=== PATIENT | female | born 1960 | race Caucasian/White ===

== ENCOUNTER 2018-08-27 12:38 | Inpatient (IN) ==
--- NOTE | 2018-08-27 13:32 | Emergency Department Note ---
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 Per the patient's caretakers the patient is cognitively delayed and lives in a residential. They state that at lunch today the patient was eating pureed hamburger helper when she began to choke. They state that they believe she tried to take a breath and accidentally aspirated the meal. They state that the patient did not cough anything up at the time, and was laughing and talking normally several minutes after the event. They state that the patient as a history of aspiration, and that it's in their protocol to bring the patient to the ED to be evaluated anytime she chokes. The patient denies any current difficulty breathing, chest pain, fevers, chills, cough, abdominal pain, nausea, or vomiting. The history, physical exam, and medical decision making was performed by the medical student either while I was physically present and actively involved or I personally re-performed the exam and medical decision making. I have verified the accuracy of the medical student's documentation with regards to the history, physical exam findings, and medical decision making. 57-year-old female with developmental delay presents emergency department with concern for aspiration on her pureed beef. Patient not reporting any symptoms after that time. She only had an episode of choking, but has been acting normally per her caregivers. 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) Pain Scale: 0 - Related Data Home Medications Medication Instructions Recorded Confirmed Aspirin Enteric Coated [Aspirin EC] 81 mg PO DAILY 06/11/16 08/27/18 Bismuth Subsalicylate 15 ml PO Q4H PRN 06/11/16 08/27/18 [PEPTO-BISMOL (262mg/15mL) Susp] Calcium Carbonate/Vitamin D3 1 tab PO DAILY 06/11/16 08/27/18 [Oyster Shell Calcium-Vit D Tab] Cholecalciferol (D-3) [Vitamin D] 1,000 unit PO DAILY 06/11/16 08/27/18 Furosemide [Lasix] 20 mg PO QPM 06/11/16 08/27/18 GuaiFENesin/Dextromethorphan 5 ml PO Q4H PRN 06/11/16 08/27/18 [Tussin Dm Syrup] Ibuprofen [Motrin] 600 mg PO BID PRN 06/11/16 08/27/18 Latanoprost [Xalatan] 1 drop RIGHT EYE HS 06/11/16 08/27/18 Loperamide HCl [Imodium A-D] 2 mg PO AD PRN 06/11/16 08/27/18 Loratadine [Claritin] 10 mg PO DAILY 06/11/16 08/27/18 Reagan/Poly/Geovany OINT [Triple 1 appl TP TID PRN 06/11/16 08/27/18 Antibiotic Ointment] Divalproex Sodium [Depakote] 500 mg PO BID 09/03/16 08/27/18 Acetaminophen [Tylenol] 500 mg PO Q6HR PRN 08/27/18 08/27/18 Atorvastatin [Lipitor] 40 mg PO QPM 08/27/18 08/27/18 Benztropine [Cogentin] 1 mg PO BID 08/27/18 08/27/18 Doxycycline Hyclate [Vibramycin] 100 mg PO BID 08/27/18 08/27/18 Fluvoxamine Maleate 50 mg PO QPM 08/27/18 08/27/18 Furosemide [Lasix] 40 mg PO QAM 08/27/18 08/27/18 Icosapent Ethyl [Vascepa] 1 cap PO TID 08/27/18 08/27/18 Levothyroxine Sodium 112 mcg PO QAM 08/27/18 08/27/18 Meloxicam 7.5 mg PO QAM 08/27/18 08/27/18 MetroNIDAZOLE [Metrocream] 1 applic TP BID 08/27/18 08/27/18 Multivitamin [One Daily Essential] 1 each PO DAILY 08/27/18 08/27/18 Mupirocin [Bactroban Oint] 1 applic TP TID 08/27/18 08/27/18 Propranolol [Inderal] 20 mg PO BID 08/27/18 08/27/18 Selenium Sulfide/Aloe Vera [Selsun 1 appl TP AD 08/27/18 08/27/18 Blue Moist 1% Shampoo] cloZAPine [Clozaril] 12.5 mg PO BID 08/27/18 08/27/18 clonazePAM [Clonazepam] 0.25 mg PO QAM 08/27/18 08/27/18 clonazePAM [Clonazepam] 0.5 mg PO QPM 08/27/18 08/27/18 Allergies Allergy/AdvReac Type Severity Reaction Status Date / Time betamethasone Allergy Hives Verified 04/20/17 20:35 [From Lotrisone] carbamazepine [From Tegretol] Allergy Hives Verified 04/20/17 20:35 chlorpromazine Allergy Hives Verified 04/20/17 20:35 [From Thorazine] clotrimazole [From Lotrisone] Allergy Hives Verified 04/20/17 20:35 Mesoridazine [From Serentil] Allergy Hives Verified 04/20/17 20:35 All systems ED: reviewed and negative except as stated. Review of Systems: As Per HPI Limitations: ROS unobtainable due to patients medical condition (Development delay) Constitutional: Denies: fever, chills, weakness, weight change Eyes: Denies: eye pain, eye discharge, vision change ENT ED: Denies: ear pain, throat pain, dental pain, hearing loss, epistaxis, congestion, dysphagia Cardiovascular: Denies: chest pain, palpitations, dyspnea on exertion, edema, syncope Respiratory: Reports: dyspnea (Had initially, none currently). Denies: cough, wheezes, hemoptysis, stridor Gastrointestinal: Denies: abdominal pain, nausea, vomiting, diarrhea, constipation, hematemesis, melena, hematochezia Genitourinary: Denies: dysuria, frequency, hematuria, discharge Musculoskeletal: Denies: back pain, neck pain, arthralgia, myalgia Integumentary: Reports: as per HPI. Denies: rash, abrasion, lesions Neurological: Reports: as per HPI. Denies: headache, weakness, numbness, paresthesias, confusion, abnormal gait, vertigo Psychiatric: Reports: as per HPI, other (Cognitively delayed). 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 LEADER history: Reports: no THERAPEUTIC RECREATION LEADER history - Social History Smoking Status: Never smoker Smokeless Tobacco Status: No Alcohol use: Reports: none Drug use: Reports: none Physical Exam - General Limitations: no limitations General appearance: alert - Head Head exam: atraumatic, normocephalic, normal inspection - Eye Eye exam: Present: normal appearance, PERRL, EOMI - ENT ENT exam: normal exam, normal oropharynx, mucous membranes moist - Neck Neck exam: Present: normal inspection, full ROM, trachea midline - Chest Chest inspection: Present: normal inspection, symmetric chest wall rise - Respiratory Respiratory exam: Present: normal lung sounds bilaterally. Absent: respiratory distress, wheezes, stridor - Cardiovascular Cardiovascular exam: Present: regular rate, normal rhythm, normal heart sounds - Abdominal Exam Abdominal exam: Present: soft, Non-Tender. Absent: tenderness, distention, guarding, rebound, rigidity - Extremities Exam Extremities exam: Present: normal inspection, full ROM. Absent: tenderness, pedal edema - Back Exam Back exam: Present: normal inspection, full ROM. Absent: tenderness - Neurological Exam Neurological exam: Present: alert, oriented X3 - Psychiatric Psychiatric exam: Present: normal affect, normal mood - Skin Skin exam: Present: warm, dry, intact, normal color Course Vital Signs Temperature 97.9 F 08/27/18 12:44 Pulse Rate 82 08/27/18 12:44 Respiratory Rate 20 08/27/18 12:44 Blood Pressure 129/70 08/27/18 12:44 O2 Sat by Pulse Oximetry 96 08/27/18 12:44 Temperature 97.9 F 08/27/18 12:44 Pulse Rate 85 08/27/18 16:37 Respiratory Rate 19 08/27/18 16:37 Blood Pressure 100/84 08/27/18 16:37 O2 Sat by Pulse Oximetry 93 08/27/18 16:37 Oxygen Delivery Oxygen Delivery Nasal Cannula Medical Decision Making - [facility] Narrative Medical decision making narrative: 57-year-old female presents emergency Department concern for aspiration. Patient hemodynamically stable not in any acute distress at initial presentation. We will obtain chest x-ray did not reveal any acute on amount. Patient was able tolerate oral intake. However, at time of disposition, patient became hypoxic 104 L of oxygen via nasal cannula. She was tachycardic as well. We obtained CT angiogram of the chest. Not reveal any evidence of pneumonia or pneumonitis. However, at this time, patient will require admission as she does not have oxygen at the residential. Also, she needed observation for further observation. I spoke with Dr. Croft, the teacher of gifted students, who stated that she did not require any bronchoscopy at this time. Patient stable on 4 L of oxygen via nasal cannula at time of admission. Chest X-Ray 08/27/18 13:59 IMPRESSION: Unremarkable appearing lateral view of the chest D/ / Jez Chand MD / Jez Chand MD Interpreting Provider: Jez Chand MD Chest CTA 08/27/18 17:00 IMPRESSION: 1. No acute pulmonary emboli. 2. Mild hypoaeration and atelectasis with no evidence of aspiration pneumonitis. No effusion or pneumothorax. 3. Mild cardiomegaly with no acute mediastinal abnormality. 4. Severe hepatic steatosis. D/ : / 08/27/2018 20:03:53 Earle Garcia MD / eli Interpreting Provider: Earle Garcia MD Vital Signs Temperature 97.9 F 08/27/18 12:44 Pulse Rate 82 08/27/18 12:44 Respiratory Rate 20 08/27/18 12:44 Blood Pressure 129/70 08/27/18 12:44 O2 Sat by Pulse Oximetry 96 08/27/18 12:44 Temperature 97.9 F 08/27/18 12:44 Pulse Rate 85 08/27/18 16:37 Respiratory Rate 19 08/27/18 16:37 Blood Pressure 100/84 08/27/18 16:37 O2 Sat by Pulse Oximetry 93 08/27/18 16:37 Oxygen Delivery Oxygen Delivery Nasal Cannula - Lab Data Result diagrams: 08/27/18 15:50 08/27/18 15:22 Lab Results 08/27/18 08/27/18 08/27/18 Range/Units 15:22 15:42 15:50 WBC 6.8 (4.3-11.1) K/mcL RBC 5.01 H (3.82-4.97) M/mcL Hgb 14.7 (11.5-15.4) g/dL Hct 46.0 H (35.3-44.9) % MCV 91.8 (83.0-100.0) fL MCH 29.3 (28.0-33.3) pg MCHC 32.0 (31.6-35.5) g/dL RDW 12.4 (11.5-14.5) % Plt Count 134 L (140-400) K/mcL MPV 9.7 (9.4-12.4) fL Immature Gran % 0.4 (0-4) % Seg Neutrophils % 39.0 % Lymphocytes % 42.8 % Monocytes % 14.5 % Eosinophils % 2.7 % Basophils % 0.6 % Neutrophils # 2.6 (1.6-8.9) K/mcL Lymphocytes # 2.9 (0.6-4.6) K/mcL Monocytes # 1.0 (0.0-1.3) K/mcL Eosinophils # 0.2 (0.0-0.6) K/mcL Basophils # 0.0 (0.0-0.2) K/mcL D-Dimer 561 H (0-500) ng/mLFEU Sodium 142 (136-145) mEq/L Potassium 4.4 (3.5-5.1) mEq/L Chloride 101 (98-107) mEq/L Carbon Dioxide 31 H (23-29) mEq/L BUN 16 (6-20) mg/dL Creatinine 0.72 (0.60-1.20) mg/dL Est GFR ( Amer) > 60 (> 60) Est GFR (Non-Af Amer) > 60 (> 60) BUN/Creatinine Ratio 22 (6-26) Glucose 130 H (70-105) mg/dL Calculated Osmolality 297 (280-300) Calcium 8.9 (8.6-10.3) mg/dL Troponin I < 0.03 (< 0.04) ng/mL B-Natriuretic Peptide (Less than 100) pg/mL 08/27/18 Range/Units 15:50 WBC (4.3-11.1) K/mcL RBC (3.82-4.97) M/mcL Hgb (11.5-15.4) g/dL Hct (35.3-44.9) % MCV (83.0-100.0) fL MCH (28.0-33.3) pg MCHC (31.6-35.5) g/dL RDW (11.5-14.5) % Plt Count (140-400) K/mcL MPV (9.4-12.4) fL Immature Gran % (0-4) % Seg Neutrophils % % Lymphocytes % % Monocytes % % Eosinophils % % Basophils % % Neutrophils # (1.6-8.9) K/mcL Lymphocytes # (0.6-4.6) K/mcL Monocytes # (0.0-1.3) K/mcL Eosinophils # (0.0-0.6) K/mcL Basophils # (0.0-0.2) K/mcL D-Dimer (0-500) ng/mLFEU Sodium (136-145) mEq/L Potassium (3.5-5.1) mEq/L Chloride (98-107) mEq/L Carbon Dioxide (23-29) mEq/L BUN (6-20) mg/dL Creatinine (0.60-1.20) mg/dL Est GFR ( Amer) (> 60) Est GFR (Non-Af Amer) (> 60) BUN/Creatinine Ratio (6-26) Glucose (70-105) mg/dL Calculated Osmolality (280-300) Calcium (8.6-10.3) mg/dL Troponin I (< 0.04) ng/mL B-Natriuretic Peptide 36 (Less than 100) pg/mL
--- NOTE | 2018-08-27 15:07 | Emergency Department Note ---
Disposition Clinical Impression: Cough, At risk for aspiration, Hypoxia Disposition: Admitted As Inpatient Condition: Good Referrals: Timothy Jenkins MD [Primary Care Provider] - 08/30/18 (cough ) Forms: ED Satisfaction Letter Time of Disposition: 15:07 General Adult HPI - General Chief complaint: ED Shortness of Breath/Dyspnea Stated complaint: LINDSEY Time Seen by Provider: 08/27/18 12:43 Source: patient, EMS Limitations: no limitations - History of Present Illness Pain Scale: 0 - Related Data Home Medications Medication Instructions Recorded Confirmed Aspirin 650 mg PO Q6H PRN 06/11/16 09/03/16 Aspirin Enteric Coated [Aspirin EC] 81 mg PO DAILY 06/11/16 09/03/16 Bismuth Subsalicylate 15 ml PO Q4H PRN 06/11/16 09/03/16 [PEPTO-BISMOL (262mg/15mL) Susp] Calcium Carbonate/Vitamin D3 2 each PO DAILY 06/11/16 09/03/16 [Oyster Shell Calcium-Vit D Tab] Chloraseptic Shell [Chloraseptic] 2 spray MM Q2H PRN 06/11/16 09/03/16 Cholecalciferol (D-3) [Vitamin D] 1,000 unit PO DAILY 06/11/16 09/03/16 Furosemide [Lasix] 20 mg PO QAM 06/11/16 09/03/16 GuaiFENesin/Dextromethorphan 5 ml PO Q4H PRN 06/11/16 09/03/16 [Tussin Dm Syrup] Ibuprofen [Motrin] 600 mg PO BID PRN 06/11/16 09/03/16 Ketotifen Fumarate [Zaditor] 1 drop BOTH EYES BID PRN 06/11/16 09/03/16 Latanoprost [Xalatan] 1 drop RIGHT EYE HS 06/11/16 09/03/16 Levothyroxine [Synthroid] 50 mcg PO QAM 06/11/16 09/03/16 Loperamide HCl [Imodium A-D] 2 mg PO AD PRN 06/11/16 09/03/16 Loratadine [Claritin] 10 mg PO DAILY 06/11/16 09/03/16 Multivitamin [Multi-Day Vitamins] 1 each PO DAILY 06/11/16 09/03/16 Reagan/Poly/Geovany OINT [Triple 1 appl TP TID PRN 06/11/16 09/03/16 Antibiotic Ointment] Hope-3/Dha/Epa/Fish Oil [Fish Oil 1 each PO TID 06/11/16 09/03/16 1,000 mg Softgel] Selenium Sulfide/Menthol [Selsun 1 appl TP DAILY 06/11/16 09/03/16 Blue 1% Shampoo] Simvastatin [Zocor] 20 mg PO DAILY 06/11/16 09/03/16 Triamcinolone Acetonide 1 appl TP BID PRN 06/11/16 09/03/16 Aripiprazole [Abilify] 20 mg PO DAILY 09/03/16 09/03/16 Divalproex Sodium [Depakote] 500 mg PO BID 09/03/16 09/03/16 Escitalopram [Lexapro] 10 mg PO DAILY 09/03/16 09/03/16 Magnesium Hydroxide [Milk of 30 ml PO DAILY PRN 09/03/16 09/03/16 Magnesia] Allergies Allergy/AdvReac Type Severity Reaction Status Date / Time betamethasone Allergy Hives Verified 04/20/17 20:35 [From Lotrisone] carbamazepine [From Tegretol] Allergy Hives Verified 04/20/17 20:35 chlorpromazine Allergy Hives Verified 04/20/17 20:35 [From Thorazine] clotrimazole [From Lotrisone] Allergy Hives Verified 04/20/17 20:35 Mesoridazine [From Serentil] Allergy Hives Verified 04/20/17 20:35 Constitutional: Denies: fever, chills, weakness, weight change Eyes: Denies: eye pain, eye discharge, vision change ENT ED: Denies: ear pain, throat pain, dental pain, hearing loss, epistaxis, congestion, dysphagia Cardiovascular: Denies: chest pain, palpitations, dyspnea on exertion, edema, syncope Respiratory: Reports: dyspnea (Had initially, none currently). Denies: cough, wheezes, hemoptysis, stridor Gastrointestinal: Denies: abdominal pain, nausea, vomiting, diarrhea, constipation, hematemesis, melena, hematochezia Genitourinary: Denies: dysuria, frequency, hematuria, discharge Musculoskeletal: Denies: back pain, neck pain, arthralgia, myalgia Integumentary: Reports: as per HPI. Denies: rash, abrasion, lesions Neurological: Reports: as per HPI. Denies: headache, weakness, numbness, paresthesias, confusion, abnormal gait, vertigo Psychiatric: Reports: as per HPI, other (Cognitively delayed). Denies: anxiety, depression, suicidal thoughts, homicidal thoughts, auditory hallucinations, visual hallucinations Endocrine: Denies: fatigue Hematological/Lymphatic: Denies: easy bleeding, easy bruising Allergic/Immunologic: Denies: facial swelling, urticaria Past Medical History - Past Medical History Medical history: Reports: hyperlipidemia, other, thyroid disease, CHF Surgical history: Reports: no surgical history Psychiatric history: Reports: previous psychiatric hospitalization, other, bipolar TILE HELPER history: Reports: no TILE HELPER history - Social History Smoking Status: Never smoker Smokeless Tobacco Status: No Alcohol use: Reports: none Drug use: Reports: none Physical Exam - General Limitations: no limitations General appearance: alert Course Course Narrative: upon re-evaluation of patient it appears that she is becoming hypoxic to 87% on RA and typically does not need supplemental oxygen therapy and tachycardiac to 120. We will continue to cardooupulmoary wokrup and then admit to medicine [facility] pulmonolofy consutl for possibl fore[place] body apsiration . place on 3LNC and now at 94% Vital Signs Temperature 97.9 F 08/27/18 12:44 Pulse Rate 82 08/27/18 12:44 Respiratory Rate 20 08/27/18 12:44 Blood Pressure 129/70 08/27/18 12:44 O2 Sat by Pulse Oximetry 96 08/27/18 12:44 Temperature 97.9 F 08/27/18 12:44 Pulse Rate 82 08/27/18 12:44 Respiratory Rate 20 08/27/18 12:44 Blood Pressure 129/70 08/27/18 12:44 O2 Sat by Pulse Oximetry 96 08/27/18 12:50 Oxygen Delivery Oxygen Delivery Nasal Cannula Attestation Statement - Attestation Attestation: I examined this patient and my medical decision-making was reviewed with the Resident Physician. I agree with the documented findings, disposition and treatment plan as described except to the extent set forth below. 57 year old female presents to the ED with complaits of possible aspiration while she was eating her food today, CXR is negative. she is tolerating PO and her secretions and denies chest pain or dificulty breathing or swallowing. She is not hypoxic. We will dischargeh home
[2018-08-27] MEDS ORDERED: Ipratropium/Albuterol Neb 3 ML IH ONE (15:23)
[2018-08-27 16:10] LABS: Basophils % 0.6 %; Eosinophils # 0.2 K/mcL (0.0-0.6); Eosinophils % 2.7 %; Hemoglobin 14.7 g/dL (11.5-15.4); Immature Granulocytes % 0.4 % (0-4); Lymphocytes # 2.9 K/mcL (0.6-4.6); Lymphocytes % 42.8 %; Mean Corpuscular Hemoglobin 29.3 pg (28.0-33.3); Mean Corpuscular Volume 91.8 fL (83.0-100.0); Mean Platelet Volume 9.7 fL (9.4-12.4); Monocytes % 14.5 %; Neutrophils # 2.6 K/mcL (1.6-8.9); Platelet Count 134 K/mcL (140-400); Red Blood Count 5.01 M/mcL (3.82-4.97); Red Cell Distribution Width 12.4 % (11.5-14.5)
[2018-08-27 16:25] LABS: Troponin I < 0.03 ng/mL (< 0.04)
[2018-08-27 16:47] LABS: BUN/Creatinine Ratio 22 (6-26); Blood Urea Nitrogen 16 mg/dL (6-20); Calcium 8.9 mg/dL (8.6-10.3); Carbon Dioxide 31 mEq/L (23-29); Chloride 101 mEq/L (98-107); Glucose 130 mg/dL (70-105); Osmolality,Calculated 297 (280-300); Potassium 4.4 mEq/L (3.5-5.1); Sodium 142 mEq/L (136-145); eGFR For Non-African Americans > 60 (> 60)
[2018-08-27] MEDS ORDERED: Isovue-370 500 ML INFUS..BTL IV ONE (17:00)
--- NOTE | 2018-08-27 19:09 | Electrocardiograph Report ---
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
[2018-08-27] MEDS ORDERED: Bismuth Subsalicylate 120 ML ORAL SUSPENSION PO PRN (20:56)
[2018-08-27] MEDS ORDERED: Ibuprofen 600 MG TABLET PO PRN (20:56)
--- NOTE | 2018-08-27 21:15 | Internal Med History&Physical ---
Date of Encounter: 08/27/18 Time of Encounter: 21:13 Internal Medicine - H&P: HPI Chief complaint: hypoxia Admitted From: Home Plans for Post Hospital Care: Home History of present illness: Katya Guzman is a 55 year old woman with intellectual disability and psychiatric disorders who is brought into the emergency room by her caretakers after aspirating pureed food. It is reported that due to her cognitive disability she lives in a [facility] and that frequently undergoes aspiration episodes in which she is brought in for medical assessment. It is stated that as she tried to take a breath she accidentally aspirated her meal. She did not cough up anything and was well-appearing for review minutes afterwards however as per their protocol she is to be brought into the ED any time she reportedly chokes. In the ER she was rather well-appearing and in no acute distress. X- ray did not reveal any abnormalities and she was to be discharged home however on subsequent reassessment she was noted hypoxic to 87% on room air and tachycardic at 120 even though usually she never required supplemental oxygen. She was placed on 3L nasal cannula with improvement to 94% and a CTA was done to rule out foreign body and pulmonary embolism and these findings were negative however due to her ongoing hypoxia with no apparent reason she is admitted for observation. There were no signs of pneumonitis on CT imaging but some mild atelectasis and areas of hypoaeration. On my assessment she reports feeling well. She does admit to having choked on and had some difficulty breathing but feels better with the breathing treatment. She denies chest pain, fever, chills. Past Med Surg Social Fam HX - Past Medical History Medical history: hyperlipidemia, other, thyroid disease, CHF Additional medical history: Psychiatric history: previous psychiatric hospitalization, other, bipolar - Past Surgical History Surgical History: no surgical history Additional surgical history: uk - Social History Smoking Status: Never smoker Smokeless Tobacco Status: No Alcohol use: none Drug use: none Internal Medicine - H&P: Meds Aspirin Enteric Coated [Aspirin EC] 81 mg PO DAILY 06/11/16 [History] Bismuth Subsalicylate [PEPTO-BISMOL (262mg/15mL) Susp] 15 ml PO Q4H PRN 06/11/16 [History] Calcium Carbonate/Vitamin D3 [Oyster Shell Calcium-Vit D Tab] 1 tab PO DAILY 06/11/16 [History] Cholecalciferol (D-3) [Vitamin D] 1,000 unit PO DAILY 06/11/16 [History] Furosemide [Lasix] 20 mg PO QPM 06/11/16 [History] GuaiFENesin/Dextromethorphan [Tussin Dm Syrup] 5 ml PO Q4H PRN 06/11/16 [History] Ibuprofen [Motrin] 600 mg PO BID PRN 06/11/16 [History] Latanoprost [Xalatan] 1 drop RIGHT EYE HS 06/11/16 [History] Loperamide HCl [Imodium A-D] 2 mg PO AD PRN 06/11/16 [History] Loratadine [Claritin] 10 mg PO DAILY 06/11/16 [History] Reagan/Poly/Geovany OINT [Triple Antibiotic Ointment] 1 appl TP TID PRN 06/11/16 [History] Divalproex Sodium [Depakote] 500 mg PO BID 09/03/16 [History] Acetaminophen [Tylenol] 500 mg PO Q6HR PRN 08/27/18 [History] Atorvastatin [Lipitor] 40 mg PO QPM 08/27/18 [History] Benztropine [Cogentin] 1 mg PO BID 08/27/18 [History] Doxycycline Hyclate [Vibramycin] 100 mg PO BID 08/27/18 [History] Fluvoxamine Maleate 50 mg PO QPM 08/27/18 [History] Furosemide [Lasix] 40 mg PO QAM 08/27/18 [History] Icosapent Ethyl [Vascepa] 1 cap PO TID 08/27/18 [History] Levothyroxine Sodium 112 mcg PO QAM 08/27/18 [History] Meloxicam 7.5 mg PO QAM 08/27/18 [History] MetroNIDAZOLE [Metrocream] 1 applic TP BID 08/27/18 [History] Multivitamin [One Daily Essential] 1 each PO DAILY 08/27/18 [History] Mupirocin [Bactroban Oint] 1 applic TP TID 08/27/18 [History] Propranolol [Inderal] 20 mg PO BID 08/27/18 [History] Selenium Sulfide/Aloe Vera [Selsun Blue Moist 1% Shampoo] 1 appl TP AD 08/27/18 [History] cloZAPine [Clozaril] 12.5 mg PO BID 08/27/18 [History] clonazePAM [Clonazepam] 0.25 mg PO QAM 08/27/18 [History] clonazePAM [Clonazepam] 0.5 mg PO QPM 08/27/18 [History] Allergy/AdvReac Type Severity Reaction Status Date / Time betamethasone Allergy Hives Verified 04/20/17 20:35 [From Lotrisone] carbamazepine [From Tegretol] Allergy Hives Verified 04/20/17 20:35 chlorpromazine Allergy Hives Verified 04/20/17 20:35 [From Thorazine] clotrimazole [From Lotrisone] Allergy Hives Verified 04/20/17 20:35 Mesoridazine [From Serentil] Allergy Hives Verified 04/20/17 20:35 All Systems PM: A 10-system review of systems was performed and is negative for pertinent findings except as documented above in the HPI. Family history obtained and found noncontributory. - Constitutional Vitals: Temp Pulse Resp BP Pulse Ox 97.9 F 85 19 100/84 93 08/27/18 12:44 08/27/18 16:37 08/27/18 16:37 08/27/18 16:37 08/27/18 16:37 Exam: Vitals: Reviewed General: Well-developed white woman, lying comfortably in bed in NAD. Skin: Warm and supple. HEENT: Moist mucous membranes. No conjunctivae pallor. Neck: No lymphadenopathy. No JVD. No carotid bruits. No palpable thyroid. Chest: Normal thoracic expansion. Normal breath sounds. Clear to auscultation. Heart: Normal S1 & S2; rhythmic. No rubs or murmurs. Abdomen: Non-distended, soft and non-tender to palpation. No peritoneal reaction. Extremities: No clubbing, cyanosis or edema. No calf tenderness. Normal distal pulses. Neurological: Awake, alert and oriented to person, place and time. No focal deficits. Psych: Affect appropriate. Internal Med - H&P Results - Labs CBC & Chem 7: 08/27/18 15:50 08/27/18 15:22 Labs: Short CBC 08/27/18 Range/Units 15:50 WBC 6.8 (4.3-11.1) K/mcL Hgb 14.7 (11.5-15.4) g/dL Hct 46.0 H (35.3-44.9) % Plt Count 134 L (140-400) K/mcL Neutrophils # 2.6 (1.6-8.9) K/mcL BMP 08/27/18 15:22 Sodium 142 Potassium 4.4 Chloride 101 Carbon Dioxide 31 H BUN 16 Creatinine 0.72 Glucose 130 H Calcium 8.9 Cardiac Enzymes 08/27/18 Range/Units 15:22 Troponin I < 0.03 (< 0.04) ng/mL - Impressions ITS Impressions Chest X-Ray 08/27/18 13:17 IMPRESSION: No acute cardiopulmonary disease. D/ / 08/27/2018 14:19:29 [facility] Shah MD / [facility] Interpreting Provider: Ten Shah MD Chest X-Ray 08/27/18 13:59 IMPRESSION: Unremarkable appearing lateral view of the chest D/ / Jez Chand MD / Jez Chand MD Interpreting Provider: Jez Chand MD Chest CTA 08/27/18 17:00 IMPRESSION: 1. No acute pulmonary emboli. 2. Mild hypoaeration and atelectasis with no evidence of aspiration pneumonitis. No effusion or pneumothorax. 3. Mild cardiomegaly with no acute mediastinal abnormality. 4. Severe hepatic steatosis. D/ : / 08/27/2018 20:03:53 Earle Garcia MD / [facility] Interpreting Provider: Earle Garcia MD - Assessment and plan (1) Hypoxia Current Visit: Yes Status: Acute Assessment and plan: Unclear reason; possibly transient due to aspiration episode. Seems to be i mproving. No signs of pneumonitis; possible atelectasis component. No indication for steroids or antimicrobials. Will monitor overnight and continue supplemental oxygen as needed with nebulizer therapy. Incentive spirometry trial. (2) Mental retardation Current Visit: Yes Status: Chronic Assessment and plan: Resume all home meds. - Time Spent With Patient Total time spent is greater than 50% in coordination of care (as documented) at patient's floor/unit and/or counseling patient: Greater than 35 minutes
[2018-08-27] MEDS: clonazePAM 0.5 MG TABLET PO SCH (23:35)
[2018-08-27] MEDS: Latanoprost 2.5 ML BOTTLE RIGHT EYE SCH (23:35)
[2018-08-27] MEDS: Divalproex (12 HR) 250 MG TABLET PO SCH (23:35)
[2018-08-27] MEDS: cloZAPine 25 MG TABLET PO SCH (23:36)
[2018-08-27] MEDS: ICOSAPENT ETHYL PO SCH (23:38)
[2018-08-27] MEDS: Ipratropium/Albuterol Neb 3 ML IH SCH (23:39)
[2018-08-28] MEDS: Ipratropium/Albuterol Neb 3 ML IH SCH ×2 (03:48→10:50)
[2018-08-28] MEDS: *HR* Heparin 5,000 UNIT/ML VIAL SQ SCH ×2 (05:49→17:43)
[2018-08-28] MEDS: Loratadine 10 MG TABLET PO SCH (09:23)
[2018-08-28] MEDS: Furosemide 40 MG TABLET PO SCH (09:23)
[2018-08-28] MEDS: clonazePAM 0.5 MG TABLET PO SCH ×2 (09:23→17:43)
[2018-08-28] MEDS: Divalproex (12 HR) 250 MG TABLET PO SCH ×2 (09:24→20:30)
[2018-08-28] MEDS: cloZAPine 25 MG TABLET PO SCH ×2 (09:24→20:30)
[2018-08-28] MEDS: Cholecalciferol (D-3) 1,000 UNIT TABLET PO SCH (09:24)
[2018-08-28] MEDS: Multivit/Ca/Min/Fe/FA 1 TAB TABLET PO SCH (09:24)
[2018-08-28] MEDS: Aspirin Enteric Coated 81 MG Tablet PO SCH (09:24)
[2018-08-28] MEDS: ICOSAPENT ETHYL PO SCH ×3 (09:25→20:40)
[2018-08-28] MEDS ORDERED: Perflutren Lipid Microsphere 1.3 ML in 0.9 % Sodium Chloride 8.7 ML IVP ONE (11:32)
[2018-08-28] MEDS: FLUVOXAMINE MALEATE 50 MG PO SCH (17:43)
[2018-08-28] MEDS: Furosemide 20 MG TABLET PO SCH (17:43)
[2018-08-28] MEDS: Latanoprost 2.5 ML BOTTLE RIGHT EYE SCH (20:31)
--- NOTE | 2018-08-28 21:21 | Internal Med Progress Note ---
Hospitalist Progress Note - Encounter Date of Encounter: 08/28/18 Time of Encounter: 19:00 - Subjective Interval History: SUBJECTIVE: The patient feels good. She is not voicing any particular problems. She tells me, that she is not using oxygen at her home. She was brought here for hypoxia. She has underlying mental retardation. I found her on 5 L/min nasal cannula oxygen. I decreased it to 2 L/min; got a pulse ox of 92%. She is not showing any respiratory distress. I could not hear her coughing or wheezing. OBJECTIVE: Skin: Free of rash and discoloration. ENMT: Oral/pharyngeal mucosa is normal in appearance. Eyes: Sclera is white. There is no discharge from eyes. Respiratory: Normal breath sounds; no crackles or wheezes. CV: Heart is regular; no gallop or murmur. GI: Abdomen is soft and not tender. There is no palpable mass or visceromegaly. Neuro: There is no focal deficits. ADDITIONAL DATA: Her CBC and BMP from yesterday were normal. BNP was 36. CT angio of the chest was done at admission. It showed severe hepatic steatosi s. Otherwise, it showed normal findings. ASSESSMENT AND PLAN: Hypoxia. I will keep her on 2 L/min nasal cannula oxygen. I will repeat her chest x-ray tomorrow. She will have ABG on room air soon. She could have had aspiration. It is not reflected on her chest x-ray from admission. We will get her speech therapy to evaluate. Mental retardation. She has multiple psychiatric medications to keep her under control. DISPOSITION: - Exam Vitals: Temp Pulse Resp BP Pulse Ox 99.4 F 91 16 117/77 91 08/28/18 19:58 08/28/18 19:58 08/28/18 19:58 08/28/18 19:58 08/28/18 19:58 Exam: xx - Assessment and Plan (1) Hypoxia Current Visit: Yes Status: Acute (2) Mental retardation Current Visit: Yes Status: Chronic - Time Spent with Patient Total time spent is greater than 50% in coordination of care (as documented) at patient's floor/unit and/or counseling patient: 25 - 35 minutes Plan of Care Discussed with: patient Internal Medicine: Result - Labs CBC & Chem 7: 08/27/18 15:50 08/27/18 15:22 - ABG Interpretation ABG results: PT/INR, D-dimer D-Dimer 561 ng/mLFEU (0-500) H 08/27/18 15:42 Consult Discharge Plan - Plan Referrals: Timothy Jenkins MD [Primary Care Provider] -
[2018-08-29] MEDS: *HR* Heparin 5,000 UNIT/ML VIAL SQ SCH ×2 (06:09→17:23)
[2018-08-29] MEDS: Multivit/Ca/Min/Fe/FA 1 TAB TABLET PO SCH (09:35)
[2018-08-29] MEDS: clonazePAM 0.5 MG TABLET PO SCH ×2 (09:35→17:23)
[2018-08-29] MEDS: Aspirin Enteric Coated 81 MG Tablet PO SCH (09:35)
[2018-08-29] MEDS: cloZAPine 25 MG TABLET PO SCH ×2 (09:35→20:36)
[2018-08-29] MEDS: Divalproex (12 HR) 250 MG TABLET PO SCH ×2 (09:36→20:36)
[2018-08-29] MEDS: Loratadine 10 MG TABLET PO SCH (09:36)
[2018-08-29] MEDS: ICOSAPENT ETHYL PO SCH ×3 (09:36→20:37)
[2018-08-29] MEDS: Furosemide 40 MG TABLET PO SCH (09:36)
[2018-08-29] MEDS: Cholecalciferol (D-3) 1,000 UNIT TABLET PO SCH (09:36)
[2018-08-29] MEDS ORDERED: Furosemide 40 MG/4 ML VIAL IVP ONE (09:52)
--- NOTE | 2018-08-29 15:06 | Internal Med Progress Note ---
Hospitalist Progress Note - Encounter Date of Encounter: 08/29/18 Time of Encounter: 15:04 - Subjective Interval History: SUBJECTIVE: The patient he is using supplemental oxygen at 2 L/min nasal cannula. It gives her oxygen saturation of 90%. I gave her 40 mg of IV Lasix; he did not get her pulse ox better. She is not voicing any particular problems. We have not seen her having any symptoms/signs of aspiration with food/fluids. She does not have any coughing or wheezing. OBJECTIVE: She is afebrile. Skin: Free of rash and discoloration. ENMT: Oral/pharyngeal mucosa is normal in appearance. Eyes: Sclera is white. There is no discharge from eyes. Respiratory: Normal breath sounds; no crackles or wheezes. CV: Heart is regular; no gallop or murmur. GI: Abdomen is soft and not tender. There is no palpable mass or visceromegaly. Neuro: There is no focal deficits. ADDITIONAL DATA: Chest x-ray from today (before giving her IV Lasix) showed patchy right lower lung opacity; may represent atelectasis versus pneumonia. CT angio of the chest was done at admission. It showed severe hepatic steatosis. Otherwise, it showed normal findings. ASSESSMENT AND PLAN: Hypoxia. I will keep her on 2 L/min nasal cannula oxygen. She is on oral Lasix . I will check her CBC and BMP, as well as chest x-ray tomorrow. I am asking respiratory therapy to do ABG on 2 L/min nasal cannula oxygen. Mental retardation. She has multiple psychiatric medications to keep her under control. DISPOSITION: We will discharge her to her home tomorrow, if she remains stable. - Exam Vitals: Temp Pulse Resp BP Pulse Ox 98.1 F 92 18 124/70 98 08/29/18 12:12 08/29/18 12:12 08/29/18 12:12 08/29/18 12:12 08/29/18 12:12 Exam: xx - Assessment and Plan (1) Hypoxia Current Visit: Yes Status: Acute (2) Mental retardation Current Visit: Yes Status: Chronic - Time Spent with Patient Total time spent is greater than 50% in coordination of care (as documented) at patient's floor/unit and/or counseling patient: 25 - 35 minutes Plan of Care Discussed with: patient Internal Medicine: Result - Labs CBC & Chem 7: 08/27/18 15:50 08/27/18 15:22 - ABG Interpretation ABG results: PT/INR, D-dimer D-Dimer 561 ng/mLFEU (0-500) H 08/27/18 15:42 - Impressions Impressions Chest X-Ray 08/29/18 00:00 IMPRESSION: Patchy right lower lung opacity may represent atelectasis versus pneumonia. Mild pulmonary edema. D/ / Jason Edouard MD / Jason Edouard MD Interpreting Provider: Jason Edouard MD Consult Discharge Plan - Plan Referrals: Timothy Jenkins MD [Primary Care Provider] -
[2018-08-29 15:51] LABS: ABG Base Excess 13 mEq/L (-2 to 3); ABG HCO3 43 mEq/L (21-27); ABG Oxygen Saturation 87 % (95-98); ABG PCO2 81 mmHg (35-45); ABG PH 7.34 pH Units (7.32-7.45); ABG PO2 61 mmHg (85-104); ABG TCO2 46 mEq/L (20-26)
[2018-08-29] MEDS: FLUVOXAMINE MALEATE 50 MG PO SCH (17:23)
[2018-08-29] MEDS: Furosemide 20 MG TABLET PO SCH (17:23)
[2018-08-29] MEDS: Latanoprost 2.5 ML BOTTLE RIGHT EYE SCH (20:37)
[2018-08-30 04:39] LABS: Basophils % 0.4 %; Eosinophils # 0.2 K/mcL (0.0-0.6); Eosinophils % 2.2 %; Hemoglobin 15.1 g/dL (11.5-15.4); Immature Granulocytes % 0.3 % (0-4); Lymphocytes # 3.9 K/mcL (0.6-4.6); Lymphocytes % 42.6 %; Mean Corpuscular HGB Conc 32.8 g/dL (31.6-35.5); Mean Corpuscular Hemoglobin 29.6 pg (28.0-33.3); Mean Corpuscular Volume 90.2 fL (83.0-100.0); Mean Platelet Volume 9.8 fL (9.4-12.4); Monocytes # 1.2 K/mcL (0.0-1.3); Neutrophils # 3.8 K/mcL (1.6-8.9); Platelet Count 116 K/mcL (140-400); Red Cell Distribution Width 12.3 % (11.5-14.5); Segmented Neutrophils % 41.5 %
[2018-08-30 04:56] LABS: BUN/Creatinine Ratio 28 (6-26); Blood Urea Nitrogen 19 mg/dL (6-20); Calcium 8.3 mg/dL (8.6-10.3); Carbon Dioxide 34 mEq/L (23-29); Chloride 101 mEq/L (98-107); Glucose 96 mg/dL (70-105); Magnesium 2.2 mg/dL (1.6-2.6); Osmolality,Calculated 298 (280-300); Potassium 5.4 mEq/L (3.5-5.1); Sodium 143 mEq/L (136-145); eGFR For Non-African Americans > 60 (> 60)
[2018-08-30] MEDS: *HR* Heparin 5,000 UNIT/ML VIAL SQ SCH ×2 (06:38→17:09)
[2018-08-30] MEDS: clonazePAM 0.5 MG TABLET PO SCH ×2 (08:30→17:09)
[2018-08-30] MEDS: Multivit/Ca/Min/Fe/FA 1 TAB TABLET PO SCH (08:30)
[2018-08-30] MEDS: Aspirin Enteric Coated 81 MG Tablet PO SCH (08:30)
[2018-08-30] MEDS: cloZAPine 25 MG TABLET PO SCH ×2 (08:31→20:16)
[2018-08-30] MEDS: Cholecalciferol (D-3) 1,000 UNIT TABLET PO SCH (08:31)
[2018-08-30] MEDS: Divalproex (12 HR) 250 MG TABLET PO SCH ×2 (08:31→20:16)
[2018-08-30] MEDS: Loratadine 10 MG TABLET PO SCH (08:31)
[2018-08-30] MEDS: Furosemide 40 MG TABLET PO SCH (08:31)
[2018-08-30] MEDS: Furosemide 20 MG TABLET PO SCH (17:10)
[2018-08-30] MEDS: Latanoprost 2.5 ML BOTTLE RIGHT EYE SCH (20:19)
--- NOTE | 2018-08-30 22:12 | Internal Med Progress Note ---
Hospitalist Progress Note - Encounter Date of Encounter: 08/30/18 Time of Encounter: 19:00 - Subjective Interval History: SUBJECTIVE: The patient feels better today. I had to put her on BiPAP yesterday as she became lethargic; ABG showed PCO2 of 81 with PO2 of 61. Bicarb was 43. Today's bicarb by BMPs is 34. She talked to me. She knows that she is in the hospital. Feels good. Denies any chest pain. Denies difficulty breathing; on BiPAP. She has no coughing or wheezing. Denies abdominal pain, nausea and vomiting. She has normal urination. OBJECTIVE: She is afebrile. Skin: Free of rash and discoloration. ENMT: Oral/pharyngeal mucosa is normal in appearance. Eyes: Sclera is white. There is no discharge from eyes. Respiratory: Normal breath sounds; no crackles or wheezes. CV: Heart is regular; no gallop or murmur. GI: Abdomen is soft and not tender. There is no palpable mass or visceromegaly. Neuro: There is no focal deficits. ADDITIONAL DATA: Chest x-ray from yesterday (before giving her IV Lasix) showed patchy right lower lung opacity; may represent atelectasis versus pneumonia. Chest x-ray from today shows resolution of the right lower lobe opacity; it was likely atelectasis. CT angio of the chest was done at admission. It showed severe hepatic steatosis. Otherwise, it showed normal findings. CBC is normal with WBC of 9.2 thousand. BMP is normal, except of [id number]. ASSESSMENT AND PLAN: Hypoxia. Acute respiratory failure with hypoxia and hypercapnia. It looks like hypercapnia subsided. We will try to discontinue BiPAP. We will continue nebulizer treatments with DuoNeb. We may need to discontinue clonazepam, if she develops hypercapnia again. Dysphagia. The patient had swallowing evaluation today morning. They recommend pured diet/puddings. She may have regular liquids. Mental retardation. She has multiple psychiatric medications to keep her under control. DISPOSITION: We will [facility] to her [facility], when medically stable for minimum 24 hours. - Exam Vitals: Temp Pulse Resp BP Pulse Ox 98.4 F 87 18 155/86 90 08/30/18 19:25 08/30/18 19:25 08/30/18 19:25 08/30/18 19:25 08/30/18 19:25 Exam: xx - Assessment and Plan (1) Hypoxia Current Visit: Yes Status: Acute (2) Dysphagia Current Visit: Yes Status: Acute (3) Mental retardation Current Visit: Yes Status: Chronic - Time Spent with Patient Total time spent is greater than 50% in coordination of care (as documented) at patient's floor/unit and/or counseling patient: 25 - 35 minutes Plan of Care Discussed with: patient Internal Medicine: Result - Labs CBC & Chem 7: 08/30/18 04:20 08/30/18 04:20 Labs: Short CBC 08/30/18 Range/Units 04:20 WBC 9.2 (4.3-11.1) K/mcL Hgb 15.1 (11.5-15.4) g/dL Hct 46.0 H (35.3-44.9) % Plt Count 116 L (140-400) K/mcL Neutrophils # 3.8 (1.6-8.9) K/mcL BMP 08/30/18 04:20 Sodium 143 Potassium 5.4 H Chloride 101 Carbon Dioxide 34 H BUN 19 Creatinine 0.68 Glucose 96 Calcium 8.3 L - ABG Interpretation ABG results: ABG ABG pH 7.34 pH Units (7.32-7.45) 08/29/18 15:48 ABG pCO2 81 mmHg (35-45) H* 08/29/18 15:48 ABG pO2 61 mmHg (85-104) L 08/29/18 15:48 ABG O2 Saturation 87 % (95-98) L 08/29/18 15:48 PT/INR, D-dimer D-Dimer 561 ng/mLFEU (0-500) H 08/27/18 15:42 - Impressions Impressions Chest X-Ray 08/30/18 08:36 IMPRESSION: Resolved previously present right lower lobe opacity, favored to be due to atelectasis, less likely pneumonia. No acute cardiopulmonary disease. D/ / Ten Muhammad MD / Ten Muhammad MD Interpreting Provider: Ten Muhammad MD Consult Discharge Plan - Plan Referrals: Timothy Jenkins MD [Primary Care Provider] - 09/14/18 2:00 pm (Please follow up as schedule...) (2) Dysphagia Qualifiers: Dysphagia type: unspecified Qualified Code(s): R13.10 - Dysphagia, unspecified
[2018-08-31] MEDS ORDERED: Haloperidol Lactate 5 MG/ML VIAL IVP ONE (01:37)
[2018-08-31] MEDS: *HR* Heparin 5,000 UNIT/ML VIAL SQ SCH ×2 (05:23→18:35)
[2018-08-31] MEDS: clonazePAM 0.5 MG TABLET PO SCH ×2 (08:18→18:36)
[2018-08-31] MEDS: Divalproex (12 HR) 250 MG TABLET PO SCH ×2 (08:18→21:24)
[2018-08-31] MEDS: cloZAPine 25 MG TABLET PO SCH ×2 (08:19→21:24)
[2018-08-31] MEDS: Multivit/Ca/Min/Fe/FA 1 TAB TABLET PO SCH (08:19)
[2018-08-31] MEDS: Aspirin Enteric Coated 81 MG Tablet PO SCH (08:19)
[2018-08-31] MEDS: Cholecalciferol (D-3) 1,000 UNIT TABLET PO SCH (08:20)
[2018-08-31] MEDS: Furosemide 40 MG TABLET PO SCH (08:20)
[2018-08-31] MEDS: Loratadine 10 MG TABLET PO SCH (08:20)
[2018-08-31 08:51] LABS: Hematocrit 40.9 % (35.3-44.9); Mean Corpuscular HGB Conc 32.8 g/dL (31.6-35.5); Mean Corpuscular Hemoglobin 29.6 pg (28.0-33.3); Mean Corpuscular Volume 90.3 fL (83.0-100.0); Platelet Count 113 K/mcL (140-400); Red Blood Count 4.53 M/mcL (3.82-4.97)
[2018-08-31 08:56] LABS: Hemoglobin 13.4 g/dL (11.5-15.4)
[2018-08-31 09:20] LABS: Alanine Aminotransferase 41 Units/L (7-52); Albumin 3.1 g/dL (3.5-5.7); Albumin/Globulin Ratio 1.4 (1.1-2.2); Alkaline Phosphatase 84 Units/L (34-104); Aspartate Amino Transferase 41 Units/L (13-39); BUN/Creatinine Ratio 30 (6-26); Bilirubin,Total 0.4 mg/dL (0.3-1.0); Blood Urea Nitrogen 20 mg/dL (6-20); Calcium 8.4 mg/dL (8.6-10.3); Carbon Dioxide 40 mEq/L (23-29); Chloride 100 mEq/L (98-107); Globulin 2.2 g/dL (2.4-3.5); Glucose 96 mg/dL (70-105); Osmolality,Calculated 306 (280-300); Sodium 147 mEq/L (136-145); Total Protein 5.3 g/dL (6.4-8.9); eGFR For Non-African Americans > 60 (> 60)
[2018-08-31 11:14] LABS: ABG Base Excess 15 mEq/L (-2 to 3); ABG HCO3 46 mEq/L (21-27); ABG Oxygen Saturation 88 % (95-98); ABG PCO2 91 mmHg (35-45); ABG PH 7.32 pH Units (7.32-7.45); ABG PO2 63 mmHg (85-104); ABG TCO2 49 mEq/L (20-26)
--- NOTE | 2018-08-31 13:02 | Internal Med Progress Note ---
Hospitalist Progress Note - Encounter Date of Encounter: 08/31/18 Time of Encounter: 08:00 - Subjective Interval History: patient was seen and examined at bedside. today is my first encounter with patient. cannot provide much history Axox 1 ( to place not time or person) answers i dont know to all questions - Exam Vitals: Temp Pulse Resp BP Pulse Ox 97.8 F 73 15 114/72 93 08/31/18 11:26 08/31/18 11:26 08/31/18 11:08/31/18 11:08/31/18 12:36 Exam: General: Patient is alert, oriented, no acute distress, morbidly obese, poor hygeine Head: atraumatic, normocephalic, Eye: anicterus, EOMI ENT: mucous membranes moist, normal external ear exam Neck: normal inspection, trachea midline, full ROM, no carotid bruits Chest: normal inspection, symmetric chest rise Respiratory: Good respiratory effort. Bilateral breath sounds are clear without wheezing, crackles, or rhonchi. Cardiovascular: Regular rate and rhythm. s1 and s2 No clicks, rubs, gallops, or murmors. Abdomen: Bowel sounds present normoactive x-4 quadrants. Abdomen is soft, nondistended. no Epigastric tenderness. No guarding or rebound. No organomegaly noted, obese musculoskeletal: Spontaneously moving all extremities. no edema, no calf tenderness Skin: warm, dry, intact. 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) - Assessment and Plan (1) Acute respiratory failure with hypoxia and hypercapnia Current Visit: Yes Status: Acute Assessment and Plan: ABG on 08/31/18- 7.32/91/63/ on NC 32 most likely have underlying REJI was on lasix 60 mg daily- no history of heart disease ( echo reviewed) - stopped lasix as her bicarb on bmp is continuing to rise most likely secondary to lasix and hypercapnia will place patient on bipap repeat ABG in 2 hrs will consider pulmonology consultation based on repeat ABG overnight pulse ox for bipap on home oxygen will need OP PFTs and Sleep study CXR: 08/30/18 IMPRESSION: Resolved previously present right lower lobe opacity, favored to be due to atelectasis, less likely pneumonia. No acute cardiopulmonary disease. CTA: 08/27/18 IMPRESSION: 1. No acute pulmonary emboli. 2. Mild hypoaeration and atelectasis with no evidence of aspiration pneumonitis. No effusion or pneumothorax. 3. Mild cardiomegaly with no acute mediastinal abnormality. 4. Severe hepatic steatosis. PFTs in 2017- Spirometry shows moderate airway restrictive disease. Lung Volumes are moderately reduced. Flow Volume Loop: Restrictive. (2) Restrictive airway disease Current Visit: Yes Status: Acute Assessment and Plan: diagnosed on PFT in 2017 Duoneb, bipap and oxygen PFT 2017- Spirometry shows moderate airway restrictive disease. Lung Volumes are moderately reduced. Flow Volume Loop: Restrictive. (3) Developmental delay, severe Current Visit: Yes Status: Acute Assessment and Plan: associated with behavioral disturbancce requires assistance with ADLs . continue home medications PT/ rehab (4) Dysphagia Current Visit: Yes Status: Acute Assessment and Plan: pureed textures and pudding thick liquids strict aspiration precautions keep HOB Elevated (5) Hyperlipidemia Current Visit: Yes Status: Acute Assessment and Plan: continue statins (6) Morbidly obese Current Visit: Yes Status: Acute Assessment and Plan: nutrition consult BMI 43.9 (7) Hypothyroidism Current Visit: Yes Status: Acute Assessment and Plan: continue home dose synthroid (8) DVT prophylaxis Current Visit: Yes Status: Acute Assessment and Plan: heparin sc - Time Spent with Patient Total time spent is greater than 50% in coordination of care (as documented) at patient's floor/unit and/or counseling patient: Internal Medicine: Result - Labs CBC & Chem 7: 08/31/18 08:06 08/31/18 08:06 Labs: Short CBC 08/31/18 Range/Units 08:06 WBC 5.7 (4.3-11.1) K/mcL Hgb 13.4 D (11.5-15.4) g/dL Hct 40.9 (35.3-44.9) % Plt Count 113 L (140-400) K/mcL BMP 08/31/18 08:06 Sodium 147 H Potassium 4.0 Chloride 100 Carbon Dioxide 40 H* BUN 20 Creatinine 0.66 Glucose 96 Calcium 8.4 L Liver Function 08/31/18 Range/Units 08:06 Total Bilirubin 0.4 (0.3-1.0) mg/dL AST 41 H (13-39) Units/L ALT 41 (7-52) Units/L Alkaline Phosphatase 84 (34-104) Units/L Albumin 3.1 L (3.5-5.7) g/dL - ABG Interpretation ABG results: ABG ABG pH 7.32 pH Units (7.32-7.45) 08/31/18 10:57 ABG pCO2 91 mmHg (35-45) H* 08/31/18 10:57 ABG pO2 63 mmHg (85-104) L 08/31/18 10:57 ABG O2 Saturation 88 % (95-98) L 08/31/18 10:57 PT/INR, D-dimer D-Dimer 561 ng/mLFEU (0-500) H 08/27/18 15:42 Consult Discharge Plan - Plan Referrals: Timothy Jenkins MD [Primary Care Provider] - 09/14/18 2:00 pm (Please follow up as schedule...) (4) Dysphagia Qualifiers: Dysphagia type: oropharyngeal phase Qualified Code(s): R13.12 - Dysphagia, oropharyngeal phase (5) Hyperlipidemia Qualifiers: Hyperlipidemia type: unspecified Qualified Code(s): E78.5 - Hyperlipidemia, unspecified (7) Hypothyroidism Qualifiers: Hypothyroidism type: acquired Qualified Code(s): E03.9 - Hypothyroidism, unspecified
[2018-08-31] MEDS: Ipratropium/Albuterol Neb 3 ML IH SCH ×3 (15:52→23:26)
[2018-08-31 16:40] LABS: ABG Base Excess 14 mEq/L (-2 to 3); ABG HCO3 42 mEq/L (21-27); ABG Oxygen Saturation 95 % (95-98); ABG PCO2 71 mmHg (35-45); ABG PH 7.38 pH Units (7.32-7.45); ABG PO2 79 mmHg (85-104); ABG TCO2 45 mEq/L (20-26)
[2018-08-31] MEDS: Latanoprost 2.5 ML BOTTLE RIGHT EYE SCH (21:28)
--- NOTE | 2018-08-31 21:58 | Electrocardiograph Report ---
[address] [address] Test Date: 2018-08-27 Pat Name: Katya Guzman Department: EXAM9 Room: 2A24 Gender: F [employer]: : 1960 Requested By: Wali Francois Order Number: [id number] Reading MD: Donita Kong Measurements Intervals [place] Rate: 86 P: 48 DC: 161 QRS: -1 QRSD: 92 T: 40 QT: 362 QTc: 433 Interpretive Statements Sinus rhythm Low voltage, precordial leads Nonspecific T wave abnormality Electronically Signed On 08-31-2018 21:56:34 EST by Donita Kong
[2018-09-01] MEDS: Ipratropium/Albuterol Neb 3 ML IH SCH ×6 (03:39→23:24)
[2018-09-01] MEDS: *HR* Heparin 5,000 UNIT/ML VIAL SQ SCH (05:56)
[2018-09-01 06:12] LABS: Hematocrit 41.8 % (35.3-44.9); Hemoglobin 13.4 g/dL (11.5-15.4); Mean Corpuscular HGB Conc 32.1 g/dL (31.6-35.5); Mean Corpuscular Hemoglobin 29.5 pg (28.0-33.3); Mean Corpuscular Volume 91.9 fL (83.0-100.0); Platelet Count 114 K/mcL (140-400); Red Blood Count 4.55 M/mcL (3.82-4.97); Red Cell Distribution Width 12.3 % (11.5-14.5)
[2018-09-01 08:06] LABS: BUN/Creatinine Ratio 26 (6-26); Blood Urea Nitrogen 19 mg/dL (6-20); Calcium 8.5 mg/dL (8.6-10.3); Carbon Dioxide 40 mEq/L (23-29); Chloride 100 mEq/L (98-107); Glucose 124 mg/dL (70-105); Osmolality,Calculated 304 (280-300); Potassium 3.7 mEq/L (3.5-5.1); Sodium 145 mEq/L (136-145); eGFR For Non-African Americans > 60 (> 60)
[2018-09-01 08:18] LABS: ABG Base Excess 14 mEq/L (-2 to 3); ABG HCO3 44 mEq/L (21-27); ABG Oxygen Saturation 93 % (95-98); ABG PCO2 87 mmHg (35-45); ABG PH 7.32 pH Units (7.32-7.45); ABG PO2 78 mmHg (85-104); ABG TCO2 47 mEq/L (20-26); Blood Gas Modality ASSIST CONTROL; Blood Gas PEEP 14 cm H2O; Blood Gas Pressure Support 6 cm H2O
[2018-09-01] MEDS: cloZAPine 25 MG TABLET PO SCH ×2 (09:00→20:15)
[2018-09-01] MEDS: Cholecalciferol (D-3) 1,000 UNIT TABLET PO SCH (09:00)
[2018-09-01] MEDS: Loratadine 10 MG TABLET PO SCH (09:01)
[2018-09-01] MEDS: clonazePAM 0.5 MG TABLET PO SCH (09:01)
[2018-09-01] MEDS: Aspirin Enteric Coated 81 MG Tablet PO SCH (09:01)
[2018-09-01] MEDS: Multivit/Ca/Min/Fe/FA 1 TAB TABLET PO SCH (09:02)
[2018-09-01] MEDS: Divalproex (12 HR) 250 MG TABLET PO SCH (09:02)
[2018-09-01 10:26] LABS: ABG Base Excess 15 mEq/L (-2 to 3); ABG HCO3 46 mEq/L (21-27); ABG Oxygen Saturation 95 % (95-98); ABG PCO2 85 mmHg (35-45); ABG PH 7.34 pH Units (7.32-7.45); ABG PO2 84 mmHg (85-104); ABG TCO2 48 mEq/L (20-26); Blood Gas Modality AVAPS; Blood Gas PEEP 16 cm H2O; Blood Gas Pressure Support 6 cm H2O; Blood Gas VT 550 cc
--- NOTE | 2018-09-01 11:15 | Pulmonology Consult Note ---
<Abbe Del Rio W - Last Filed: 09/01/18 17:17> Date of Encounter: 09/01/18 Medications and Allergies Aspirin Enteric Coated [Aspirin EC] 81 mg PO DAILY 06/11/16 [History] Bismuth Subsalicylate [PEPTO-BISMOL (262mg/15mL) Susp] 15 ml PO Q4H PRN 06/11/16 [History] Calcium Carbonate/Vitamin D3 [Oyster Shell Calcium-Vit D Tab] 1 tab PO DAILY 06/11/16 [History] Cholecalciferol (D-3) [Vitamin D] 1,000 unit PO DAILY 06/11/16 [History] Furosemide [Lasix] 20 mg PO QPM 06/11/16 [History] GuaiFENesin/Dextromethorphan [Tussin Dm Syrup] 5 ml PO Q4H PRN 06/11/16 [History] Ibuprofen [Motrin] 600 mg PO BID PRN 06/11/16 [History] Latanoprost [Xalatan] 1 drop RIGHT EYE HS 06/11/16 [History] Loperamide HCl [Imodium A-D] 2 mg PO AD PRN 06/11/16 [History] Loratadine [Claritin] 10 mg PO DAILY 06/11/16 [History] Reagan/Poly/Geovany OINT [Triple Antibiotic Ointment] 1 appl TP TID PRN 06/11/16 [History] Divalproex Sodium [Depakote] 500 mg PO BID 09/03/16 [History] Acetaminophen [Tylenol] 500 mg PO Q6HR PRN 08/27/18 [History] Atorvastatin [Lipitor] 40 mg PO QPM 08/27/18 [History] Benztropine [Cogentin] 1 mg PO BID 08/27/18 [History] Doxycycline Hyclate [Vibramycin] 100 mg PO BID 08/27/18 [History] Fluvoxamine Maleate 50 mg PO QPM 08/27/18 [History] Furosemide [Lasix] 40 mg PO QAM 08/27/18 [History] Icosapent Ethyl [Vascepa] 1 cap PO TID 08/27/18 [History] Levothyroxine Sodium 112 mcg PO QAM 08/27/18 [History] Meloxicam 7.5 mg PO QAM 08/27/18 [History] MetroNIDAZOLE [Metrocream] 1 applic TP BID 08/27/18 [History] Multivitamin [One Daily Essential] 1 each PO DAILY 08/27/18 [History] Mupirocin [Bactroban Oint] 1 applic TP TID 08/27/18 [History] Propranolol [Inderal] 20 mg PO BID 08/27/18 [History] Selenium Sulfide/Aloe Vera [Selsun Blue Moist 1% Shampoo] 1 appl TP AD 08/27/18 [History] cloZAPine [Clozaril] 12.5 mg PO BID 08/27/18 [History] clonazePAM [Clonazepam] 0.25 mg PO QAM 08/27/18 [History] clonazePAM [Clonazepam] 0.5 mg PO QPM 08/27/18 [History] Allergy/AdvReac Type Severity Reaction Status Date / Time betamethasone Allergy Hives Verified 04/20/17 20:35 [From Lotrisone] carbamazepine [From Tegretol] Allergy Hives Verified 04/20/17 20:35 chlorpromazine Allergy Hives Verified 04/20/17 20:35 [From Thorazine] clotrimazole [From Lotrisone] Allergy Hives Verified 04/20/17 20:35 Mesoridazine [From Serentil] Allergy Hives Verified 04/20/17 20:35 All Systems: The remainder of the systems were reviewed and are negative Physical Examination Vital Signs: Vital Signs, Last 4 Hours Resp Pulse Ox 09/01/18 15:30 12 99 Ventilator Settings Ventilator Settings: Ventilator Settings, Last 8 Hours Ventilator Tidal Volume 550 Setting Ventilator Tidal Volume 550 Setting Ventilator Respiratory Rate 10 Setting Positive End Expiratory 6 Pressure Results - Laboratory Findings CBC and BMP: 09/01/18 04:55 09/01/18 04:55 ABG ABG pH 7.29 pH Units (7.32-7.45) L 09/01/18 15:32 ABG pCO2 94 mmHg (35-45) H* 09/01/18 15:32 ABG pO2 104 mmHg (85-104) 09/01/18 15:32 ABG O2 Saturation 97 % (95-98) 09/01/18 15:32 PT/INR, D-dimer D-Dimer 561 ng/mLFEU (0-500) H 08/27/18 15:42 Abnormal lab findings: Abnormal lab results Plt Count 114 K/mcL (140-400) L 09/01/18 04:55 D-Dimer 561 ng/mLFEU (0-500) H 08/27/18 15:42 ABG pH 7.29 pH Units (7.32-7.45) L 09/01/18 15:32 ABG pCO2 94 mmHg (35-45) H* 09/01/18 15:32 ABG HCO3 46 mEq/L (21-27) H 09/01/18 15:32 ABG Total CO2 48 mEq/L (20-26) H 09/01/18 15:32 ABG Base Excess 14 mEq/L (-2 to 3) H 09/01/18 15:32 Carbon Dioxide 40 mEq/L (23-29) H* 09/01/18 04:55 Glucose 124 mg/dL (70-105) H 09/01/18 04:55 POC Glucose 101 mg/dL (70-99) H 08/30/18 12:18 Calculated Osmolality 304 (280-300) H 09/01/18 04:55 Calcium 8.5 mg/dL (8.6-10.3) L 09/01/18 04:55 AST 41 Units/L (13-39) H 08/31/18 08:06 Serum Total Protein 5.3 g/dL (6.4-8.9) L 08/31/18 08:06 Albumin 3.1 g/dL (3.5-5.7) L 08/31/18 08:06 Globulin 2.2 g/dL (2.4-3.5) L 08/31/18 08:06 Consult Discharge Plan - Plan Referrals: Timothy Jenkins MD [Primary Care Provider] - 09/14/18 2:00 pm (Please follow up as schedule...) - Attending Attestation I examined this patient and my medical decision-making was reviewed with the Resident Physician. I agree with the documented findings, disposition and treatment plan as described except to the extent set forth below. We independently had [id number] contact with the patient Patient seen and examined at bedside Labs, radiology, chart personally reviewed. Impression: Acute on chronic hypoxic hypercapnic respiratory failure Metabolic encephalopathy Acute on chronic metabolic alkalosis Developmental delay Recs: -Overall picture here is suspected alveolar hypoventilation secondary to encephalopathy. I suspect that overdiuresis is complicated her electrolyte derangements by worsening metabolic alkalosis and this is lead to worsening encephalopathy. -When I evaluated the patient she was very lethargic but easily rousable able to follow some commands he had worsening evidence of hypercapnia and recommended that the patient be transferred on an urgent basis to the ICU for further management as she had a high risk of further decline decompensation respiratory failure if on the general medical floor. -Patient was moved to the ICU where she was sat upright and to improve mechanical advantage for work of breathing. She was much more arousable and tidal volume was improved markedly on AVAPS mode of NIV she was currently breathing 16-20 times a minute and taking 700-900 mL tidal volume -I instructed the ICU nursing staff to give the patient's a 500 mL challenge of IV crystalloid to help mitigate the effects of contraction -Follow up metabolic panel and aggressive replacement of potassium and Cl- -Hold IRON CARRIER depressing medications overnight would keep nothing by mouth until respiratory status is less tenuous -Recommend repeat ABG in 1 hour to ensure that she has improvement in ventilation -Although she has high risk for further decline I do not see any indication for emergent intubation she will need to be monitored closely in the ICU -There is no clear evidence to me that the patient has congestive heart failure and I would caution against continued loop diuretic on a chronic basis -No clear evidence of infection continue to monitor if spikes fever would not recommend culturing patient -Patient should be qualified for noninvasive ventilation on this hospitalization which she can wear at night she will need outpatient formal polysomnogram as I have high suspicion for sleep-disordered breathing which is being complicated by obesity hypoventilation syndrome ICU team will see the patient in the morning <Leigha Hunt - Last Filed: 09/01/18 18:55> Date of Encounter: 09/01/18 Time of Encounter: 11:04 Assessment and Plan (1) Acute on chronic respiratory failure with hypoxia and hypercapnia Current Visit: Yes Status: Acute Acute on chronic respiratory failure with hypoxia and hypercarbia Etiology likely d/t alveolar hypoventilation in setting of worsened encephalopathy likely d/t acute on chronic metabolic alkalosis Initial SPO2 in ED 96% 2 L nasal cannula, became hypoxic (SPO2 87% on room air) and tachycardic (HR 120)--SPO2 improved to 94% on 3 L nasal cannula Less likely etiologies: infection/pneumonia or CHF exacerbation No leukocytosis (WBC today 6.2) and afebrile throughout admission 08/27 CXR: no airspace consolidation or pleural effusion 08/27 CTA chest: no acute PE; mild hypoaeration and atelectasis; no evidence for aspiration; mild cardiomegaly 08/29 ABG: pH 7.34/ pCO2 81 / pO2 61 / HCO3 43 (2L NC)--pCO2 did not correct with non-invasive PPV 09/01 ABG: pH 7.34 / PCO2 85 / PO2 84 / HCO3 46 (NiPPV) Overdiuresis (60mg furosemide daily) was contributing to metabolic alkalosis, diuresis on hold Plan: Close monitoring--at risk for worsening respiratory failure Avoid IRON CARRIER depressants overnight NPO for now Continue NiPPV at night while sleeping and when napping No clear indication for antibiotics Overnight sleep study to assess for evaluation of sleep disordered breathing (2) Metabolic alkalosis Current Visit: Yes Status: Acute Acute on chronic metabolic alkalosis--suspect due to over-diuresis with furosemide Plan: Continue holding furosemide/diuretics Recheck electrolytes in morning, replace as needed As above (3) Acute metabolic encephalopathy Current Visit: Yes Status: Acute Consider pharmacologic etiology--overdiuresis contributing to electrolyte imbalances, metabolic alkalosis At time of my exam, patient somnolent and minimally responsive to command, will open eyes BREASTFEEDING PROGRAM COORDINATOR in room reports when she saw patient earlier this morning, patient was alert and interactive Suspect acute metabolic encephalopathy contributing to her hypoventilation Plan: As above (4) Sleep-disordered breathing Current Visit: Yes Status: Suspected Suspected sleep-disordered breathing, further complicated by obesity hypoventilation syndrome Plan: Continue noninvasive positive pressure ventilation--at night while sleeping and during napping Recommend outpatient sleep study (5) Obesity hypoventilation syndrome Current Visit: Yes Status: Acute Contributing to sleep disordered breathing Plan: As above (6) Morbidly obese Current Visit: Yes Status: Acute (7) Restrictive airway disease Current Visit: Yes Status: Acute 2016 PFT: Spirometry shows moderate airway restrictive disease; lung volumes moderately reduced, restrictive flow volume loop Patient unable to complete all components ordered for PFT due patient's inability to comprehend instructions--tried multiple times Plan: Repeat PFTs once clinically improved, can be done outpatient with pulmonology follow-up History of Present Illness Consult date: 09/01/18 Reason for consult: dyspnea, other (hypoxemic and hypercarbic respiratory failure) Chief complaint: dyspnea History of present illness: Ms. Guzman is a 57-year-old female with past medical history of cognitive and developmental delays, bipolar, ? CHF, hypothyroidism, and hyperlipidemia who was brought to the ED, accompanied by caregivers, after the patient aspirated on pureed hamburger 90 minutes prior to arrival. Patient unable to provide any history at the time of my exam and the patient's caregivers were not present in the room, therefore much of her history was gathered from documentation this admission. Patient was very somnolent, not answering my questions, but opening eyes to command. Patient lives in a longterm. It was reported that patient tried to take breath while eating and accidentally aspirated--she did not cough anything up and appeared well afterwards. Caretakers reported the patient has history of frequent aspiration and it is the longterm's policy to have her examined anytime she has an aspiration event. On arrival, she was afebrile, vital signs were stable, and oxygenating 96% on 2 L nasal cannula--she did become hypoxic with reported SPO2 87% on room air and heart rate 120. She was given supplemental oxygen 2-5 L by nasal cannula until she was given non-invasive PPV, improving her SpO2 into 90s. CTA chest done to rule out possible foreign body and pulmonary embolism; no evidence was found for PE or foreign body. She does not use oxygen at home. She was admitted for further evaluation and management of her hypoxia and pulmonology was consulted because her hypoxia and hypercapnia not improved with NIPPV. Past Med Surg Social Fam HX - Past Medical History Medical history: hyperlipidemia, other, thyroid disease, CHF Additional medical history: Psychiatric history: previous psychiatric hospitalization, other, bipolar - Past Surgical History Surgical History: no surgical history Additional surgical history: - Social History Smoking Status: Never smoker Smokeless Tobacco Status: No Alcohol use: none Drug use: none ROS unobtainable: due to mental status All Systems: The remainder of the systems were reviewed and are negative Physical Examination General appearance: asleep (Opens eyes to command, quickly falls asleep again), other (Somnolent) Eyes: nonicteric ENT: oropharynx dry Neck: supple Effort: mildly labored Auscultation: bilateral: wheezes (Anterior), other (Difficult to auscultate--pa tient unable to cooperate) Cardiovascular: regular rate and rhythm Gastrointestinal: normoactive bowel sounds, soft, non-tender Integumentary: normal Extremities: no cyanosis, pink and warm, pulses normal, edema (Bilateral, trace 1+ pitting edema) unable to assess due to mental status Ventilator Settings Ventilator Settings: Ventilator Settings, Last 8 Hours Ventilator Tidal Volume 550 Setting Results - Laboratory Findings CBC and BMP: 09/01/18 04:55 09/01/18 04:55 ABG ABG pH 7.34 pH Units (7.32-7.45) 09/01/18 10:19 ABG pCO2 85 mmHg (35-45) H* 09/01/18 10:19 ABG pO2 84 mmHg (85-104) L 09/01/18 10:19 ABG O2 Saturation 95 % (95-98) 09/01/18 10:19 PT/INR, D-dimer D-Dimer 561 ng/mLFEU (0-500) H 08/27/18 15:42 Abnormal lab findings: Abnormal lab results Plt Count 114 K/mcL (140-400) L 09/01/18 04:55 D-Dimer 561 ng/mLFEU (0-500) H 08/27/18 15:42 ABG pCO2 85 mmHg (35-45) H* 09/01/18 10:19 ABG pO2 84 mmHg (85-104) L 09/01/18 10:19 ABG HCO3 46 mEq/L (21-27) H 09/01/18 10:19 ABG Total CO2 48 mEq/L (20-26) H 09/01/18 10:19 ABG Base Excess 15 mEq/L (-2 to 3) H 09/01/18 10:19 Carbon Dioxide 40 mEq/L (23-29) H* 09/01/18 04:55 Glucose 124 mg/dL (70-105) H 09/01/18 04:55 POC Glucose 101 mg/dL (70-99) H 08/30/18 12:18 Calculated Osmolality 304 (280-300) H 09/01/18 04:55 Calcium 8.5 mg/dL (8.6-10.3) L 09/01/18 04:55 AST 41 Units/L (13-39) H 08/31/18 08:06 Serum Total Protein 5.3 g/dL (6.4-8.9) L 08/31/18 08:06 Albumin 3.1 g/dL (3.5-5.7) L 08/31/18 08:06 Globulin 2.2 g/dL (2.4-3.5) L 08/31/18 08:06 - Clinical Findings Intake & Output: Intake & Output 08/31/18 09/01/18 09/01/18 23:59 07:59 15:59 Weight 125 kg
--- NOTE | 2018-09-01 12:01 | Internal Med Progress Note ---
Hospitalist Progress Note - Encounter Date of Encounter: 09/01/18 Time of Encounter: 11:59 - Subjective Interval History: patient was seen and examined at bedside. drowsy , less verbal than yesterday. drowsy, cannot provide much history - Exam Vitals: Temp Pulse Resp BP Pulse Ox 98.0 F 73 18 108/68 98 09/01/18 11:55 09/01/18 11:55 09/01/18 11:55 09/01/18 11:55 09/01/18 11:55 Exam: General: Patient is drowsy, laying supine morbidly obese, poor hygeine Head: atraumatic, normocephalic, on bipap Eye: anicterus, ENT: mucous membranes moist, normal external ear exam Neck: normal inspection, trachea midline, full ROM, no carotid bruits Chest: normal inspection, symmetric chest rise Respiratory: Good respiratory effort. decreased breath sounds secondary to body habitus did not appreciate wheezing or crackles Cardiovascular: distant heart souds secondary to body habitus, Regular rate and rhythm. s1 and s2 No clicks, rubs, gallops, or murmors. Abdomen: Bowel sounds present normoactive x-4 quadrants. Abdomen is soft, nondistended. no Epigastric tenderness. No guarding or rebound. No organomegaly noted, obese musculoskeletal: Spontaneously moving all extremities. no edema, no calf tenderness Skin: warm, dry, intact. Neuro: Alert and oriented x1 , more drowsy today, responds to maximal pain ( ABG needle), however less verbal - Assessment and Plan (1) Acute respiratory failure with hypoxia and hypercapnia Current Visit: Yes Status: Acute Assessment and Plan: ABG on 09/01- 7.34 on biap changed settings to 16/6 most likely have underlying REJI was on lasix 60 mg daily- no history of heart disease ( echo reviewed) - stopped lasix as her bicarb on bmp is continuing to rise most likely secondary to lasix and hypercapnia continue bipap ABG in 2 hrs at 2pm pulmonology consulted as hypercapnia is persistent overnight pulse ox for bipap on home oxygen will need OP PFTs and Sleep study EHOB, aspiration precautions will keep NPO low threshold for intubation CXR: 08/30/18 IMPRESSION: Resolved previously present right lower lobe opacity, favored to be due to atelectasis, less likely pneumonia. No acute cardiopulmonary disease. CTA: 08/27/18 IMPRESSION: 1. No acute pulmonary emboli. 2. Mild hypoaeration and atelectasis with no evidence of aspiration pneumonitis. No effusion or pneumothorax. 3. Mild cardiomegaly with no acute mediastinal abnormality. 4. Severe hepatic steatosis. PFTs in 2017- Spirometry shows moderate airway restrictive disease. Lung Volumes are moderately reduced. Flow Volume Loop: Restrictive. (2) Acute metabolic encephalopathy Current Visit: Yes Status: Acute Assessment and Plan: most likely secondary to hypercapnia nursing staff instructed to hold benzodiazepines for now continue Bipap repeat ABg At 2 Pm pulmonology consulted NPO for now strict Aspiration precautions elevate head of bed CT head STAT to rule out acute intracranial pathology (3) Restrictive airway disease Current Visit: Yes Status: Acute Assessment and Plan: diagnosed on PFT in 2017 Duoneb, bipap and oxygen PFT 2017- Spirometry shows moderate airway restrictive disease. Lung Volumes are moderately reduced. Flow Volume Loop: Restrictive. (4) Developmental delay, severe Current Visit: Yes Status: Acute Assessment and Plan: associated with behavioral disturbancce requires assistance with ADLs . continue home medications PT/ rehab (5) Dysphagia Current Visit: Yes Status: Acute Assessment and Plan: pureed textures and pudding thick liquids strict aspiration precautions keep HOB Elevated (6) Hyperlipidemia Current Visit: Yes Status: Acute Assessment and Plan: continue statins (7) Morbidly obese Current Visit: Yes Status: Acute Assessment and Plan: nutrition consult BMI 43.9 (8) Hypothyroidism Current Visit: Yes Status: Acute Assessment and Plan: continue home dose synthroid TSH in AM (9) DVT prophylaxis Current Visit: Yes Status: Acute Assessment and Plan: heparin sc - Time Spent with Patient Total time spent is greater than 50% in coordination of care (as documented) at patient's floor/unit and/or counseling patient: Internal Medicine: Result - Labs CBC & Chem 7: 09/01/18 04:55 09/01/18 04:55 Labs: Short CBC 09/01/18 Range/Units 04:55 WBC 6.2 (4.3-11.1) K/mcL Hgb 13.4 (11.5-15.4) g/dL Hct 41.8 (35.3-44.9) % Plt Count 114 L (140-400) K/mcL BMP 09/01/18 04:55 Sodium 145 Potassium 3.7 Chloride 100 Carbon Dioxide 40 H* BUN 19 Creatinine 0.72 Glucose 124 H Calcium 8.5 L - ABG Interpretation ABG results: ABG ABG pH 7.34 pH Units (7.32-7.45) 09/01/18 10:19 ABG pCO2 85 mmHg (35-45) H* 09/01/18 10:19 ABG pO2 84 mmHg (85-104) L 09/01/18 10:19 ABG O2 Saturation 95 % (95-98) 09/01/18 10:19 PT/INR, D-dimer D-Dimer 561 ng/mLFEU (0-500) H 08/27/18 15:42 Consult Discharge Plan - Plan Referrals: Timothy Jenkins MD [Primary Care Provider] - 09/14/18 2:00 pm (Please follow up as schedule...) (5) Dysphagia Qualifiers: Dysphagia type: oropharyngeal phase Qualified Code(s): R13.12 - Dysphagia, oropharyngeal phase (6) Hyperlipidemia Qualifiers: Hyperlipidemia type: unspecified Qualified Code(s): E78.5 - Hyperlipidemia, unspecified (8) Hypothyroidism Qualifiers: Hypothyroidism type: acquired Qualified Code(s): E03.9 - Hypothyroidism, unspecified
[2018-09-01 15:49] LABS: ABG Base Excess 14 mEq/L (-2 to 3); ABG HCO3 46 mEq/L (21-27); ABG Oxygen Saturation 97 % (95-98); ABG PCO2 94 mmHg (35-45); ABG PH 7.29 pH Units (7.32-7.45); ABG PO2 104 mmHg (85-104); ABG TCO2 48 mEq/L (20-26); Blood Gas PEEP 6 cm H2O; Blood Gas Respiration Rate 10; Blood Gas VT 550 cc
[2018-09-01] MEDS ORDERED: Ringers Solution, Lactated 500 ML IVC ONE (16:18)
[2018-09-01] MEDS ORDERED: Ringers Solution, Lactated 500 ML ONE (16:19)
[2018-09-01] MEDS ORDERED: Bismuth Subsalicylate 120 ML ORAL SUSPENSION PO PRN (19:27)
[2018-09-01] MEDS ORDERED: Ipratropium/Albuterol Neb 3 ML ONE (19:41)
[2018-09-01] MEDS: Divalproex (24 HR) 500 MG TABLET PO SCH (20:16)
[2018-09-02] MEDS: Ipratropium/Albuterol Neb 3 ML IH SCH ×6 (04:05→23:14)
[2018-09-02] MEDS ORDERED: *HR* Heparin 5,000 UNIT/ML VIAL SQ SCH (06:00)
--- NOTE | 2018-09-02 07:04 | Pulmonology Progress Note ---
<Gray Wright - Last Filed: 09/02/18 16:13> Date of Encounter: 09/02/18 Time of Encounter: 09:30 Assessment and Plan (1) Acute respiratory failure with hypoxia and hypercapnia Current Visit: Yes Status: Acute originally admitted after choking on pureed hamburger Went into acute respiratory failure on 09/01 requiring BiPAP Was on Lasix prior to admission without hx of heart disease Improved clinically this morning Repeat ABG on 2 lpm O2 via nasal cannula: pH 7.38, pCO2 69, and HCO3 41 Likely chronic CO2 retainer Possibly has underlying REJI - review of records reveals has required o2 at night in the past Does have hx of choking/aspiration based on chart review Speech therapy consulted - recommended thick liquids Stable for transfer to telemetry bed. Spoke with Dr. French who accepted pt. O2 overnight qualification UOP adequate at 650mL yesterday Diet per speech therapy recommendations Continue PT/OT Continue to hold Lasix (2) At risk for aspiration Current Visit: Yes Status: Acute plan as above (3) Sleep-disordered breathing Current Visit: Yes Status: Suspected plan as above (4) Morbidly obese Current Visit: Yes Status: Acute chronic issue (5) DVT prophylaxis Current Visit: Yes Status: Acute SQ Heparin Subjective Principal diagnosis: Acute on chronic hypoxic and hypercapnic respiratory fa ilure Interval history: Pt seen and examined at bedside. Pt currently on BiPAP resting comfortably. Responds to voice and follows commands, but not speaking at this time. Objective PUL Vital signs: Last Vital Signs Temp 98.5 F 09/02/18 00:00 Pulse 77 09/02/18 06:04 Resp 18 09/02/18 06:04 BP 101/61 09/02/18 06:04 Pulse Ox 98 09/02/18 06:04 General appearance: asleep, appears uncomfortable Eyes: nonicteric ENT: oropharynx dry Neck: supple Effort: mildly labored Auscultation: bilateral: diminished breath sounds Percussion: bilateral: not dull Cardiovascular: regular rate and rhythm Gastrointestinal: soft, non-tender Integumentary: normal Extremities: no cyanosis, no clubbing, pink and warm, pulses normal Musculoskeletal: no deformities normal mental status, non-focal exam, pupils equal and round affect normal Results - Laboratory Findings CBC and BMP: 09/02/18 06:46 09/02/18 06:46 ABG ABG pH 7.29 pH Units (7.32-7.45) L 09/01/18 15:32 ABG pCO2 94 mmHg (35-45) H* 09/01/18 15:32 ABG pO2 104 mmHg (85-104) 09/01/18 15:32 ABG O2 Saturation 97 % (95-98) 09/01/18 15:32 PT/INR, D-dimer D-Dimer 561 ng/mLFEU (0-500) H 08/27/18 15:42 Abnormal lab findings: Abnormal lab results Plt Count 114 K/mcL (140-400) L 09/01/18 04:55 D-Dimer 561 ng/mLFEU (0-500) H 08/27/18 15:42 ABG pH 7.29 pH Units (7.32-7.45) L 09/01/18 15:32 ABG pCO2 94 mmHg (35-45) H* 09/01/18 15:32 ABG HCO3 46 mEq/L (21-27) H 09/01/18 15:32 ABG Total CO2 48 mEq/L (20-26) H 09/01/18 15:32 ABG Base Excess 14 mEq/L (-2 to 3) H 09/01/18 15:32 Carbon Dioxide 40 mEq/L (23-29) H* 09/01/18 04:55 Glucose 124 mg/dL (70-105) H 09/01/18 04:55 POC Glucose 101 mg/dL (70-99) H 08/30/18 12:18 Calculated Osmolality 304 (280-300) H 09/01/18 04:55 Calcium 8.5 mg/dL (8.6-10.3) L 09/01/18 04:55 AST 41 Units/L (13-39) H 08/31/18 08:06 Serum Total Protein 5.3 g/dL (6.4-8.9) L 08/31/18 08:06 Albumin 3.1 g/dL (3.5-5.7) L 08/31/18 08:06 Globulin 2.2 g/dL (2.4-3.5) L 08/31/18 08:06 - Clinical Findings Intake & Output: Intake & Output 09/01/18 09/01/18 09/02/18 15:59 23:59 07:59 Output Total 650 / 650 100 / 100 Balance -650 / -650 -100 / -100 Weight 127.1 kg Consult Discharge Plan - Plan Referrals: Timothy Jenkins MD [Primary Care Provider] - 09/14/18 2:00 pm (Please follow up as schedule...) <Justus Martin - Last Filed: 09/02/18 16:40> Date of Encounter: 09/02/18 Objective PUL Vital signs: Last Vital Signs Temp 98.0 F 09/02/18 16:00 Pulse 77 09/02/18 16:00 Resp 16 09/02/18 16:05 BP 105/68 09/02/18 16:00 Pulse Ox 95 09/02/18 16:05 Results - Laboratory Findings CBC and BMP: 09/02/18 06:46 09/02/18 06:46 ABG ABG pH 7.38 pH Units (7.32-7.45) 09/02/18 08:25 ABG pCO2 69 mmHg (35-45) H 09/02/18 08:25 ABG pO2 60 mmHg (85-104) L 09/02/18 08:25 ABG O2 Saturation 88 % (95-98) L 09/02/18 08:25 PT/INR, D-dimer D-Dimer 561 ng/mLFEU (0-500) H 08/27/18 15:42 Abnormal lab findings: Abnormal lab results Plt Count 118 K/mcL (140-400) L 09/02/18 06:46 D-Dimer 561 ng/mLFEU (0-500) H 08/27/18 15:42 ABG pCO2 69 mmHg (35-45) H 09/02/18 08:25 ABG pO2 60 mmHg (85-104) L 09/02/18 08:25 ABG HCO3 41 mEq/L (21-27) H 09/02/18 08:25 ABG Total CO2 43 mEq/L (20-26) H 09/02/18 08:25 ABG O2 Saturation 88 % (95-98) L 09/02/18 08:25 ABG Base Excess 12 mEq/L (-2 to 3) H 09/02/18 08:25 Carbon Dioxide 38 mEq/L (23-29) H 09/02/18 06:46 BUN/Creatinine Ratio 32 (6-26) H 09/02/18 06:46 POC Glucose 101 mg/dL (70-99) H 08/30/18 12:18 Venous Ioniz Calcium 1.10 mmol/L (1.15-1.35) L 09/02/18 06:57 AST 49 Units/L (13-39) H 09/02/18 06:46 Serum Total Protein 5.3 g/dL (6.4-8.9) L 09/02/18 06:46 Albumin 3.1 g/dL (3.5-5.7) L 09/02/18 06:46 Globulin 2.2 g/dL (2.4-3.5) L 09/02/18 06:46 - Clinical Findings Intake & Output: Intake & Output 09/02/18 09/02/18 09/02/18 07:59 15:59 23:59 Intake Total 400 / 400 500 / 500 Output Total 100 / 100 250 / 250 200 / 200 Balance -100 / -100 150 / 150 300 / 300 Weight 127.1 kg - Attending Attestation I examined this patient and my medical decision-making was reviewed with the Resident Physician. I agree with the documented findings, disposition and treatment plan as described except to the extent set forth below. Patient seen and examined. Labs, radiology, chart personally reviewed. Agree with resident's history and physical, assessment, plan with following com ments: RO[employer]: Patient follows commands, Pulmonary: Acceptable oxygenation and ventilation and patient ABG is most suggestive of chronic respiratory failure might be an element of acute failure with hypercapnia which is compensated and I believe this is multifactorial from diuresis as well as using noninvasive ventilation. As long as pH is compensated and patient is awake enough and responsive then can be monitored regarding his of level of PCO2 and it can be treated only in clinical context. Treatment for aspiration is reasonable. Patient remain stable enough to be transferred back to the floor. Incentive spirometry as well as and immobilization is on was recommended to induce patients. Noninvasive ventilation will be helpful for this patient and to check on the qualification. Cardiovascular: stable GI: Nutrition per dietary and GI prophylaxis per routine Heme: DVT prophylaxis per routine ID: Continue antibiotics and plan to de-escalation Renal; urine out put and renal funtion reviewed Endorcine: blood glucose is monitored Lines: all lines checked and no evidence of infections Skin: skin care to prevent pressure ulcers per nursing routine care Pulmonary will follow-up when patient is transferred to the floor.
[2018-09-02 07:18] LABS: Alanine Aminotransferase 44 Units/L (7-52); Albumin 3.1 g/dL (3.5-5.7); Albumin/Globulin Ratio 1.4 (1.1-2.2); Alkaline Phosphatase 87 Units/L (34-104); Aspartate Amino Transferase 49 Units/L (13-39); BUN/Creatinine Ratio 32 (6-26); Bilirubin,Total 0.4 mg/dL (0.3-1.0); Blood Urea Nitrogen 20 mg/dL (6-20); Calcium 8.6 mg/dL (8.6-10.3); Carbon Dioxide 38 mEq/L (23-29); Chloride 101 mEq/L (98-107); Globulin 2.2 g/dL (2.4-3.5); Glucose 97 mg/dL (70-105); Osmolality,Calculated 297 (280-300); Phosphorous 3.2 mg/dL (2.7-4.5); Potassium 3.9 mEq/L (3.5-5.1); Sodium 142 mEq/L (136-145); Total Protein 5.3 g/dL (6.4-8.9); eGFR For Non-African Americans > 60 (> 60)
[2018-09-02 08:28] LABS: Basophils % 0.4 %; Eosinophils # 0.2 K/mcL (0.0-0.6); Eosinophils % 3.5 %; Hematocrit 41.7 % (35.3-44.9); Hemoglobin 13.5 g/dL (11.5-15.4); Immature Granulocytes % 0.4 % (0-4); Lymphocytes # 2.4 K/mcL (0.6-4.6); Lymphocytes % 42.7 %; Mean Corpuscular HGB Conc 32.4 g/dL (31.6-35.5); Mean Corpuscular Hemoglobin 29.6 pg (28.0-33.3); Mean Corpuscular Volume 91.4 fL (83.0-100.0); Mean Platelet Volume 10.4 fL (9.4-12.4); Monocytes # 0.8 K/mcL (0.0-1.3); Monocytes % 13.3 %; Neutrophils # 2.3 K/mcL (1.6-8.9); Platelet Count 118 K/mcL (140-400); Red Blood Count 4.56 M/mcL (3.82-4.97); Segmented Neutrophils % 39.7 %
[2018-09-02 08:29] LABS: ABG Base Excess 12 mEq/L (-2 to 3); ABG HCO3 41 mEq/L (21-27); ABG Oxygen Saturation 88 % (95-98); ABG PCO2 69 mmHg (35-45); ABG PH 7.38 pH Units (7.32-7.45); ABG PO2 60 mmHg (85-104); ABG TCO2 43 mEq/L (20-26)
[2018-09-02] MEDS ORDERED: Aspirin 81 MG TAB.CHEW PO SCH (09:00)
[2018-09-02] MEDS ORDERED: clonazePAM 0.5 MG TABLET PO SCH ×2 (09:00→18:00)
[2018-09-02] MEDS ORDERED: Loratadine 10 MG TABLET PO SCH (09:00)
[2018-09-02] MEDS: Divalproex (24 HR) 500 MG TABLET PO SCH ×2 (09:44→20:47)
[2018-09-02] MEDS: cloZAPine 25 MG TABLET PO SCH ×2 (09:46→20:47)
[2018-09-02] MEDS ORDERED: METRONIDAZOLE TP SCH ×2 (13:30→21:00)
[2018-09-02] MEDS ORDERED: Bismuth Subsalicylate 120 ML ORAL SUSPENSION PO PRN (17:49)
[2018-09-02] MEDS: *HR* Heparin 5,000 UNIT/ML VIAL SQ SCH (20:57)
[2018-09-03] MEDS: Ipratropium/Albuterol Neb 3 ML IH SCH ×4 (04:04→16:06)
[2018-09-03] MEDS: *HR* Heparin 5,000 UNIT/ML VIAL SQ SCH ×2 (05:52→17:17)
[2018-09-03 06:11] LABS: Basophils % 0.4 %; Eosinophils # 0.2 K/mcL (0.0-0.6); Hematocrit 40.6 % (35.3-44.9); Hemoglobin 13.5 g/dL (11.5-15.4); Immature Granulocytes % 0.3 % (0-4); Lymphocytes # 3.4 K/mcL (0.6-4.6); Lymphocytes % 49.3 %; Mean Corpuscular HGB Conc 33.3 g/dL (31.6-35.5); Mean Corpuscular Hemoglobin 29.7 pg (28.0-33.3); Mean Corpuscular Volume 89.4 fL (83.0-100.0); Mean Platelet Volume 9.8 fL (9.4-12.4); Monocytes # 1.1 K/mcL (0.0-1.3); Monocytes % 16.3 %; Neutrophils # 2.1 K/mcL (1.6-8.9); Platelet Count 131 K/mcL (140-400); Red Blood Count 4.54 M/mcL (3.82-4.97); Red Cell Distribution Width 12.2 % (11.5-14.5); Segmented Neutrophils % 30.7 %
[2018-09-03 08:26] LABS: Alanine Aminotransferase 43 Units/L (7-52); Albumin 3.3 g/dL (3.5-5.7); Albumin/Globulin Ratio 1.4 (1.1-2.2); Alkaline Phosphatase 93 Units/L (34-104); Aspartate Amino Transferase 43 Units/L (13-39); BUN/Creatinine Ratio 26 (6-26); Bilirubin,Total 0.4 mg/dL (0.3-1.0); Blood Urea Nitrogen 19 mg/dL (6-20); Calcium 8.7 mg/dL (8.6-10.3); Carbon Dioxide 33 mEq/L (23-29); Chloride 102 mEq/L (98-107); Globulin 2.3 g/dL (2.4-3.5); Glucose 109 mg/dL (70-105); Osmolality,Calculated 295 (280-300); Phosphorous 3.9 mg/dL (2.7-4.5); Potassium 4.1 mEq/L (3.5-5.1); Sodium 141 mEq/L (136-145); Total Protein 5.6 g/dL (6.4-8.9); eGFR For Non-African Americans > 60 (> 60)
--- NOTE | 2018-09-03 08:31 | Pulmonology Progress Note ---
<Leigha Hunt - Last Filed: 09/03/18 10:08> Date of Encounter: 09/03/18 Time of Encounter: 08:31 Assessment and Plan (1) Acute on chronic respiratory failure with hypoxia and hypercapnia Current Visit: Yes Status: Acute Acute respiratory failure and hypercapnia are improving Etiology likely d/t alveolar hypoventilation in setting of worsened encephalopathy likely d/t acute on chronic metabolic alkalosis Overdiuresis (60mg furosemide daily) was contributing to metabolic alkalosis--diuretics held Infection/pneumonia, CHF exacerbation, PE unlikely No leukocytosis and afebrile throughout admission 08/27 CXR: no airspace consolidation or pleural effusion 08/27 CTA chest: no acute PE; mild hypoaeration and atelectasis; no evidence for aspiration Speech therapy swallow eval--no overt signs/symptoms of aspiration, rec pudding thickened liquids and pureed textures Overnight oxygen study performed-- Plan: Diet per speech therapy recommendations Outpatient sleep study to assess for evaluation of sleep disordered breathing (2) Metabolic alkalosis Current Visit: Yes Status: Acute Acute worsening of chronic metabolic alkalosis likely d/t over-diuresis with la six Lasix has been discontinued (3) Acute metabolic encephalopathy Current Visit: Yes Status: Acute Improved (4) Sleep-disordered breathing Current Visit: Yes Status: Suspected Suspected sleep-disordered breathing, further complicated by obesity hypoventilation syndrome Plan: Continue noninvasive positive pressure ventilation--at night while sleeping and during napping Recommend outpatient sleep study (5) Obesity hypoventilation syndrome Current Visit: Yes Status: Acute Contributing to sleep disordered breathing Plan: As above (6) Morbidly obese Current Visit: Yes Status: Acute (7) Restrictive airway disease Current Visit: Yes Status: Acute 2017 PFT: Spirometry shows moderate airway restrictive disease; lung volumes moderately reduced, restrictive flow volume loop Patient unable to complete all components ordered for PFT due patient's inability to comprehend instructions--tried multiple times Plan: Consider repeating PFTs once clinically improved Subjective Principal diagnosis: Acute on chronic hypoxic and hypercapnic respiratory failure Interval history: Seen and examined this morning at bedside. She is alert and responds to questions. She appears to be breathing comfortably on 3 liters nasal cannula. She denies any pain, wheezing, coughing, sputum production, shortness of breath, difficult breathing, or fevers/chills. She has no complaints at this time. Objective PUL Vital signs: Last Vital Signs Temp 98.2 F 09/03/18 06:39 Pulse 80 09/03/18 06:39 Resp 16 09/03/18 07:26 BP 107/68 09/03/18 06:39 Pulse Ox 92 09/03/18 07:26 General appearance: no acute distress, alert Eyes: nonicteric ENT: oropharynx moist Neck: supple Effort: normal Auscultation: bilateral: diminished breath sounds, wheezes (scattered) Cardiovascular: regular rate and rhythm Gastrointestinal: normoactive bowel sounds, soft, non-tender, non-distended Integumentary: normal Extremities: no cyanosis, no edema, no clubbing, pink and warm, pulses normal non-focal exam, pupils equal and round, CN II-XII normal, other (mental status improved) Results - Laboratory Findings CBC and BMP: 09/03/18 05:51 09/03/18 07:36 ABG ABG pH 7.38 pH Units (7.32-7.45) 09/02/18 08:25 ABG pCO2 69 mmHg (35-45) H 09/02/18 08:25 ABG pO2 60 mmHg (85-104) L 09/02/18 08:25 ABG O2 Saturation 88 % (95-98) L 09/02/18 08:25 PT/INR, D-dimer D-Dimer 561 ng/mLFEU (0-500) H 08/27/18 15:42 Abnormal lab findings: Abnormal lab results Plt Count 131 K/mcL (140-400) L 09/03/18 05:51 D-Dimer 561 ng/mLFEU (0-500) H 08/27/18 15:42 ABG pCO2 69 mmHg (35-45) H 09/02/18 08:25 ABG pO2 60 mmHg (85-104) L 09/02/18 08:25 ABG HCO3 41 mEq/L (21-27) H 09/02/18 08:25 ABG Total CO2 43 mEq/L (20-26) H 09/02/18 08:25 ABG O2 Saturation 88 % (95-98) L 09/02/18 08:25 ABG Base Excess 12 mEq/L (-2 to 3) H 09/02/18 08:25 Carbon Dioxide 33 mEq/L (23-29) H 09/03/18 07:36 Glucose 109 mg/dL (70-105) H 09/03/18 07:36 POC Glucose 101 mg/dL (70-99) H 08/30/18 12:18 Venous Ioniz Calcium 1.10 mmol/L (1.15-1.35) L 09/02/18 06:57 AST 43 Units/L (13-39) H 09/03/18 07:36 Serum Total Protein 5.6 g/dL (6.4-8.9) L 09/03/18 07:36 Albumin 3.3 g/dL (3.5-5.7) L 09/03/18 07:36 Globulin 2.3 g/dL (2.4-3.5) L 09/03/18 07:36 - Clinical Findings Intake & Output: Intake & Output 09/02/18 09/03/18 09/03/18 23:59 07:59 15:59 Intake Total 500 / 500 Output Total 200 / 200 Balance 300 / 300 Weight 129.3 kg Consult Discharge Plan - Plan Referrals: Timothy Jenkins MD [Primary Care Provider] - 09/14/18 2:00 pm (Please follow up as schedule...) <Abbe Del Rio W - Last Filed: 09/03/18 14:00> Date of Encounter: 09/03/18 Objective PUL Vital signs: Last Vital Signs Temp 98.6 F 09/03/18 11:18 Pulse 86 09/03/18 11:18 Resp 16 09/03/18 11:18 BP 100/65 09/03/18 11:18 Pulse Ox 90 09/03/18 11:18 Results - Laboratory Findings CBC and BMP: 09/03/18 05:51 09/03/18 07:36 ABG ABG pH 7.38 pH Units (7.32-7.45) 09/02/18 08:25 ABG pCO2 69 mmHg (35-45) H 09/02/18 08:25 ABG pO2 60 mmHg (85-104) L 09/02/18 08:25 ABG O2 Saturation 88 % (95-98) L 09/02/18 08:25 PT/INR, D-dimer D-Dimer 561 ng/mLFEU (0-500) H 11/09/18 15:42 Abnormal lab findings: Abnormal lab results Plt Count 131 K/mcL (140-400) L 09/03/18 05:51 D-Dimer 561 ng/mLFEU (0-500) H 08/27/18 15:42 ABG pCO2 69 mmHg (35-45) H 09/02/18 08:25 ABG pO2 60 mmHg (85-104) L 09/02/18 08:25 ABG HCO3 41 mEq/L (21-27) H 09/02/18 08:25 ABG Total CO2 43 mEq/L (20-26) H 09/02/18 08:25 ABG O2 Saturation 88 % (95-98) L 09/02/18 08:25 ABG Base Excess 12 mEq/L (-2 to 3) H 09/02/18 08:25 Carbon Dioxide 33 mEq/L (23-29) H 09/03/18 07:36 Glucose 109 mg/dL (70-105) H 09/03/18 07:36 POC Glucose 101 mg/dL (70-99) H 08/30/18 12:18 Venous Ioniz Calcium 1.10 mmol/L (1.15-1.35) L 09/02/18 06:57 AST 43 Units/L (13-39) H 09/03/18 07:36 Serum Total Protein 5.6 g/dL (6.4-8.9) L 09/03/18 07:36 Albumin 3.3 g/dL (3.5-5.7) L 09/03/18 07:36 Globulin 2.3 g/dL (2.4-3.5) L 09/03/18 07:36 - Clinical Findings Intake & Output: Intake & Output 09/02/18 09/03/18 09/03/18 23:59 07:59 15:59 Intake Total 500 / 500 140 / 140 Output Total 200 / 200 650 / 650 Balance 300 / 300 -510 / -510 Weight 129.3 kg - Attending Attestation I examined this patient and my medical decision-making was reviewed with the Resident Physician. I agree with the documented findings, disposition and treatment plan as described except to the extent set forth below. We independently had [id number] contact with the patient Patient seen and examined at bedside Labs, radiology, chart personally reviewed. Impression: Acute on chronic hypoxic hypercapnic respiratory failure Sleep disorder breathing Recs: Continue supplemental oxygen to keep saturation greater than 88% Cont NIV at night (01/04) Patient has qualified. [employer] depressant medications as able Caution against aggressive diuresis in this patient with dubious diagnosis of CHF Qualification for noninvasive ventilation while in the hospital Outpatient pulmonary follow-up Continue aspiration diet Pulmonary will sign off please call with questions
[2018-09-03] MEDS: Divalproex (24 HR) 500 MG TABLET PO SCH (08:47)
[2018-09-03] MEDS: cloZAPine 25 MG TABLET PO SCH (08:48)
[2018-09-03] MEDS ORDERED: Loratadine 10 MG TABLET PO SCH (09:00)
[2018-09-03] MEDS ORDERED: Aspirin 81 MG TAB.CHEW PO SCH (09:00)
--- NOTE | 2018-09-03 14:11 | Discharge Summary ---
<Jolly Armijo - Last Filed: 09/03/18 15:54> Date of Encounter: 09/03/18 Time of Encounter: 15:42 - Discharge Diagnosis (1) Dysphagia Status: Acute Qualifiers: Dysphagia type: oropharyngeal phase Qualified Code(s): R13.12 - Dysphagia, oropharyngeal phase (2) Acute respiratory failure with hypoxia and hypercapnia Status: Acute (3) DVT prophylaxis Status: Acute (4) Hyperlipidemia Status: Acute Qualifiers: Hyperlipidemia type: unspecified Qualified Code(s): E78.5 - Hyperlipidemia, unspecified (5) Morbidly obese Status: Acute (6) Hypothyroidism Status: Acute Qualifiers: Hypothyroidism type: acquired Qualified Code(s): E03.9 - Hypothyroidism, unspecified (7) Developmental delay, severe Status: Acute (8) Restrictive airway disease Status: Acute (9) Acute metabolic encephalopathy Status: Acute Hospital course: Ms. Guzman is a 57 year old female - Time Spent with Patient Total time spent providing and/or coordinating discharge services: Less than 30 minutes (10 min) - Discharge Medications Home Medications: Aspirin Enteric Coated [Aspirin EC] 81 mg PO DAILY 06/11/16 [History] Bismuth Subsalicylate [PEPTO-BISMOL (262mg/15mL) Susp] 15 ml PO Q4H PRN 06/11/16 [History] Calcium Carbonate/Vitamin D3 [Oyster Shell Calcium-Vit D Tab] 1 tab PO DAILY 06/11/16 [History] Cholecalciferol (D-3) [Vitamin D] 1,000 unit PO DAILY 06/11/16 [History] Furosemide [Lasix] 20 mg PO QPM 06/11/16 [History] GuaiFENesin/Dextromethorphan [Tussin Dm Syrup] 5 ml PO Q4H PRN 06/11/16 [History] Ibuprofen [Motrin] 600 mg PO BID PRN 06/11/16 [History] Latanoprost [Xalatan] 1 drop RIGHT EYE HS 06/11/16 [History] Loperamide HCl [Imodium A-D] 2 mg PO AD PRN 06/11/16 [History] Loratadine [Claritin] 10 mg PO DAILY 06/11/16 [History] Reagan/Poly/Geovany OINT [Triple Antibiotic Ointment] 1 appl TP TID PRN 06/11/16 [History] Divalproex Sodium [Depakote] 500 mg PO BID 09/03/16 [History] Acetaminophen [Tylenol] 500 mg PO Q6HR PRN 08/27/18 [History] Atorvastatin [Lipitor] 40 mg PO QPM 08/27/18 [History] Benztropine [Cogentin] 1 mg PO BID 08/27/18 [History] Fluvoxamine Maleate 50 mg PO QPM 08/27/18 [History] Furosemide [Lasix] 40 mg PO QAM 08/27/18 [History] Icosapent Ethyl [Vascepa] 1 cap PO TID 08/27/18 [History] Levothyroxine Sodium 112 mcg PO QAM 08/27/18 [History] Meloxicam 7.5 mg PO QAM 08/27/18 [History] Multivitamin [One Daily Essential] 1 each PO DAILY 08/27/18 [History] Mupirocin [Bactroban Oint] 1 applic TP TID 08/27/18 [History] Propranolol [Inderal] 20 mg PO BID 08/27/18 [History] Selenium Sulfide/Aloe Vera [Selsun Blue Moist 1% Shampoo] 1 appl TP AD 08/27/18 [History] cloZAPine [Clozaril] 12.5 mg PO BID 08/27/18 [History] clonazePAM [Clonazepam] 0.25 mg PO QAM 08/27/18 [History] clonazePAM [Clonazepam] 0.5 mg PO QPM 08/27/18 [History] Ipratropium/Albuterol Neb [Duoneb] 3 ml IH [id number] inhsol 09/03/18 [Rx] Allergies/Adverse Reactions: Allergy/AdvReac Type Severity Reaction Status Date / Time betamethasone Allergy Hives Verified 04/20/17 20:35 [From Lotrisone] carbamazepine [From Tegretol] Allergy Hives Verified 04/20/17 20:35 chlorpromazine Allergy Hives Verified 04/20/17 20:35 [From Thorazine] clotrimazole [From Lotrisone] Allergy Hives Verified 04/20/17 20:35 Mesoridazine [From Serentil] Allergy Hives Verified 04/20/17 20:35 Date of admission: 08/29/18 16:19 Primary care physician: Timothy Jenkins MD Consults: 09/02/18 07:07 Consult to Occupational Therapy [CONS] Routine Comment: Evaluate, develop and implement POC Reason for Consult: deconditioning Does patient have active BEDREST order?: No Is patient medically & hemodynamically stable?: Yes Consult to Physical Therapy [CONS] Routine Comment: Evaluate, develop and implement POC Reason for Consult: deconditioning Does patient have active BEDREST order?: No Is patient medically & hemodynamically stable?: Yes Consult to Speech Therapy [CONS] Routine Comment: Evaluate, develop and implement POC Reason for Consult: swallow eval Call Completed: No - Constitutional Vitals: Temp Pulse Resp BP Pulse Ox 98.6 F 86 16 100/65 90 09/03/18 11:18 09/03/18 11:18 09/03/18 11:18 09/03/18 11:18 09/03/18 11:18 - Patient Status Disposition: Transfer SNF Condition: Good - Discharge Instructions Follow Up With: Timothy Jenkins MD [Primary Care Provider] - 09/14/18 2:00 pm (Please follow up as schedule...) Additional Instructions: Please take medications as prescribed. To complete sleep study as outpatient and may need BiPAP in the mean time. Return or seek medical care if patient has new or worsening symptoms such as respiratory distress or confusion. - Attending Attestation I saw evaluated and examined this patient and my medical decision-making was reviewed with the Resident Physician, Bebeto Gómez. I agree with the documented findings, disposition and treatment plan as described except to any changes set forth below. We independently had [id number] contact with the patient. Patient with a history of intellectual disability, hypothyroidism was hospitalized here after presenting to the ER with concerns that she aspirated pureed food. She was noted to be hypoxic at 87% on room air and was also ta chycardic. She was diagnosed with acute hypoxic respiratory failure and treated with O2 supplementation. She had previously been diagnosed with restrictive airway disease and was also hypercarbic and required BiPAP. Patient also had been moved to ICU on 09/01 due to concerns for worsening hypercarbia and increased drowsiness. She improved while in the ICU with BiPAP and has not been moved out to the floor and is now doing well. She is on nasal cannula currently. She is clinically stable to be discharged to skilled rehabilitation when she is accepted there. She will continue to use BiPAP at the rehabilitation. She will follow up with pulmonology after discharge. On exam, patient was somnolent when I evaluated her earlier today. Decreased breath sounds at both bases. Abdomen is soft, nontender. No pedal edema noted. <Bebeto Gómez - Last Filed: 09/03/18 17:19> - NOTES TO OUTPATIENT PROVIDER Notes to Outpatient Provider: Patient will need bipap at night and outpatient sleep study. Date of Encounter: 09/03/18 Time of Encounter: 13:30 - Discharge Diagnosis (1) Acute on chronic respiratory failure with hypoxia and hypercapnia Priority: Primary Status: Acute (2) Morbidly obese Priority: Secondary Status: Acute (3) Restrictive airway disease Priority: Secondary Status: Acute (4) Acute metabolic encephalopathy Priority: Secondary Status: Acute (5) Metabolic alkalosis Priority: Secondary Status: Acute (6) Obesity hypoventilation syndrome Priority: Secondary Status: Acute (7) Sleep-disordered breathing Priority: Secondary Status: Suspected Hospital course: Katya Guzman is a 55 year old woman with intellectual disability and psychiatric disorders who is brought into the emergency room by her caretakers after aspirating pureed food. It is reported that due to her cognitive disability she lives in a intermediate and that she frequently undergoes aspiration episodes in which she is brought in for medical assessment. It was stated that as she tried to take a breath and she accidentally aspirated her meal. She did not cough up anything and was well-appearing however per their protocol she is to be brought into the ED any time she reportedly chokes. In the ER she was rather well-appearing and in no acute distress. X-ray did not reveal any abnormalities and she was to be discharged home however on subsequent reassessment she was noted hypoxic to 87% on room air and tachycardic at 120 even though usually she never requires supplemental oxygen. She was placed on 3L nasal cannula with improvement to 94% and a CTA was done to rule out foreign body and pulmonary embolism and these findings were negative however due to her ongoing hypoxia with no apparent reason she is admitted for observation. There were no signs of pneumonitis on CT imaging but some mild atelectasis and areas of hypoaeration. She initially did well inpatient on just supplemental oxygen, however on 08/31/18 she had acute hypoxic respiratory failure and later hypercapneia. Patient believed to have underlying REJI, she was started on BiPAP during hospitalization and will need outpatient sleep study. Some of patient's c onfusion seemed to improved, it was thought to be acute encephalopathy secondary to hypercapnia. Speech therapy evaluated patient, recommending pureed foods continued but with thickened liquids. Pt/Ot recommending ECF, patient agreeable. Plan to discharge today and patient is doing well on supplemental O2 via NC, will need BiPAP at night. Discharge discussed with: patient - Time Spent with Patient Total time spent providing and/or coordinating discharge services: Less than 30 minutes Date of admission: 08/29/18 16:19 Primary care physician: Timothy Jenkins MD Consults: 09/02/18 07:07 Consult to Occupational Therapy [CONS] Routine Comment: Evaluate, develop and implement POC Reason for Consult: deconditioning Does patient have active BEDREST order?: No Is patient medically & hemodynamically stable?: Yes Consult to Physical Therapy [CONS] Routine Comment: Evaluate, develop and implement POC Reason for Consult: deconditioning Does patient have active BEDREST order?: No Is patient medically & hemodynamically stable?: Yes Consult to Speech Therapy [CONS] Routine Comment: Evaluate, develop and implement POC Reason for Consult: swallow eval Call Completed: No Discharging clinician: Jolly Armijo Anticipated date of discharge: 09/03/18 - Constitutional Vitals: Temp Pulse Resp BP Pulse Ox 98.6 F 86 16 100/65 90 09/03/18 11:18 09/03/18 11:18 09/03/18 11:18 09/03/18 11:18 09/03/18 11:18 Exam: General appearance: no acute distress, alert Eyes: conjunctivae clear without mattening, sclera nonicteric ENT: oropharynx moist Neck: supple Auscultation: bilateral: diminished breath sounds, wheezes (scattered) Cardiovascular: regular rate and rhythm, no murmurs Gastrointestinal: normoactive bowel sounds, soft, non-tender, non-distended Integumentary: normal, no erythema, nontender Extremities: no cyanosis, no edema, no clubbing, pink and warm, pulses normal Neuro: no-focal deficits, speech clear - Patient Status Functional capacity at discharge: wheelchair bound Overall status at discharge: patient is progressing back to baseline - Diet and Activity Activity: as per physical therapy Diet: other (pureed diet with thickened liquids)
--- NOTE | 2018-09-03 14:45 | Physician Discharge Referral ---
<Bebeto Gómez - Last Filed: 09/03/18 14:47> [facility] Referral Info Provider in Charge after Transfer: PCP Institutional Level of Care: Skilled - Diagnosis (1) Acute on chronic respiratory failure with hypoxia and hypercapnia Priority: Primary Status: Acute (2) Morbidly obese Priority: Secondary Status: Acute (3) Restrictive airway disease Priority: Secondary Status: Acute (4) Acute metabolic encephalopathy Priority: Secondary Status: Acute (5) Metabolic alkalosis Priority: Secondary Status: Acute (6) Obesity hypoventilation syndrome Priority: Secondary Status: Acute (7) Sleep-disordered breathing Priority: Secondary Status: Suspected Prognosis: Fair Aware of Diagnosis: Patient Aware of Prognosis: Patient - Transfer Medications Home Medications: RX: Aspirin Enteric Coated [Aspirin EC] 81 mg PO DAILY 06/11/16 [History] RX: Bismuth Subsalicylate [PEPTO-BISMOL (262mg/15mL) Susp] 15 ml PO Q4H PRN 06/11/16 [History] RX: Calcium Carbonate/Vitamin D3 [Oyster Shell Calcium-Vit D Tab] 1 tab PO DAILY 06/11/16 [History] RX: Cholecalciferol (D-3) [Vitamin D] 1,000 unit PO DAILY 06/11/16 [History] RX: Furosemide [Lasix] 20 mg PO QPM 06/11/16 [History] RX: GuaiFENesin/Dextromethorphan [Tussin Dm Syrup] 5 ml PO Q4H PRN 06/11/16 [History] RX: Ibuprofen [Motrin] 600 mg PO BID PRN 06/11/16 [History] RX: Latanoprost [Xalatan] 1 drop RIGHT EYE HS 06/11/16 [History] RX: Loperamide HCl [Imodium A-D] 2 mg PO AD PRN 06/11/16 [History] RX: Loratadine [Claritin] 10 mg PO DAILY 06/11/16 [History] RX: Reagan/Poly/Geovany OINT [Triple Antibiotic Ointment] 1 appl TP TID PRN 06/11/16 [History] RX: Divalproex Sodium [Depakote] 500 mg PO BID 09/03/16 [History] RX: Acetaminophen [Tylenol] 500 mg PO Q6HR PRN 08/27/18 [History] RX: Atorvastatin [Lipitor] 40 mg PO QPM 08/27/18 [History] RX: Benztropine [Cogentin] 1 mg PO BID 08/27/18 [History] RX: Fluvoxamine Maleate 50 mg PO QPM 08/27/18 [History] RX: Furosemide [Lasix] 40 mg PO QAM 08/27/18 [History] RX: Icosapent Ethyl [Vascepa] 1 cap PO TID 08/27/18 [History] RX: Levothyroxine Sodium 112 mcg PO QAM 08/27/18 [History] RX: Meloxicam 7.5 mg PO QAM 08/27/18 [History] RX: Multivitamin [One Daily Essential] 1 each PO DAILY 08/27/18 [History] RX: Mupirocin [Bactroban Oint] 1 applic TP TID 08/27/18 [History] RX: Propranolol [Inderal] 20 mg PO BID 08/27/18 [History] RX: Selenium Sulfide/Aloe Vera [Selsun Blue Moist 1% Shampoo] 1 appl TP AD 08/27/18 [History] RX: cloZAPine [Clozaril] 12.5 mg PO BID 08/27/18 [History] RX: clonazePAM [Clonazepam] 0.25 mg PO QAM 08/27/18 [History] RX: clonazePAM [Clonazepam] 0.5 mg PO QPM 08/27/18 [History] RX: Ipratropium/Albuterol Neb [Duoneb] 3 ml IH [id number] inhsol 09/03/18 [Rx] Allergies/Adverse Reactions: Allergy/AdvReac Type Severity Reaction Status Date / Time betamethasone Allergy Hives Verified 04/20/17 20:35 [From Lotrisone] carbamazepine [From Tegretol] Allergy Hives Verified 04/20/17 20:35 chlorpromazine Allergy Hives Verified 04/20/17 20:35 [From Thorazine] clotrimazole [From Lotrisone] Allergy Hives Verified 04/20/17 20:35 Mesoridazine [From Serentil] Allergy Hives Verified 04/20/17 20:35 - Respiratory Orders Oxygen / L per min (BiPAP at night pending outpatient sleep study) Smoking Cessation: Smoking cessation has been advised. For more information, call the [place] Tobacco Quit Line at 9-791-SBCF-NOW. - Ancillary Orders May use pressure relief devices daily prn - Advance Directives Living Will: No Power of Commercial [employer] Service Technician for Health Care: Yes (guardian Becca Barrera ) Code Status: Full Code - Mobility Orders Chair, Ambulate (per PT) - Rehabiliation Orders Rehab Potential: Fair Rehab Orders: ROM Exercises, Evaluation for Physical Therapy, Evaluation for Occupational Therapy - Treatments Skin tear care topically daily PRN per policy, May check for fecal impaction rectally daily PRN, Fleet enema rectally every other day PRN cleansing purposes - Diet Orders Pureed (with thickened liquids) CERTIFICATION: I certify that the transfer of the above named patient to an Extended Care Facility is necessary for the continuing treatment of the diagnosis listed. The above information is true and accurate reflection of patient's current condition. Confidential - Redisclosure prohibited without a patient's written consent. <Jolly Armijo - Last Filed: 09/03/18 15:55> - Diagnosis (1) Dysphagia Status: Acute (2) Acute respiratory failure with hypoxia and hypercapnia Status: Acute (3) DVT prophylaxis Status: Acute (4) Hyperlipidemia Status: Acute (5) Morbidly obese Status: Acute (6) Hypothyroidism Status: Acute (7) Developmental delay, severe Status: Acute (8) Restrictive airway disease Status: Acute (9) Acute metabolic encephalopathy Status: Acute - Respiratory Orders Oxygen / L per min Smoking Cessation: Smoking cessation has been advised. For more information, call the [employer] Tobacco Quit Line at 5-140-KBCSNOW. CERTIFICATION: I certify that the transfer of the above named patient to an Extended Care Facility is necessary for the continuing treatment of the diagnosis listed. The above information is true and accurate reflection of patient's current condition. Confidential - Redisclosure prohibited without a patient's written consent.
[2018-09-03 16:40] VITALS: BP 113/73
== END 2018-09-03 19:00 | DRG 205 ==
LOC: 2ANU 12:38 → EMEROOARM 12:38 → SUATTDRO 21:54 → 2ANU 22:36 → SUATTDRO 08-29 16:19 → ICNU 09-01 16:30 → 2ANU 09-02 17:43
PROVIDERS: ADMIT Internal Medicine; ATTEND Internal Medicine

== ENCOUNTER 2019-02-14 13:20 | Inpatient (IN) ==
--- NOTE | 2019-02-14 14:26 | Emergency Department Note ---
Disposition Clinical Impression: COPD exacerbation Disposition: Home, Self-Care Condition: Good General Adult HPI - General Chief complaint: ED Recheck/Abnormal Lab/Rx Stated complaint: Chest Pain Time Seen by Provider: 02/14/19 13:25 Source: patient, EMS Limitations: altered mental status Nursing Notes Reviewed: Yes Vital Signs Reviewed: Yes - History of Present Illness HPI Narrative: 58 yo F with a h/o MR/DD and CHF presents to the ED via EMS from [facility] c/o CP. EMS reports that the pt was found to have low O2 sats at the SNF and they did an ABG that came back abnormal and was transferred to the ED. The pt c/o CP that began at 1200 today and has had associated SOB since the CP started. She states that the CP is a sharp pain stabbing her in the left side of the chest and it is exacerbated with taking deep breaths. She also c/o some nausea and diffuse abd pain but denies any vomiting or diarrhea or any other sx at this time. History is limited due to the pt's MR/DD except what is stated above, but able to answer yes or no to simple questions. Pt Not able to provide accurate PMHx/PSHx. Pain Scale: 0 - Related Data Home Medications Medication Instructions Recorded Confirmed Benztropine Mesylate 1 mg PO BID 09/12/18 02/07/19 Bismuth Subsalicylate 15 ml PO Q4H PRN 09/12/18 02/07/19 [Pepto-Bismol] Fluvoxamine Maleate 50 mg PO HS 09/12/18 02/07/19 Furosemide [Lasix] 40 mg PO BID 09/12/18 02/07/19 Icosapent Ethyl [Vascepa] 1 gm PO TID 09/12/18 02/07/19 Latanoprost [Xalatan] 1 drop RIGHT EYE HS 09/12/18 02/07/19 Levothyroxine Sodium [Tirosint] 112 mcg PO DAILY 09/12/18 02/07/19 Multivit-Min/Iron/Folic Acid/K 1 tab PO DAILY 09/12/18 02/07/19 [Adults Multivitamin Caplet] Nystatin POWDER [Nystop] 1 appl TP BID PRN 09/12/18 02/07/19 guaiFENesin [Scot-Tussin 5 ml PO Q4H PRN 09/12/18 02/07/19 Expectorant] Betaxolol HCl [Betoptic S] 1 drop RIGHT EYE BID 01/19/19 02/07/19 Brinzolamide/Brimonidine Tart 1 drop RIGHT EYE BID 01/19/19 02/07/19 [Simbrinza 1%-0.2% Eye Drops] Calcium Carbonate/Vitamin D3 1 tab PO DAILY #0 01/19/19 02/07/19 [Calcium 600-Vit D3 400 Tablet] Prednisolone Acetate/Pf 1 drop RIGHT EYE BID 01/19/19 02/07/19 [Prednisolone Acet 1% Eye Drop] Aspirin [Adult Aspirin Regimen] 81 mg PO DAILY 02/07/19 02/07/19 Atorvastatin [Lipitor] 40 mg PO HS 02/07/19 02/07/19 Budesonide [Pulmicort] 1 mg IH BID 02/07/19 02/07/19 Cholecalciferol (Vitamin D3) 1,000 unit PO DAILY 02/07/19 02/07/19 [Vitamin D3] Divalproex Sodium 500 mg PO BID 02/07/19 02/07/19 Formoterol Fumarate [Perforomist] 1 puff IH BID 02/07/19 02/07/19 Ipratropium/Albuterol Sulfate 3 ml IH Q6H PRN 02/07/19 02/07/19 [Iprat-Albut 0.5-3(2.5) mg/3 ml] Loratadine [Allergy Relief] 10 mg PO DAILY 02/07/19 02/07/19 Propranolol [Inderal] 20 mg PO BID 02/07/19 02/07/19 cloZAPine [Clozaril] 12.5 mg PO BID 02/07/19 02/07/19 Previous Rx's Medication Instructions Recorded Acetaminophen [Tylenol] 650 mg PO Q6HR PRN tablet 02/10/19 clonazePAM [Clonazepam] 0.25 mg PO DAILY 5 Days #5 02/10/19 tab.rapdis clonazePAM [Klonopin] 0.5 mg PO HS 5 Days #5 tablet 02/10/19 Allergies Allergy/AdvReac Type Severity Reaction Status Date / Time sertraline Allergy Unknown See Verified 02/14/19 13:24 Comments betamethasone Allergy Hives Verified 02/14/19 13:24 [From Lotrisone] carbamazepine [From Tegretol] Allergy Hives Verified 02/14/19 13:24 chlorpromazine Allergy Hives Verified 02/14/19 13:24 [From Thorazine] clotrimazole [From Lotrisone] Allergy Hives Verified 02/14/19 13:24 Mesoridazine [From Serentil] Allergy Hives Verified 02/14/19 13:24 Review of Systems: ROS limited secondary to MR/DD Constitutional: Denies: fever, chills Cardiovascular: Reports: chest pain. Denies: palpitations, syncope Respiratory: Reports: dyspnea. Denies: cough Gastrointestinal: Reports: abdominal pain, nausea. 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 history - Social History Smoking Status: Former smoker Smokeless Tobacco Status: No Alcohol use: Reports: none Drug use: Reports: none Physical Exam - General Limitations: altered mental status General appearance: alert Course Vital Signs Temperature 98.3 F 02/14/19 13:25 Pulse Rate 92 02/14/19 13:25 Respiratory Rate 18 02/14/19 13:25 Blood Pressure 123/74 02/14/19 13:25 O2 Sat by Pulse Oximetry 95 02/14/19 13:25 Temperature 98.3 F 02/14/19 13:25 Pulse Rate 81 02/14/19 17:00 Respiratory Rate 15 02/14/19 17:00 Blood Pressure 111/85 02/14/19 17:00 O2 Sat by Pulse Oximetry 95 02/14/19 17:00 Oxygen Delivery Oxygen Delivery Bipap Medical Decision Making - MDM Narrative Medical decision making narrative: Chest X-Ray 02/14/19 14:07 IMPRESSION: No acute process. D/ / 02/14/2019 14:47:57 Dante Lee MD / Hannah Logan Interpreting Provider: Dante Lee MD Patient's labs look good. Waiting on VBG d-dimer is negative she is low risk with Wells criteria. I wonder if this is more a COPD exacerbation. 1800 hrs. hospitalist seen patient and agrees to the admission. Workup for COPD with hypercarbia. Patient's admitted at this time. - Lab Data Result diagrams: 02/14/19 14:15 02/14/19 14:15 Lab Results 02/14/19 02/14/19 02/14/19 Range/Units 14:15 14:15 14:15 WBC 6.5 (4.3-11.1) K/mcL RBC 4.38 (3.82-4.97) M/mcL Hgb 13.0 (11.5-15.4) g/dL Hct 42.0 (35.3-44.9) % MCV 95.9 (83.0-100.0) fL MCH 29.7 (28.0-33.3) pg MCHC 31.0 L (31.6-35.5) g/dL RDW 12.5 (11.5-14.5) % Plt Count 135 L (140-400) K/mcL MPV 9.6 (9.4-12.4) fL Immature Gran % 1.1 (0-4) % Seg Neutrophils % 35.4 % Lymphocytes % 44.8 % Monocytes % 15.6 % Eosinophils % 2.8 % Basophils % 0.3 % Neutrophils # 2.3 (1.6-8.9) K/mcL Lymphocytes # 2.9 (0.6-4.6) K/mcL Monocytes # 1.0 (0.0-1.3) K/mcL Eosinophils # 0.2 (0.0-0.6) K/mcL Basophils # 0.0 (0.0-0.2) K/mcL Nucleated RBCs/100 WBC 0.5 H (0) /100 WBC D-Dimer (0-500) ng/mLFEU VBG pH (7.32-7.42) pH Units VBG pCO2 (41-51) mmHg VBG pO2 (25-50) mmHg VBG HCO3 (21-27) mEq/L Sodium 142 (136-145) mEq/L Potassium 4.2 (3.5-5.1) mEq/L Chloride 100 (98-107) mEq/L Carbon Dioxide 39 H (23-29) mEq/L BUN 12 (6-20) mg/dL Creatinine 0.62 (0.60-1.20) mg/dL Est GFR ( Amer) > 60 (> 60) Est GFR (Non-Af Amer) > 60 (> 60) BUN/Creatinine Ratio 19 (6-26) Glucose 203 H (70-105) mg/dL Calculated Osmolality 300 (280-300) Calcium 8.7 (8.6-10.3) mg/dL Troponin I < 0.03 (< 0.04) ng/mL B-Natriuretic Peptide 25 (Less than 100) pg/mL Person Notif of Crit 02/14/19 02/14/19 Range/Units 14:15 16:30 WBC (4.3-11.1) K/mcL RBC (3.82-4.97) M/mcL Hgb (11.5-15.4) g/dL Hct (35.3-44.9) % MCV (83.0-100.0) fL MCH (28.0-33.3) pg MCHC (31.6-35.5) g/dL RDW (11.5-14.5) % Plt Count (140-400) K/mcL MPV (9.4-12.4) fL Immature Gran % (0-4) % Seg Neutrophils % % Lymphocytes % % Monocytes % % Eosinophils % % Basophils % % Neutrophils # (1.6-8.9) K/mcL Lymphocytes # (0.6-4.6) K/mcL Monocytes # (0.0-1.3) K/mcL Eosinophils # (0.0-0.6) K/mcL Basophils # (0.0-0.2) K/mcL Nucleated RBCs/100 WBC (0) /100 WBC D-Dimer 420 (0-500) ng/mLFEU VBG pH 7.28 L (7.32-7.42) pH Units VBG pCO2 87 H* (41-51) mmHg VBG pO2 68 H (25-50) mmHg VBG HCO3 40 H (21-27) mEq/L Sodium (136-145) mEq/L Potassium (3.5-5.1) mEq/L Chloride (98-107) mEq/L Carbon Dioxide (23-29) mEq/L BUN (6-20) mg/dL Creatinine (0.60-1.20) mg/dL Est GFR ( Amer) (> 60) Est GFR (Non-Af Amer) (> 60) BUN/Creatinine Ratio (6-26) Glucose (70-105) mg/dL Calculated Osmolality (280-300) Calcium (8.6-10.3) mg/dL Troponin I (< 0.04) ng/mL B-Natriuretic Peptide (Less than 100) pg/mL Person Notif of Tuyet QUINONEZ Critical Care Time Critical Care Time: Yes Total Critical Care Time: 30 Attestation: Excluding a separately billable procedures. Attestation Statement - Attestation Attestation: This documentation is done with the assistance of Dragon dictation. Despite efforts made to ensure accuracy, there may be inaccuracies in upstairs maid or spelling and typographical errors. I examined this patient and my medical decision-making was reviewed with the Resident Physician. I agree with the documented findings, disposition and treatment plan as described except to the extent set forth below. Patient seen and evaluated on arrival by Dr. Hampton and myself, I agree with his evaluation and management plan, I supervised the care the patient's stay. Patient comes in from nursing facility was low little dyspneic today they got an ABG and found the PCO2 was high so they sent her in here to be seen. She is not the best historian but she cannot lay she is not any chest pain at this point but did have pain earlier. Were going to do a workup on her including a d-dimer then reassess. She is resting comfortable at this time.
[2019-02-14 14:31] LABS: Basophils % 0.3 %; Eosinophils # 0.2 K/mcL (0.0-0.6); Eosinophils % 2.8 %; Immature Granulocytes % 1.1 % (0-4); Lymphocytes # 2.9 K/mcL (0.6-4.6); Lymphocytes % 44.8 %; Mean Corpuscular Hemoglobin 29.7 pg (28.0-33.3); Mean Corpuscular Volume 95.9 fL (83.0-100.0); Mean Platelet Volume 9.6 fL (9.4-12.4); Monocytes % 15.6 %; Neutrophils # 2.3 K/mcL (1.6-8.9); Nucleated Red Blood Cells 0.5 /100 WBC (0); Platelet Count 135 K/mcL (140-400); Red Blood Count 4.38 M/mcL (3.82-4.97); Red Cell Distribution Width 12.5 % (11.5-14.5); Segmented Neutrophils % 35.4 %
[2019-02-14 14:53] LABS: BUN/Creatinine Ratio 19 (6-26); Blood Urea Nitrogen 12 mg/dL (6-20); Calcium 8.7 mg/dL (8.6-10.3); Carbon Dioxide 39 mEq/L (23-29); Chloride 100 mEq/L (98-107); Glucose 203 mg/dL (70-105); Osmolality,Calculated 300 (280-300); Potassium 4.2 mEq/L (3.5-5.1); Sodium 142 mEq/L (136-145); eGFR For Non-African Americans > 60 (> 60)
[2019-02-14 14:54] LABS: Troponin I < 0.03 ng/mL (< 0.04)
[2019-02-14 16:36] LABS: VBG HCO3 40 mEq/L (21-27); VBG PCO2 87 mmHg (41-51); VBG PH 7.28 pH Units (7.32-7.42); VBG PO2 68 mmHg (25-50)
--- NOTE | 2019-02-14 17:13 | Emergency Department Note ---
Disposition Clinical Impression: COPD exacerbation Disposition: Home, Self-Care Condition: Good Time of Disposition: 18:00 General Adult HPI - General Chief complaint: ED Recheck/Abnormal Lab/Rx Stated complaint: Chest Pain Time Seen by Provider: 02/14/19 13:25 Source: patient, EMS Limitations: altered mental status Nursing Notes Reviewed: Yes Vital Signs Reviewed: Yes - History of Present Illness HPI Narrative: I have re-performed and reviewed the history documented by the medical student, and I confirm its accuracy except as noted below 58-year-old female past medical history of CHF presenting for one day history of difficulty breathing Patient states that she has had chest discomfort with this which is currently resolved Patient hospitalized in the past for CHF exacerbation seen one week ago for s imilar presentation. Patient currently complaining of lightheadedness/dizziness, remainder of review of systems negative. Chest X-Ray 02/14/19 14:07 IMPRESSION: No acute process. D/ / 02/14/2019 14:47:57 Dante Lee MD / Hannah Logan Interpreting Provider: Dante Lee MD Pain Scale: 0 - Related Data Home Medications Medication Instructions Recorded Confirmed Benztropine Mesylate 1 mg PO BID 09/12/18 02/07/19 Bismuth Subsalicylate 15 ml PO Q4H PRN 09/12/18 02/07/19 [Pepto-Bismol] Fluvoxamine Maleate 50 mg PO HS 09/12/18 02/07/19 Furosemide [Lasix] 40 mg PO BID 09/12/18 02/07/19 Icosapent Ethyl [Vascepa] 1 gm PO TID 09/12/18 02/07/19 Latanoprost [Xalatan] 1 drop RIGHT EYE HS 09/12/18 02/07/19 Levothyroxine Sodium [Tirosint] 112 mcg PO DAILY 09/12/18 02/07/19 Multivit-Min/Iron/Folic Acid/K 1 tab PO DAILY 09/12/18 02/07/19 [Adults Multivitamin Caplet] Nystatin POWDER [Nystop] 1 appl TP BID PRN 09/12/18 02/07/19 guaiFENesin [Scot-Tussin 5 ml PO Q4H PRN 09/12/18 02/07/19 Expectorant] Betaxolol HCl [Betoptic S] 1 drop RIGHT EYE BID 01/19/19 02/07/19 Brinzolamide/Brimonidine Tart 1 drop RIGHT EYE BID 01/19/19 02/07/19 [Simbrinza 1%-0.2% Eye Drops] Calcium Carbonate/Vitamin D3 1 tab PO DAILY #0 01/19/19 02/07/19 [Calcium 600-Vit D3 400 Tablet] Prednisolone Acetate/Pf 1 drop RIGHT EYE BID 01/19/19 02/07/19 [Prednisolone Acet 1% Eye Drop] Aspirin [Adult Aspirin Regimen] 81 mg PO DAILY 02/07/19 02/07/19 Atorvastatin [Lipitor] 40 mg PO HS 02/07/19 02/07/19 Budesonide [Pulmicort] 1 mg IH BID 02/07/19 02/07/19 Cholecalciferol (Vitamin D3) 1,000 unit PO DAILY 02/07/19 02/07/19 [Vitamin D3] Divalproex Sodium 500 mg PO BID 02/07/19 02/07/19 Formoterol Fumarate [Perforomist] 1 puff IH BID 02/07/19 02/07/19 Ipratropium/Albuterol Sulfate 3 ml IH Q6H PRN 02/07/19 02/07/19 [Iprat-Albut 0.5-3(2.5) mg/3 ml] Loratadine [Allergy Relief] 10 mg PO DAILY 02/07/19 02/07/19 Propranolol [Inderal] 20 mg PO BID 02/07/19 02/07/19 cloZAPine [Clozaril] 12.5 mg PO BID 02/07/19 02/07/19 Previous Rx's Medication Instructions Recorded Acetaminophen [Tylenol] 650 mg PO Q6HR PRN tablet 02/10/19 clonazePAM [Clonazepam] 0.25 mg PO DAILY 5 Days #5 02/10/19 tab.rapdis clonazePAM [Klonopin] 0.5 mg PO HS 5 Days #5 tablet 02/10/19 Allergies Allergy/AdvReac Type Severity Reaction Status Date / Time sertraline Allergy Unknown See Verified 02/14/19 13:24 Comments betamethasone Allergy Hives Verified 02/14/19 13:24 [From Lotrisone] carbamazepine [From Tegretol] Allergy Hives Verified 02/14/19 13:24 chlorpromazine Allergy Hives Verified 02/14/19 13:24 [From Thorazine] clotrimazole [From Lotrisone] Allergy Hives Verified 02/14/19 13:24 Mesoridazine [From Serentil] Allergy Hives Verified 02/14/19 13:24 All systems ED: reviewed and negative except as stated. Review of Systems: As Per HPI Constitutional: Denies: fever, chills Cardiovascular: Reports: chest pain. Denies: palpitations, syncope Respiratory: Reports: dyspnea. Denies: cough Gastrointestinal: Reports: abdominal pain, nausea. Denies: vomiting, diarrhea Genitourinary: Denies: hematuria Musculoskeletal: Denies: back pain, neck pain Neurological: Reports: weakness. 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 Absent: scleral icterus - Neck Neck exam: Present: normal inspection, trachea midline. Absent: lymphadenopathy - Chest Chest inspection: Present: normal inspection, symmetric chest wall rise - Respiratory Respiratory exam: Present: normal lung sounds bilaterally. Absent: respiratory distress, wheezes, stridor, accessory muscle use, prolonged expiratory phase - Cardiovascular Cardiovascular exam: Present: regular rate, normal rhythm, +S1, +S2. Absent: systolic murmur, diastolic murmur, JVD, +S3, +S4 - Abdominal Exam Abdominal exam: Present: soft, Non-Tender, normal bowel sounds. Absent: distention, guarding, rebound, rigidity, organomegaly - Extremities Exam Extremities exam: Present: normal inspection. Absent: pedal edema - Neurological Exam Neurological exam: Present: alert, oriented X3 - Psychiatric Psychiatric exam: Present: normal affect, normal mood - Skin Skin exam: Present: warm, dry, intact, normal color. Absent: rash, cyanosis, diaphoresis, erythema, pallor, mottled Course Course Narrative: VBG shows hypercapnia Patient will be placed on BiPAP Patient will be admitted to hospital medicine service for further evaluation and management of potential COPD exacerbation. Vital Signs Temperature 98.3 F 02/14/19 13:25 Pulse Rate 92 02/14/19 13:25 Respiratory Rate 18 02/14/19 13:25 Blood Pressure 123/74 02/14/19 13:25 O2 Sat by Pulse Oximetry 95 02/14/19 13:25 Temperature 98.3 F 02/14/19 13:25 Pulse Rate 88 02/14/19 15:42 Respiratory Rate 14 02/14/19 16:45 Blood Pressure 118/75 02/14/19 15:42 O2 Sat by Pulse Oximetry 95 02/14/19 16:45 Oxygen Delivery Oxygen Delivery Nasal Cannula Medical Decision Making - MDM Narrative Medical decision making narrative: Chest X-Ray 02/14/19 14:07 IMPRESSION: No acute process. D/ / 02/14/2019 14:47:57 Dante Lee MD / Hannah robins Interpreting Provider: Dante Lee MD 1700 hrs. still doing well while on BiPAP. Regular and bring her in for hypercarbia and acute exacerbation COPD. - Lab Data Lab results reviewed: Yes I reviewed the patient's lab results. Result diagrams: 02/14/19 14:15 02/14/19 14:15 Lab Results 02/14/19 02/14/19 02/14/19 Range/Units 14:15 14:15 14:15 WBC 6.5 (4.3-11.1) K/mcL RBC 4.38 (3.82-4.97) M/mcL Hgb 13.0 (11.5-15.4) g/dL Hct 42.0 (35.3-44.9) % MCV 95.9 (83.0-100.0) fL MCH 29.7 (28.0-33.3) pg MCHC 31.0 L (31.6-35.5) g/dL RDW 12.5 (11.5-14.5) % Plt Count 135 L (140-400) K/mcL MPV 9.6 (9.4-12.4) fL Immature Gran % 1.1 (0-4) % Seg Neutrophils % 35.4 % Lymphocytes % 44.8 % Monocytes % 15.6 % Eosinophils % 2.8 % Basophils % 0.3 % Neutrophils # 2.3 (1.6-8.9) K/mcL Lymphocytes # 2.9 (0.6-4.6) K/mcL Monocytes # 1.0 (0.0-1.3) K/mcL Eosinophils # 0.2 (0.0-0.6) K/mcL Basophils # 0.0 (0.0-0.2) K/mcL Nucleated RBCs/100 WBC 0.5 H (0) /100 WBC D-Dimer (0-500) ng/mLFEU VBG pH (7.32-7.42) pH Units VBG pCO2 (41-51) mmHg VBG pO2 (25-50) mmHg VBG HCO3 (21-27) mEq/L Sodium 142 (136-145) mEq/L Potassium 4.2 (3.5-5.1) mEq/L Chloride 100 (98-107) mEq/L Carbon Dioxide 39 H (23-29) mEq/L BUN 12 (6-20) mg/dL Creatinine 0.62 (0.60-1.20) mg/dL Est GFR ( Amer) > 60 (> 60) Est GFR (Non-Af Amer) > 60 (> 60) BUN/Creatinine Ratio 19 (6-26) Glucose 203 H (70-105) mg/dL Calculated Osmolality 300 (280-300) Calcium 8.7 (8.6-10.3) mg/dL Troponin I < 0.03 (< 0.04) ng/mL B-Natriuretic Peptide 25 (Less than 100) pg/mL Person Notif of Crit 02/14/19 02/14/19 Range/Units 14:15 16:30 WBC (4.3-11.1) K/mcL RBC (3.82-4.97) M/mcL Hgb (11.5-15.4) g/dL Hct (35.3-44.9) % MCV (83.0-100.0) fL MCH (28.0-33.3) pg MCHC (31.6-35.5) g/dL RDW (11.5-14.5) % Plt Count (140-400) K/mcL MPV (9.4-12.4) fL Immature Gran % (0-4) % Seg Neutrophils % % Lymphocytes % % Monocytes % % Eosinophils % % Basophils % % Neutrophils # (1.6-8.9) K/mcL Lymphocytes # (0.6-4.6) K/mcL Monocytes # (0.0-1.3) K/mcL Eosinophils # (0.0-0.6) K/mcL Basophils # (0.0-0.2) K/mcL Nucleated RBCs/100 WBC (0) /100 WBC D-Dimer 420 (0-500) ng/mLFEU VBG pH 7.28 L (7.32-7.42) pH Units VBG pCO2 87 H* (41-51) mmHg VBG pO2 68 H (25-50) mmHg VBG HCO3 40 H (21-27) mEq/L Sodium (136-145) mEq/L Potassium (3.5-5.1) mEq/L Chloride (98-107) mEq/L Carbon Dioxide (23-29) mEq/L BUN (6-20) mg/dL Creatinine (0.60-1.20) mg/dL Est GFR ( Amer) (> 60) Est GFR (Non-Af Amer) (> 60) BUN/Creatinine Ratio (6-26) Glucose (70-105) mg/dL Calculated Osmolality (280-300) Calcium (8.6-10.3) mg/dL Troponin I (< 0.04) ng/mL B-Natriuretic Peptide (Less than 100) pg/mL Person Notif of Tuyet QUINONEZ - EKG Data EKG #1 EKG attestation: Yes I reviewed and interpreted this EKG. EKG results narrative: Patient EKG shows sinus rhythm with abnormal R-wave progression heart rate of 92 bpm, [place] interval of 159 ms, QRS duration of 86, QT/QTc interval of 374/463 ms respectively. There are no significant ST segment elevations, depressions, pathologic Q waves, abnormal T-wave inversions, or any other signs of acute ischemic change. EKG performed today is generally consistent with prior EKG performed on 02/07/2019.
--- NOTE | 2019-02-14 17:56 | Internal Med History&Physical ---
Date of Encounter: 02/14/19 Time of Encounter: 18:00 Internal Medicine - H&P: HPI Chief complaint: Shortness of breath Admitted From: Long-term Nursing Facility Plans for Post Hospital Care: Transfer Validation Architect Care History of present illness: Patient is a 58-year-old female with past medical history significant for MRDD, chronic hypoxic and hypercapnic respiratory failure, COPD, orbit obesity and severe obstructive sleep apnea who presents from the correction/ECF due to increased knee of O2 supplementation and hypoxia. Patient not able to give history due to MRDD. I personally discussed case with ER physician who states ECF reported that patient was short of breath and found to be hypoxic with confirmation of ABG. She was sent to the ER for further evaluation. In the ER patient was found to be an acute on chronic hypoxic/hypercapnic respiratory failure ABG showing a pH of 7.28 and a PCO2 of 87. Chest X-ray showed no acute findings. Patient was placed on BiPAP and will be admitted to the medical surgical floor for further management and evaluation. Past Med Surg Social Fam HX - Past Medical History Medical history: hyperlipidemia, other, thyroid disease, CHF Additional medical history: Psychiatric history: previous psychiatric hospitalization, other, bipolar - Past Surgical History Surgical History: no surgical history Additional surgical history: uk - Social History Smoking Status: Former smoker Smokeless Tobacco Status: No Alcohol use: none Drug use: none - Family History Mother Living Status: Hx Family Cardiac Disorders: Yes (stroke) Internal Medicine - H&P: Meds Benztropine Mesylate 1 mg PO BID 09/12/18 [History] Bismuth Subsalicylate [Pepto-Bismol] 15 ml PO Q4H PRN 09/12/18 [History] Fluvoxamine Maleate 50 mg PO HS 09/12/18 [History] Furosemide [Lasix] 40 mg PO BID 09/12/18 [History] Icosapent Ethyl [Vascepa] 1 gm PO TID 09/12/18 [History] Latanoprost [Xalatan] 1 drop RIGHT EYE HS 09/12/18 [History] Levothyroxine Sodium [Tirosint] 112 mcg PO DAILY 09/12/18 [History] Multivit-Min/Iron/Folic Acid/K [Adults Multivitamin Caplet] 1 tab PO DAILY 09/12/18 [History] Nystatin POWDER [Nystop] 1 appl TP BID PRN 09/12/18 [History] guaiFENesin [Scot-Tussin Expectorant] 5 ml PO Q4H PRN 09/12/18 [History] Betaxolol HCl [Betoptic S] 1 drop RIGHT EYE BID 01/19/19 [History] Brinzolamide/Brimonidine Tart [Simbrinza 1%-0.2% Eye Drops] 1 drop RIGHT EYE BID 01/19/19 [History] Calcium Carbonate/Vitamin D3 [Calcium 600-Vit D3 400 Tablet] 1 tab PO DAILY #0 01/19/19 [History] Prednisolone Acetate/Pf [Prednisolone Acet 1% Eye Drop] 1 drop RIGHT EYE BID [History] Aspirin [Adult Aspirin Regimen] 81 mg PO DAILY 02/07/19 [History] Atorvastatin [Lipitor] 40 mg PO HS 02/07/19 [History] Budesonide [Pulmicort] 1 mg IH BID 02/07/19 [History] Cholecalciferol (Vitamin D3) [Vitamin D3] 1,000 unit PO DAILY 02/07/19 [History] Divalproex Sodium 500 mg PO BID 02/07/19 [History] Formoterol Fumarate [Perforomist] 1 puff IH BID 02/07/19 [History] Ipratropium/Albuterol Sulfate [Iprat-Albut 0.5-3(2.5) mg/3 ml] 3 ml IH Q6H PRN 02/07/19 [History] Loratadine [Allergy Relief] 10 mg PO DAILY 02/07/19 [History] Propranolol [Inderal] 20 mg PO BID 02/07/19 [History] cloZAPine [Clozaril] 12.5 mg PO BID 02/07/19 [History] Acetaminophen [Tylenol] 650 mg PO Q6HR PRN tablet 02/10/19 [Rx] clonazePAM [Clonazepam] 0.25 mg PO DAILY 5 Days #5 tab.rapdis 02/10/19 [Rx] clonazePAM [Klonopin] 0.5 mg PO HS 5 Days #5 tablet 02/10/19 [Rx] Allergy/AdvReac Type Severity Reaction Status Date / Time sertraline Allergy Unknown See Verified 02/14/19 13:24 Comments betamethasone Allergy Hives Verified 02/14/19 13:24 [From Lotrisone] carbamazepine [From Tegretol] Allergy Hives Verified 02/14/19 13:24 chlorpromazine Allergy Hives Verified 02/14/19 13:24 [From Thorazine] clotrimazole [From Lotrisone] Allergy Hives Verified 02/14/19 13:24 Mesoridazine [From Serentil] Allergy Hives Verified 02/14/19 13:24 ROS unobtainable: due to mental status All Systems PM: A 10-system review of systems was performed and is negative for pertinent findings except as documented above in the HPI. - Constitutional Vitals: Temp Pulse Resp BP Pulse Ox 98.3 F 88 14 118/75 95 02/14/19 13:25 02/14/19 15:42 02/14/19 16:45 02/14/19 15:42 02/14/19 16:45 Exam: General appearance: Present: no acute distress - Head Head exam: Present: normocephalic - Eye Eye exam: Present: normal appearance - ENT ENT exam: Present: mucous membranes moist - Respiratory Respiratory exam: Present: Bilateral diffuse expiratory wheezes - Cardiovascular Cardiovascular exam: Present: RRR, +S1, +S2. Absent: diastolic murmur, gallop, rubs, systolic murmur - GI/Abdominal GI/Abdominal exam: Present: normal bowel sounds, soft, no peritoneal signs. Absent: distended, tenderness - Extremities Exam Extremities exam: Absent: pedal edema Skin exam: -normal color Internal Med - H&P Results - Labs CBC & Chem 7: 02/14/19 14:15 02/14/19 14:15 Labs: Short CBC 02/14/19 Range/Units 14:15 WBC 6.5 (4.3-11.1) K/mcL Hgb 13.0 (11.5-15.4) g/dL Hct 42.0 (35.3-44.9) % Plt Count 135 L (140-400) K/mcL Neutrophils # 2.3 (1.6-8.9) K/mcL BMP 02/14/19 14:15 Sodium 142 Potassium 4.2 Chloride 100 Carbon Dioxide 39 H BUN 12 Creatinine 0.62 Glucose 203 H Calcium 8.7 Cardiac Enzymes 02/14/19 Range/Units 14:15 Troponin I < 0.03 (< 0.04) ng/mL - ABG Interpretation ABG results: 02/14/19 16:30 VBG pH 7.28 L VBG pCO2 87 H* VBG pO2 68 H VBG HCO3 40 H - Impressions ITS Impressions Chest X-Ray 02/14/19 14:07 IMPRESSION: No acute process. D/ / 02/14/2019 14:47:57 Dante Lee MD / Hannah Logan Interpreting Provider: Dante Lee MD - Assessment and Plan (1) Acute on chronic respiratory failure with hypoxia and hypercapnia Current Visit: No Status: Acute Assessment and plan: Patient presents from the correction/ECF due to increased knee of O2 supplementation and hypoxia. In the ER patient was found to be an acute on chronic hypoxic/hypercapnic respiratory failure ABG showing a pH of 7.28 and a PCO2 of 87. Patient afebrile, without leukocytosis and chest X-ray showed no acute findings. Suspect secondary to COPD exacerbation Will start IV Solu-Medrol and scheduled DuoNeb's Will continue BiPAP and repeat ABGs later this evening (2) COPD exacerbation Current Visit: Yes Status: Acute Assessment and plan: Patient apparently is allergic to beclomethasone so not able to give us Solu- Medrol. Will initiate schedule dual nebs Will consult pulmonology and appreciate recommendations (3) Hyperlipidemia Current Visit: No Status: Chronic Assessment and plan: Continue Home medications Qualifiers: Hyperlipidemia type: unspecified Qualified Code(s): E78.5 - Hyperlipidemia, unspecified (4) Hypothyroidism Current Visit: No Status: Chronic Assessment and plan: Continue Home medications Qualifiers: Hypothyroidism type: unspecified Qualified Code(s): E03.9 - Hypothyroidism, unspecified (5) Morbidly obese Current Visit: No Status: Chronic Assessment and plan: BMI of 40.2 (6) Developmental delay, severe Current Visit: No Status: Chronic Assessment and plan: Patient for history MRDD (7) Mood disorder Current Visit: Yes Status: Acute Assessment and plan: Continue Home medications (8) DVT prophylaxis Current Visit: No Status: Acute Assessment and plan: SCDs - Time Spent With Patient Total time spent is greater than 50% in coordination of care (as documented) at patient's floor/unit and/or counseling patient:
[2019-02-14] MEDS ORDERED: Naloxone 0.4 MG/ML INJ IVP PRN (18:00)
[2019-02-14] MEDS: Ipratropium/Albuterol Neb 3 ML IH SCH ×2 (19:38→23:50)
[2019-02-14] MEDS ORDERED: Haloperidol Lactate 5 MG/ML VIAL IVP ONE (19:55)
[2019-02-14] MEDS ORDERED: Haloperidol Lactate 5 MG/ML VIAL ONE (19:59)
[2019-02-14 20:46] LABS: ABG Base Excess 11 mEq/L (-2 to 3); ABG HCO3 42 mEq/L (21-27); ABG Oxygen Saturation 90 % (95-98); ABG PCO2 96 mmHg (35-45); ABG PH 7.25 pH Units (7.32-7.45); ABG PO2 74 mmHg (85-104); ABG TCO2 45 mEq/L (20-26); Blood Gas PEEP 7 cm H2O
[2019-02-15] MEDS: Ipratropium/Albuterol Neb 3 ML IH SCH ×6 (00:03→19:59)
[2019-02-15] MEDS ORDERED: diazePAM 10 MG/2 ML SYRINGE IVP ONE (00:09)
[2019-02-15 00:15] LABS: ABG Base Excess 11 mEq/L (-2 to 3); ABG HCO3 42 mEq/L (21-27); ABG Oxygen Saturation 95 % (95-98); ABG PCO2 88 mmHg (35-45); ABG PH 7.29 pH Units (7.32-7.45); ABG PO2 90 mmHg (85-104); ABG TCO2 45 mEq/L (20-26)
--- NOTE | 2019-02-15 02:48 | Event Note ---
Date of Encounter: 02/14/19 Time of Encounter: 19:53 Alerted by pts. nurse Zach RN to come see the pt. immediately as she was agitated, becoming combative, and taking off her BiPAP. SpO2 in 70s. RT present in the room at the time. Went to see the pt. who was chioma agitated but was not allowing BiPAP to be placed on her. Pt. is MRDD and not providing any verbal information at this time. RT holding Oxymask near pts. face to help oxygenate her, however SpO2 was now only in mid 80s. D/t pts. current hypoxia. one-time order for Haldol 2 mg IVP placed in order for BiPAP to be placed on pt. Alerted at 20:44 by RT that the pt. had a critical CO2 of 96, pH 7.25, O2 74, HCO3 42, and SpO2 90% on BiPAP. Repeat ABG ordered for 00:00 which showed pH 7.29, CO2 88, pO@ 90, HCO3 42, Total CO2 45, and SpO2 95%. Alerted again at 23:31 that the pt. had again pulled off her BiPAP and was exhibiting tremors. Pts. home medications were not ordered at this time d/t no confirmation from ECF where she resides. Pt. takes Divalproex sodium for seizure hx but had not received it yet. Nurse instructed to call ECF to verify the Divalproex is for seizures which they confirmed. Pt. still unable to take PO medications at this time. Concern for possible seizures but pts. tremors appear less severe after IVP Valium. A.M. team to address Divalproex or possible switch to IVPB Keppra. Nurse instructed to continue monitoring pt. very closely and alert me immediately of any adverse changes.
[2019-02-15 05:10] LABS: Basophils % 0.3 %; Eosinophils # 0.2 K/mcL (0.0-0.6); Eosinophils % 2.7 %; Hematocrit 41.6 % (35.3-44.9); Hemoglobin 12.8 g/dL (11.5-15.4); Immature Granulocytes % 0.8 % (0-4); Lymphocytes # 2.6 K/mcL (0.6-4.6); Lymphocytes % 34.9 %; Mean Corpuscular HGB Conc 30.8 g/dL (31.6-35.5); Mean Corpuscular Hemoglobin 29.5 pg (28.0-33.3); Mean Corpuscular Volume 95.9 fL (83.0-100.0); Mean Platelet Volume 9.4 fL (9.4-12.4); Monocytes # 1.1 K/mcL (0.0-1.3); Monocytes % 14.6 %; Neutrophils # 3.4 K/mcL (1.6-8.9); Platelet Count 154 K/mcL (140-400); Red Blood Count 4.34 M/mcL (3.82-4.97); Red Cell Distribution Width 12.7 % (11.5-14.5); Segmented Neutrophils % 46.7 %
[2019-02-15 05:31] LABS: BUN/Creatinine Ratio 21 (6-26); Blood Urea Nitrogen 11 mg/dL (6-20); Calcium 8.4 mg/dL (8.6-10.3); Carbon Dioxide 38 mEq/L (23-29); Chloride 100 mEq/L (98-107); Glucose 97 mg/dL (70-105); Osmolality,Calculated 299 (280-300); Potassium 4.3 mEq/L (3.5-5.1); Sodium 145 mEq/L (136-145); eGFR For Non-African Americans > 60 (> 60)
[2019-02-15] MEDS: Budesonide/Formoterol 160/4.5 1 PUFF INH IH SCH ×2 (07:07→19:59)
--- NOTE | 2019-02-15 07:27 | Pulmonology Consult Note ---
Date of Encounter: 02/15/19 Time of Encounter: 07:10 Assessment and Plan (1) Acute respiratory failure with hypoxia and hypercapnia Current Visit: No Status: Acute This patient has been hospitalized before for similar condition and this time she is feeling better and add Symbicort to her treatment. I have reviewed her labs and since she is awake and following command I would not recommend to be agitation to ABG as long as she is hemodynamically stable and tolerating Noninvasive Ventilation. She Is Being Treated Appropriately and Incentive Spirometry As Well As Early Mobilization Will Be Very Important for This Patient. I do not feel strongly she needs systemic steroid and continue bronchodilators. Please call for any questions and there is no evidence of any pneumonia and her chest x-ray. Thank you for consultation. (2) Obesity hypoventilation syndrome Current Visit: No Status: Chronic Weight loss and noninvasive ventilation. History of Present Illness Consult date: 02/15/19 Requesting physician: Michael Greene Reason for consult: dyspnea Chief complaint: Shortness of breath History of present illness: This is a 58-year-old female with history of chronic hypoxic and hypercapnic respiratory failure and morbid obesity with COPD and also she has underlying MRDD who has been hospitalized before for similar presentation and she was [facility] the [facility]. Patient is feeling better at this time and she is tolerating noninvasive ventilation. The only complaint she has now she is hungry and she wants to eat. Is very limited to take any history from patient. Past Med Surg Social Fam HX - Past Medical History Medical history: hyperlipidemia, other, thyroid disease, CHF Additional medical history: Psychiatric history: previous psychiatric hospitalization, other, bipolar - Past Surgical History Surgical History: no surgical history Additional surgical history: uk - Social History Smoking Status: Former smoker Smokeless Tobacco Status: No Alcohol use: none Drug use: none - Family History Mother Living Status: Hx Family Cardiac Disorders: Yes (stroke) Medications and Allergies Benztropine Mesylate 1 mg PO BID 09/12/18 [History] Bismuth Subsalicylate [Pepto-Bismol] 15 ml PO Q4H PRN 09/12/18 [History] Fluvoxamine Maleate 50 mg PO HS 09/12/18 [History] Furosemide [Lasix] 40 mg PO BID 09/12/18 [History] Icosapent Ethyl [Vascepa] 1 gm PO TID 09/12/18 [History] Latanoprost [Xalatan] 1 drop RIGHT EYE HS 09/12/18 [History] Levothyroxine Sodium [Tirosint] 112 mcg PO DAILY 09/12/18 [History] Multivit-Min/Iron/Folic Acid/K [Adults Multivitamin Caplet] 1 tab PO DAILY 09/12/18 [History] Nystatin POWDER [Nystop] 1 appl TP BID PRN 09/12/18 [History] guaiFENesin [Scot-Tussin Expectorant] 100 mg PO Q4H PRN 09/12/18 [History] Betaxolol HCl [Betoptic S] 1 drop RIGHT EYE BID 01/19/19 [History] Brinzolamide/Brimonidine Tart [Simbrinza 1%-0.2% Eye Drops] 1 drop RIGHT EYE BID 01/19/19 [History] Calcium Carbonate/Vitamin D3 [Calcium 600-Vit D3 400 Tablet] 1 tab PO DAILY #0 01/19/19 [History] Prednisolone Acetate/Pf [Prednisolone Acet 1% Eye Drop] 1 drop RIGHT EYE BID 01/19/19 [History] Aspirin [Adult Aspirin Regimen] 81 mg PO DAILY 02/07/19 [History] Atorvastatin [Lipitor] 40 mg PO HS 02/07/19 [History] Cholecalciferol (Vitamin D3) [Vitamin D3] 1,000 unit PO DAILY 02/07/19 [History] Divalproex Sodium 500 mg PO BID 02/07/19 [History] Formoterol Fumarate [Perforomist] 1 puff IH BID 02/07/19 [History] Ipratropium/Albuterol Sulfate [Iprat-Albut 0.5-3(2.5) mg/3 ml] 3 ml IH Q6H PRN 02/07/19 [History] Loratadine [Allergy Relief] 10 mg PO DAILY 02/07/19 [History] Propranolol [Inderal] 20 mg PO BID 02/07/19 [History] cloZAPine [Clozaril] 12.5 mg PO BID 02/07/19 [History] Acetaminophen [Tylenol] 650 mg PO Q6HR PRN tablet 02/10/19 [Rx] Budesonide 1 mg IH BID 02/14/19 [History] clonazePAM [Clonazepam] 0.5 mg PO HS 02/14/19 [History] Allergy/AdvReac Type Severity Reaction Status Date / Time sertraline Allergy Unknown See Verified 02/14/19 13:24 Comments betamethasone Allergy Hives Verified 02/14/19 13:24 [From Lotrisone] carbamazepine [From Tegretol] Allergy Hives Verified 02/14/19 13:24 chlorpromazine Allergy Hives Verified 02/14/19 13:24 [From Thorazine] clotrimazole [From Lotrisone] Allergy Hives Verified 02/14/19 13:24 Mesoridazine [From Serentil] Allergy Hives Verified 02/14/19 13:24 ROS unobtainable: due to mental status All Systems: The remainder of the systems were reviewed and are negative Physical Examination Vital Signs: Vital Signs, Last 4 Hours Temp Pulse Resp BP Pulse Ox 02/15/19 03:53 99.7 F H 108 18 116/61 98 02/15/19 03:49 15 94 General appearance: no acute distress ENT: oropharynx moist Neck: supple Effort: mildly labored Auscultation: bilateral: diminished breath sounds Percussion: bilateral: not dull Gastrointestinal: normoactive bowel sounds, non-distended Extremities: no cyanosis, edema non-focal exam mood appropriate Results - Laboratory Findings CBC and BMP: 02/15/19 04:02 02/15/19 04:02 ABG ABG pH 7.29 pH Units (7.32-7.45) L 02/15/19 00:04 ABG pCO2 88 mmHg (35-45) H* 02/15/19 00:04 ABG pO2 90 mmHg (85-104) 02/15/19 00:04 ABG O2 Saturation 95 % (95-98) 02/15/19 00:04 PT/INR, D-dimer 420 ng/mLFEU (0-500) 02/14/19 14:15 Abnormal lab findings: Abnormal lab results MCHC 30.8 g/dL (31.6-35.5) L 02/15/19 04:02 Plt Count 135 K/mcL (140-400) L 02/14/19 14:15 Nucleated RBCs/100 WBC 0.5 /100 WBC (0) H 02/14/19 14:15 ABG pH 7.29 pH Units (7.32-7.45) L 02/15/19 00:04 ABG pCO2 88 mmHg (35-45) H* 02/15/19 00:04 ABG pO2 74 mmHg (85-104) L 02/14/19 20:40 ABG HCO3 42 mEq/L (21-27) H 02/15/19 00:04 ABG Total CO2 45 mEq/L (20-26) H 02/15/19 00:04 ABG O2 Saturation 90 % (95-98) L 02/14/19 20:40 ABG Base Excess 11 mEq/L (-2 to 3) H 02/15/19 00:04 VBG pH 7.28 pH Units (7.32-7.42) L 02/14/19 16:30 VBG pCO2 87 mmHg (41-51) H* 02/14/19 16:30 VBG pO2 68 mmHg (25-50) H 02/14/19 16:30 VBG HCO3 40 mEq/L (21-27) H 02/14/19 16:30 Carbon Dioxide 38 mEq/L (23-29) H 02/15/19 04:02 0.52 mg/dL (0.60-1.20) L 02/15/19 04:02 Glucose 203 mg/dL (70-105) H 02/14/19 14:15 Calcium 8.4 mg/dL (8.6-10.3) L 02/15/19 04:02 - Diagnostic Findings Chest x-ray: report reviewed, image reviewed - Clinical Findings Intake & Output: Intake & Output 02/14/19 02/14/19 02/15/19 15:59 23:59 07:59 Intake Total 0 / 0 Output Total 0 / 0 Balance 0 / 0 Weight 127.006 kg 125 kg Consult Discharge Plan - Plan Referrals: NONE,PCP [Primary Care Provider] -
[2019-02-15] MEDS ORDERED: hydrOXYzine pamoate 25 MG CAPSULE PO STA (08:14)
--- NOTE | 2019-02-15 08:24 | Internal Med Progress Note ---
Hospitalist Progress Note - Encounter Date of Encounter: 02/15/19 Time of Encounter: 11:00 - Subjective Interval History: Patient is a 58-year-old female with past medical history significant for MRDD, chronic hypoxic and hypercapnic respiratory failure, COPD, morbid obesity and severe obstructive sleep apnea who presents from the detention/[facility] due to increased use of O2 supplementation and hypoxia found to be in acute on chronic hypoxic/hypercapnic respiratory failure. Patient did not tolerate BiPAP overnight so currently on oxygen mask. - Exam Vitals: Temp Pulse Resp BP Pulse Ox 98.3 F 109 18 109/58 92 02/15/19 07:47 02/15/19 07:47 02/15/19 07:47 02/15/19 07:47 02/15/19 07:47 Exam: Gen.: Nonacute distress, alert and oriented 3 ENT: Mucosal membranes moist Respiratory: Lungs are clear to auscultation bilaterally without any wheezing rhonchi or rales Cardiovascular: Normal S1 and S2 regular rate rhythm no murmurs rubs or gallops Abdomen: Soft, nontender and nondistended with positive bowel sounds Extremities: No lower extremity edema Skin: Normal color - Assessment and Plan (1) Acute on chronic respiratory failure with hypoxia and hypercapnia Current Visit: No Status: Acute Assessment and Plan: Patient presents from the detention/ECF due to increased need for O2 supplementation and hypoxia. On admission, patient was found to be an acute on chronic hypoxic/hypercapnic respiratory failure ABG showing a pH of 7.28 and a PCO2 of 87. Patient afebrile, without leukocytosis and chest X-ray showed no acute findings. Patient did not tolerate BiPAP overnight so currently on oxygen mask. Repeat ABG and respiratory panel ordered Will continue IV Solu-Medrol and scheduled [facility] Pulmonology consulted and appreciate recommendations (2) COPD exacerbation Current Visit: Yes Status: Acute Assessment and Plan: Patient apparently is allergic to beclomethasone so not able to give Solu- Medrol. Will continue scheduled dual [facility] Pulmonology consulted for recommendations as above (3) Hyperlipidemia Current Visit: No Status: Chronic Assessment and Plan: Resume home medications (4) Hypothyroidism Current Visit: No Status: Chronic Assessment and Plan: Resume home medications (5) Morbidly obese Current Visit: No Status: Chronic Assessment and Plan: BMI of 40.2 (6) Developmental delay, severe Current Visit: No Status: Chronic Assessment and Plan: Patient for history MRDD (7) Mood disorder Current Visit: Yes Status: Acute Assessment and Plan: Resume home medications DVT Prophylaxis: SCDs - Time Spent with Patient Total time spent is greater than 50% in coordination of care (as documented) at patient's floor/unit and/or counseling patient: Internal Medicine: Result - Labs CBC & Chem 7: 02/15/19 04:02 02/15/19 04:02 Labs: Short CBC 02/14/19 02/15/19 Range/Units 14:15 04:02 WBC 6.5 7.3 (4.3-11.1) K/mcL Hgb 13.0 12.8 (11.5-15.4) g/dL Hct 42.0 41.6 (35.3-44.9) % Plt Count 135 L 154 (140-400) K/mcL Neutrophils # 2.3 3.4 (1.6-8.9) K/mcL BMP 02/14/19 02/15/19 14:15 04:02 Sodium 142 145 Potassium 4.2 4.3 Chloride 100 100 Carbon Dioxide 39 H 38 H BUN 12 11 Creatinine 0.62 0.52 L Glucose 203 H 97 Calcium 8.7 8.4 L Cardiac Enzymes 02/14/19 Range/Units 14:15 Troponin I < 0.03 (< 0.04) ng/mL - ABG Interpretation ABG results: ABG ABG pH 7.29 pH Units (7.32-7.45) L 02/15/19 00:04 ABG pCO2 88 mmHg (35-45) H* 02/15/19 00:04 ABG pO2 90 mmHg (85-104) 02/15/19 00:04 ABG O2 Saturation 95 % (95-98) 02/15/19 00:04 PT/INR, D-dimer 420 ng/mLFEU (0-500) 02/14/19 14:15 - Impressions Impressions Chest X-Ray 02/14/19 14:07 IMPRESSION: No acute process. D/ / 02/14/2019 14:47:57 Dante Lee MD / Hannah Logan Interpreting Provider: Dante Lee MD Consult Discharge Plan - Plan Referrals: NONE,PCP [Primary Care Provider] - (3) Hyperlipidemia Qualifiers: Hyperlipidemia type: unspecified Qualified Code(s): E78.5 - Hyperlipidemia, unspecified (4) Hypothyroidism Qualifiers: Hypothyroidism type: unspecified Qualified Code(s): E03.9 - Hypothyroidism, unspecified
[2019-02-15 10:18] LABS: Adenovirus Not Detected (Not Detect); Bordetella Pertussis Not Detected (Not Detect); Chlamydophila pneumoniae Not Detected (Not Detect); Coronavirus 229E Not Detected (Not Detect); Coronavirus HKU1 Not Detected (Not Detect); Coronavirus NL63 Not Detected (Not Detect); Coronavirus OC43 Not Detected (Not Detect); Human Metapneumovirus Not Detected (Not Detect); Human Rhinovirus/Enterovirus Not Detected (Not Detect); Influenza A Subtype 2009 H1 Not Detected (Not Detect); Influenza A Untypeable Not Detected (Not Detect); Influenza B Not Detected (Not Detect); Mycoplasma pneumoniae Not Detected (Not Detect); Parainfluenza Virus 1 Not Detected (Not Detect); Parainfluenza Virus 2 Not Detected (Not Detect); Parainfluenza Virus 3 Not Detected (Not Detect); Parainfluenza Virus 4 Not Detected (Not Detect); Respiratory Syncytial Virus Not Detected (Not Detect)
[2019-02-15 10:49] LABS: ABG Base Excess 13 mEq/L (-2 to 3); ABG HCO3 42 mEq/L (21-27); ABG Oxygen Saturation 95 % (95-98); ABG PCO2 74 mmHg (35-45); ABG PH 7.37 pH Units (7.32-7.45); ABG PO2 82 mmHg (85-104); ABG TCO2 44 mEq/L (20-26)
--- NOTE | 2019-02-15 16:20 | Electrocardiograph Report ---
[email or web address] Test Date: 2019-02-14 Pat Name: Katya Guzman Department: EXAM5 Room: 2A25 Gender: F Palliative Senior Np: : 1960 Requested By: Atul Hampton Order Number: [id number] Reading MD: Ramses Rowe Measurements Intervals [place] Rate: 92 P: 40 [place]: 159 QRS: 20 QRSD: 86 T: 67 QT: 374 QTc: 463 Interpretive Statements Sinus rhythm Low voltage, precordial leads Abnormal R-wave progression, early transition Electronically Signed On 02-15-2019 16:19:13 EDT by Ramses Rowe
[2019-02-15] MEDS ORDERED: SIMBRINZA OP SCH (21:00)
[2019-02-15] MEDS ORDERED: BETOPTIC S OP SCH (21:00)
[2019-02-15] MEDS ORDERED: EYE OP SCH (21:00)
[2019-02-15] MEDS ORDERED: (Icosapent Ethyl [Vascepa] 1 GM) PO SCH (21:00)
[2019-02-15] MEDS ORDERED: Furosemide 40 MG TABLET PO SCH (22:00)
[2019-02-15] MEDS: Divalproex (12 HR) 500 MG TABLET PO SCH ×2 (23:08→23:39)
[2019-02-15] MEDS: clonazePAM 0.5 MG TABLET PO SCH (23:08)
[2019-02-16] MEDS: PrednisoLONE Acetate 1% Opth 5 ML BOTTLE RIGHT EYE SCH ×3 (01:20→21:42)
[2019-02-16] MEDS: Valproic Acid Oral Soln 250 MG/5 ML UDC PO SCH ×3 (01:20→21:38)
[2019-02-16] MEDS: Latanoprost 2.5 ML BOTTLE RIGHT EYE SCH ×2 (01:23→21:42)
[2019-02-16] MEDS: Ipratropium/Albuterol Neb 3 ML IH SCH ×7 (04:07→23:13)
[2019-02-16] MEDS: Budesonide/Formoterol 160/4.5 1 PUFF INH IH SCH ×2 (07:19→19:27)
[2019-02-16 07:28] LABS: Eosinophils # 0.2 K/mcL (0.0-0.6); Hematocrit 41.1 % (35.3-44.9); Hemoglobin 12.7 g/dL (11.5-15.4); Mean Corpuscular HGB Conc 30.9 g/dL (31.6-35.5); Mean Corpuscular Hemoglobin 29.6 pg (28.0-33.3); Mean Corpuscular Volume 95.8 fL (83.0-100.0); Mean Platelet Volume 9.1 fL (9.4-12.4); Platelet Count 146 K/mcL (140-400); Red Blood Count 4.29 M/mcL (3.82-4.97); Red Cell Distribution Width 12.7 % (11.5-14.5)
[2019-02-16 07:50] LABS: BUN/Creatinine Ratio 23 (6-26); Blood Urea Nitrogen 14 mg/dL (6-20); Calcium 8.5 mg/dL (8.6-10.3); Carbon Dioxide 37 mEq/L (23-29); Chloride 99 mEq/L (98-107); Glucose 148 mg/dL (70-105); Osmolality,Calculated 297 (280-300); Potassium 4.1 mEq/L (3.5-5.1); Sodium 142 mEq/L (136-145); eGFR For Non-African Americans > 60 (> 60)
[2019-02-16 08:51] LABS: Lymphocytes # 2.4 K/mcL (0.6-4.6); Monocytes # 0.6 K/mcL (0.0-1.3); Neutrophils # 2.8 K/mcL (1.6-8.9)
[2019-02-16 08:52] LABS: Platelet Estimate Normal (Normal); Reactive Lymphocytes Present (Not Present)
[2019-02-16] MEDS: Aspirin Enteric Coated 81 MG Tablet PO SCH (09:06)
[2019-02-16] MEDS: Loratadine 10 MG TABLET PO SCH (09:06)
[2019-02-16] MEDS: Multivit/Ca/Min/Fe/FA 1 TAB TABLET PO SCH (09:06)
[2019-02-16] MEDS: cloZAPine 25 MG TABLET PO SCH ×2 (09:06→21:38)
[2019-02-16] MEDS: Cholecalciferol (D-3) 1,000 UNIT TABLET PO SCH (09:06)
[2019-02-16] MEDS: Brinzolamide 1% 10 ML BOTTLE RIGHT EYE SCH ×2 (10:04→21:40)
[2019-02-16] MEDS: Furosemide 40 MG TABLET PO SCH ×2 (10:04→17:00)
--- NOTE | 2019-02-16 15:22 | Internal Med Progress Note ---
Hospitalist Progress Note - Encounter Date of Encounter: 02/16/19 Time of Encounter: 15:18 - Subjective Interval History: I have seen and evaluated the patient at bedside. patient reports still having some difficulty with her breathing but better than when she presented to the ED. denies chest pain, nausea, vomiting or abdominal pain. - Exam Vitals: Temp Pulse Resp BP Pulse Ox 97.9 F 87 18 129/78 91 02/16/19 11:26 02/16/19 11:02/16/19 11:02/16/19 11:02/16/19 11:26 Exam: Vitals: Reviewed General: Morbidly obese, Alert and oriented x3. In no distress Skin: Normal color, no rash, no lesions. HEENT: EOM, pupils equal, round and reactive. Cardiovascular: RRR, normal S1 & S2, no rubs, murmurs or gallops. No JVD. Pulse regular. Lungs: mild scattered b/l expiratory wheezes, no rales or crackles. Abdomen: Obese, soft, non-tender, no rigidity. Extremities: No edema Neurological: No focal neurological abnormalities Rest of the physical exam is non contributory - Assessment and Plan (1) Acute on chronic respiratory failure with hypoxia and hypercapnia Current Visit: No Status: Acute Assessment and Plan: Patient on 4 L of oxygen by nasal cannula, titrate for O2 sat duration more than 88%. nocturnal BiPAP. not on steroids due to allergies, continue bronchodilators. incentive spirometry. (2) Hyperlipidemia Current Visit: No Status: Chronic Assessment and Plan: Patient is on atorvastatin 40 mg by mouth at bedtime. (3) Morbidly obese Current Visit: No Status: Chronic (4) Hypothyroidism Current Visit: No Status: Chronic Assessment and Plan: Levothyroxine 112 mcg/PO daily (5) Developmental delay, severe Current Visit: No Status: Chronic (6) COPD exacerbation Current Visit: Yes Status: Acute Assessment and Plan: Plan of care as per problem #1. (7) Mood disorder Current Visit: Yes Status: Acute Assessment and Plan: Patient with a history of bipolar disorder. On clonazepam, and clozapine. Continue valproic acid 350 mg by mouth twice a day. (8) Hypertension Current Visit: Yes Status: Chronic Assessment and Plan: Blood pressures well controlled on furosemide and propranolol. DVT Prophylaxis: heparin subQ - Time Spent with Patient Total time spent is greater than 50% in coordination of care (as documented) at patient's floor/unit and/or counseling patient: Greater than 35 minutes (40) Plan of Care Discussed with: nurse Internal Medicine: Result - Labs CBC & Chem 7: 02/16/19 07:18 02/16/19 07:18 Labs: Short CBC 02/16/19 Range/Units 07:18 WBC 5.9 (4.3-11.1) K/mcL Hgb 12.7 (11.5-15.4) g/dL Hct 41.1 (35.3-44.9) % Plt Count 146 (140-400) K/mcL Neutrophils # 2.8 (1.6-8.9) K/mcL BMP 02/16/19 07:18 Sodium 142 Potassium 4.1 Chloride 99 Carbon Dioxide 37 H BUN 14 Creatinine 0.62 Glucose 148 H Calcium 8.5 L - ABG Interpretation ABG results: ABG ABG pH 7.37 pH Units (7.32-7.45) 02/15/19 10:41 ABG pCO2 74 mmHg (35-45) H* 02/15/19 10:41 ABG pO2 82 mmHg (85-104) L 02/15/19 10:41 ABG O2 Saturation 95 % (95-98) 02/15/19 10:41 PT/INR, D-dimer 420 ng/mLFEU (0-500) 02/14/19 14:15 - VTE Documentation of Mechanical Device: Intermittent pneumatic compression device Consult Discharge Plan - Plan Referrals: NONE,PCP [Primary Care Provider] - (2) Hyperlipidemia Qualifiers: Hyperlipidemia type: unspecified Qualified Code(s): E78.5 - Hyperlipidemia, unspecified (4) Hypothyroidism Qualifiers: Hypothyroidism type: unspecified Qualified Code(s): E03.9 - Hypothyroidism, unspecified (8) Hypertension Qualifiers: Hypertension type: unspecified Qualified Code(s): I10 - Essential (primary) hypertension
[2019-02-16] MEDS: clonazePAM 0.5 MG TABLET PO SCH (21:38)
[2019-02-16] MEDS: *HR* Heparin 5,000 UNIT/ML VIAL SQ SCH (21:39)
[2019-02-17] MEDS: Ipratropium/Albuterol Neb 3 ML IH SCH ×5 (03:22→19:53)
[2019-02-17] MEDS: *HR* Heparin 5,000 UNIT/ML VIAL SQ SCH ×3 (05:30→22:33)
[2019-02-17] MEDS: Budesonide/Formoterol 160/4.5 1 PUFF INH IH SCH ×2 (07:25→19:53)
[2019-02-17] MEDS: Aspirin Enteric Coated 81 MG Tablet PO SCH (09:27)
[2019-02-17] MEDS: Furosemide 40 MG TABLET PO SCH ×2 (09:27→17:03)
[2019-02-17] MEDS: Loratadine 10 MG TABLET PO SCH (09:27)
[2019-02-17] MEDS: cloZAPine 25 MG TABLET PO SCH ×2 (09:28→22:33)
[2019-02-17] MEDS: Cholecalciferol (D-3) 1,000 UNIT TABLET PO SCH (09:29)
[2019-02-17] MEDS: Valproic Acid Oral Soln 250 MG/5 ML UDC PO SCH ×2 (09:29→22:44)
[2019-02-17] MEDS: PrednisoLONE Acetate 1% Opth 5 ML BOTTLE RIGHT EYE SCH ×2 (09:30→22:38)
[2019-02-17] MEDS: Brinzolamide 1% 10 ML BOTTLE RIGHT EYE SCH ×2 (09:30→22:37)
[2019-02-17] MEDS: Multivit/Ca/Min/Fe/FA 1 TAB TABLET PO SCH (09:31)
--- NOTE | 2019-02-17 12:59 | Internal Med Progress Note ---
Hospitalist Progress Note - Encounter Date of Encounter: 02/17/19 Time of Encounter: 12:57 - Subjective Interval History: I have seen and evaluated the patient at bedside. She reports still feeling short of breath, denies chest pain, nausea or vomiting. Denies abdominal pain. - Exam Vitals: Temp Pulse Resp BP Pulse Ox 98.0 F 88 18 119/69 95 02/17/19 11:58 02/17/19 11:58 02/17/19 11:58 02/17/19 11:58 02/17/19 11:58 Exam: Vitals: Reviewed General: Morbidly obese, Alert and oriented x3. In no distress Cardiovascular: RRR, normal S1 & S2, no rubs, murmurs or gallops. No JVD. Pulse regular. Lungs: Bronchospastic, scattered b/l expiratory wheezes, no rales or crackles. Abdomen: Obese, soft, non-tender, no rigidity. Extremities: No edema Neurological: No focal neurological abnormalities Rest of the physical exam is non contributory - Assessment and Plan (1) Acute on chronic respiratory failure with hypoxia and hypercapnia Current Visit: No Status: Acute Assessment and Plan: Patient bronchospastic, and scattered b/l expiratory wheezing. Plan will add azithromycin 500mg/PO daily methyl-prednisolone 40mg/IV Q8HRs On Symbicort. continue scheduled bronchodilators Q4RT incentive spirometry Continue n 4 L of oxygen by nasal cannula, titrate for O2 sat duration more than 88%. nocturnal BiPAP. (2) Hyperlipidemia Current Visit: No Status: Chronic Assessment and Plan: Continue atorvastatin 40 mg by mouth daily. (3) Hypothyroidism Current Visit: No Status: Chronic Assessment and Plan: On levothyroxine 112 mcg/PO daily (4) Developmental delay, severe Current Visit: No Status: Chronic (5) COPD exacerbation Current Visit: Yes Status: Acute Assessment and Plan: Plan of care as per problem #1. (6) Mood disorder Current Visit: Yes Status: Acute Assessment and Plan: Patient with a history of bipolar disorder. Plan Continue clonazepam, and clozapine. on valproic acid 350 mg by mouth twice a day. (7) Hypertension Current Visit: Yes Status: Chronic Assessment and Plan: Blood pressure has been well controlled on furosemide 40 mg by mouth twice a day. And propranolol. (8) Morbidly obese Current Visit: No Status: Chronic (9) CHF (congestive heart failure) Current Visit: Yes Status: Chronic Assessment and Plan: Unspecified type of CHF. Last echocardiogram estimated ejection fraction was 60%, with indeterminate diastolic dysfunction. And grossly normal right ventricular function. Based on the echocardiogram and the clinical findings I do not agree with a diagnosis of congestive heart failure for this patient. (10) Essential tremor Current Visit: Yes Status: Chronic Assessment and Plan: Patient is on propranolol 20 mg by mouth daily. DVT Prophylaxis: On heparin subcutaneous. - Summary of Assessment and Plan Summary of Assessment and Plan: Patient to remain in the hospital due to COPD exacerbation, and high-dose IV steroids. Bronchospastic. - Time Spent with Patient Total time spent is greater than 50% in coordination of care (as documented) at patient's floor/unit and/or counseling patient: Greater than 35 minutes (40) Plan of Care Discussed with: patient (and the nurse) Internal Medicine: Result - Labs CBC & Chem 7: 02/16/19 07:18 02/16/19 07:18 - ABG Interpretation ABG results: ABG ABG pH 7.37 pH Units (7.32-7.45) 02/15/19 10:41 ABG pCO2 74 mmHg (35-45) H* 02/15/19 10:41 ABG pO2 82 mmHg (85-104) L 02/15/19 10:41 ABG O2 Saturation 95 % (95-98) 02/15/19 10:41 PT/INR, D-dimer 420 ng/mLFEU (0-500) 02/14/19 14:15 - VTE Documentation of Mechanical Device: Intermittent pneumatic compression device Consult Discharge Plan - Plan Referrals: NONE,PCP [Primary Care Provider] - (2) Hyperlipidemia Qualifiers: Hyperlipidemia type: unspecified Qualified Code(s): E78.5 - Hyperlipidemia, unspecified (3) Hypothyroidism Qualifiers: Hypothyroidism type: unspecified Qualified Code(s): E03.9 - Hypothyroidism, unspecified (7) Hypertension Qualifiers: Hypertension type: unspecified Qualified Code(s): I10 - Essential (primary) hypertension (9) CHF (congestive heart failure) Qualifiers: Heart failure type: unspecified Heart failure chronicity: chronic Qualified Code(s): I50.9 - Heart failure, unspecified
[2019-02-17] MEDS: Azithromycin 250 MG TABLET PO SCH (13:15)
[2019-02-17] MEDS: MethylPREDNISolone 40 MG/ML VIAL IVP SCH ×2 (13:15→22:34)
[2019-02-17] MEDS: clonazePAM 0.5 MG TABLET PO SCH (22:32)
[2019-02-17] MEDS: Latanoprost 2.5 ML BOTTLE RIGHT EYE SCH (22:38)
[2019-02-18] MEDS: Ipratropium/Albuterol Neb 3 ML IH SCH ×6 (00:09→20:02)
[2019-02-18 03:09] LABS: BUN/Creatinine Ratio 24 (6-26); Blood Urea Nitrogen 18 mg/dL (6-20); Carbon Dioxide 32 mEq/L (23-29); Chloride 99 mEq/L (98-107); Glucose 262 mg/dL (70-105); Magnesium 1.8 mg/dL (1.6-2.6); Osmolality,Calculated 305 (280-300); Phosphorous 2.1 mg/dL (2.7-4.5); Potassium 4.2 mEq/L (3.5-5.1); Sodium 142 mEq/L (136-145); eGFR For Non-African Americans > 60 (> 60)
[2019-02-18] MEDS: *HR* Heparin 5,000 UNIT/ML VIAL SQ SCH ×3 (06:11→22:37)
[2019-02-18] MEDS: Budesonide/Formoterol 160/4.5 1 PUFF INH IH SCH ×2 (07:31→20:02)
[2019-02-18] MEDS: Valproic Acid Oral Soln 250 MG/5 ML UDC PO SCH ×2 (08:25→22:34)
[2019-02-18] MEDS: Aspirin Enteric Coated 81 MG Tablet PO SCH (08:25)
[2019-02-18] MEDS: Multivit/Ca/Min/Fe/FA 1 TAB TABLET PO SCH (08:25)
[2019-02-18] MEDS: Loratadine 10 MG TABLET PO SCH (08:25)
[2019-02-18] MEDS: Cholecalciferol (D-3) 1,000 UNIT TABLET PO SCH (08:25)
[2019-02-18] MEDS: Furosemide 40 MG TABLET PO SCH ×2 (08:25→17:32)
[2019-02-18] MEDS: Azithromycin 250 MG TABLET PO SCH (08:25)
[2019-02-18] MEDS: MethylPREDNISolone 40 MG/ML VIAL IVP SCH ×3 (08:26→22:44)
[2019-02-18] MEDS: Brinzolamide 1% 10 ML BOTTLE RIGHT EYE SCH ×2 (08:27→22:41)
[2019-02-18] MEDS: PrednisoLONE Acetate 1% Opth 5 ML BOTTLE RIGHT EYE SCH ×2 (08:28→22:41)
[2019-02-18] MEDS: cloZAPine 25 MG TABLET PO SCH ×2 (08:36→22:36)
[2019-02-18] MEDS ORDERED: Dextrose Gel 15 GM/37.5 ML TUBE PO PRN ×2 (10:51)
[2019-02-18] MEDS ORDERED: *HR* Dextrose 50 % in Water (Syg) 50 ML SYRINGE IVP PRN (10:51)
[2019-02-18] MEDS ORDERED: D5% in Water 1,000 ML IVC PRN (10:51)
--- NOTE | 2019-02-18 10:57 | Internal Med Progress Note ---
Hospitalist Progress Note - Encounter Date of Encounter: 02/18/19 Time of Encounter: 10:54 - Subjective Interval History: I have seen and evaluated the patient at bedside. Patient reports that today she feels somnolent, drowsy. Denies chest pain, nausea, vomiting. Reports improvement in her shortness of breath. - Exam Vitals: Temp Pulse Resp BP Pulse Ox 97.9 F 90 22 124/70 93 02/18/19 07:33 02/18/19 07:33 02/18/19 07:33 02/18/19 07:02/18/19 07:33 Exam: Vitals: Reviewed General: Morbidly obese, Alert and oriented x3. In mild distress due to drowsiness Cardiovascular: RRR, normal S1 & S2, no rubs, murmurs or gallops. No JVD. Pulse regular. Lungs: Bronchospastic, mild scattered b/l expiratory wheezes, no rales or crackles. Abdomen: Obese, soft, non-tender, no rigidity. NABS in all 4 quadrants. Extremities: No edema Neurological: No focal neurological abnormalities Rest of the physical exam is non contributory - Assessment and Plan (1) Acute on chronic respiratory failure with hypoxia and hypercapnia Current Visit: No Status: Acute Assessment and Plan: Bronchospastic on auscultation, with scatter bilateral wheezing. Patient still requiring 6 L of oxygen to keep O2 sat duration more than 88% Plan Increase with the prednisone to 60mg/IV Q8HRs x 24 hours Continue azithromycin 500 mg by mouth daily On bronchodilators every 4 hours as scheduled. On Symbicort Standby BiPAP We will repeat ABG as patient is complaining of feeling drowsy. (2) Hyperlipidemia Current Visit: No Status: Chronic Assessment and Plan: On statin. (3) Hypothyroidism Current Visit: No Status: Chronic Assessment and Plan: On levothyroxine 112 mcg/PO daily (4) Developmental delay, severe Current Visit: No Status: Chronic (5) COPD exacerbation Current Visit: Yes Status: Acute Assessment and Plan: Plan of care as per problem #1. (6) Mood disorder Current Visit: Yes Status: Acute Assessment and Plan: Continue clonazepam, and clozapine. on valproic acid 350 mg by mouth twice a day. (7) Hypertension Current Visit: Yes Status: Chronic Assessment and Plan: Blood pressure is well controlled on furosemide 40 mg by mouth twice a day. (8) Morbidly obese Current Visit: No Status: Chronic (9) CHF (congestive heart failure) Current Visit: Yes Status: Suspected (10) Essential tremor Current Visit: Yes Status: Chronic Assessment and Plan: On propranolol 20 mg by mouth daily. (11) Hypophosphatemia Current Visit: Yes Status: Acute Assessment and Plan: Electrolytes being replaced. We will repeat electrolyte level tomorrow morning. (12) Pre-diabetes Current Visit: Yes Status: Acute Assessment and Plan: Patient with hyperglycemia likely secondary to steroids. Started on lispro medium dose sliding scale before meals. Levemir 5 unit at bedtime added. DVT Prophylaxis: On heparin 5000 units subcutaneous every 8 hours. - Summary of Assessment and Plan Summary of Assessment and Plan: Patient to remain in the hospital due to COPD exacerbation. On high dose of IV steroids. Potential discharge tomorrow morning. - Time Spent with Patient Total time spent is greater than 50% in coordination of care (as documented) at patient's floor/unit and/or counseling patient: Greater than 35 minutes (40) Plan of Care Discussed with: nurse Internal Medicine: Result - Labs CBC & Chem 7: 02/16/19 07:18 02/18/19 01:34 Labs: BMP 02/18/19 01:34 Sodium 142 Potassium 4.2 Chloride 99 Carbon Dioxide 32 H BUN 18 Creatinine 0.76 Glucose 262 H Calcium 9.0 - ABG Interpretation ABG results: ABG ABG pH 7.37 pH Units (7.32-7.45) 02/15/19 10:41 ABG pCO2 74 mmHg (35-45) H* 02/15/19 10:41 ABG pO2 82 mmHg (85-104) L 02/15/19 10:41 ABG O2 Saturation 95 % (95-98) 02/15/19 10:41 PT/INR, D-dimer 420 ng/mLFEU (0-500) 02/14/19 14:15 - VTE Documentation of Mechanical Device: Intermittent pneumatic compression device Consult Discharge Plan - Plan Referrals: NONE,PCP [Primary Care Provider] - (2) Hyperlipidemia Qualifiers: Hyperlipidemia type: unspecified Qualified Code(s): E78.5 - Hyperlipidemia, unspecified (3) Hypothyroidism Qualifiers: Hypothyroidism type: unspecified Qualified Code(s): E03.9 - Hypothyroidism, unspecified (7) Hypertension Qualifiers: Hypertension type: unspecified Qualified Code(s): I10 - Essential (primary) hypertension (9) CHF (congestive heart failure) Qualifiers: Heart failure type: unspecified Heart failure chronicity: chronic Qualified Code(s): I50.9 - Heart failure, unspecified
[2019-02-18 11:40] LABS: ABG Base Excess 9 mEq/L (-2 to 3); ABG HCO3 36 mEq/L (21-27); ABG Oxygen Saturation 91 % (95-98); ABG PCO2 56 mmHg (35-45); ABG PH 7.41 pH Units (7.32-7.45); ABG PO2 62 mmHg (85-104); ABG TCO2 37 mEq/L (20-26)
[2019-02-18] MEDS: Insulin LISPRO 300 UNITS/3 ML VIAL SQ SCH ×2 (12:11→17:15)
[2019-02-18] MEDS: Insulin DETEMIR 100 UNIT/ML X5UNITS SQ SCH (22:34)
[2019-02-18] MEDS: clonazePAM 0.5 MG TABLET PO SCH (22:35)
[2019-02-18] MEDS: Latanoprost 2.5 ML BOTTLE RIGHT EYE SCH (22:42)
[2019-02-19] MEDS: Ipratropium/Albuterol Neb 3 ML IH SCH ×6 (00:17→19:52)
[2019-02-19 02:41] LABS: BUN/Creatinine Ratio 41 (6-26); Blood Urea Nitrogen 29 mg/dL (6-20); Calcium 8.8 mg/dL (8.6-10.3); Carbon Dioxide 32 mEq/L (23-29); Chloride 98 mEq/L (98-107); Glucose 201 mg/dL (70-105); Magnesium 1.9 mg/dL (1.6-2.6); Osmolality,Calculated 308 (280-300); Phosphorous 4.3 mg/dL (2.7-4.5); Potassium 4.1 mEq/L (3.5-5.1); Sodium 143 mEq/L (136-145); eGFR For Non-African Americans > 60 (> 60)
[2019-02-19] MEDS: *HR* Heparin 5,000 UNIT/ML VIAL SQ SCH ×3 (06:03→21:31)
[2019-02-19] MEDS: Budesonide/Formoterol 160/4.5 1 PUFF INH IH SCH ×2 (07:26→19:52)
[2019-02-19] MEDS: Brinzolamide 1% 10 ML BOTTLE RIGHT EYE SCH ×2 (08:46→21:27)
[2019-02-19] MEDS: PrednisoLONE Acetate 1% Opth 5 ML BOTTLE RIGHT EYE SCH ×2 (08:46→21:32)
[2019-02-19] MEDS: Valproic Acid Oral Soln 250 MG/5 ML UDC PO SCH ×2 (08:47→21:26)
[2019-02-19] MEDS: MethylPREDNISolone 40 MG/ML VIAL IVP SCH (08:48)
[2019-02-19] MEDS: Furosemide 40 MG TABLET PO SCH ×2 (08:49→17:40)
[2019-02-19] MEDS: Cholecalciferol (D-3) 1,000 UNIT TABLET PO SCH (08:49)
[2019-02-19] MEDS: Aspirin Enteric Coated 81 MG Tablet PO SCH (08:49)
[2019-02-19] MEDS: cloZAPine 25 MG TABLET PO SCH ×2 (08:49→21:26)
[2019-02-19] MEDS: Loratadine 10 MG TABLET PO SCH (08:49)
[2019-02-19] MEDS: Multivit/Ca/Min/Fe/FA 1 TAB TABLET PO SCH (08:49)
[2019-02-19] MEDS: Azithromycin 250 MG TABLET PO SCH (08:53)
[2019-02-19] MEDS: Insulin LISPRO 300 UNITS/3 ML VIAL SQ SCH ×3 (08:53→17:40)
--- NOTE | 2019-02-19 11:12 | Internal Med Progress Note ---
Hospitalist Progress Note - Encounter Date of Encounter: 02/19/19 Time of Encounter: 11:09 - Subjective Interval History: I have seen and evaluate the patient at bedside. patient denies any complain today, denies chest pain, shortness of breath, nausea or vomiting. as per nurse report the patient has been requiring 5 litters of O2 by nasal cannula for an O2Sat >88%. - Exam Vitals: Temp Pulse Resp BP Pulse Ox 98.3 F 80 20 112/67 92 02/19/19 08:07 02/19/19 08:07 02/19/19 08:07 02/19/19 08:07 02/19/19 09:19 Exam: Vitals: Reviewed General: Morbidly obese, Alert and oriented x3. No acute distress Cardiovascular: RRR, normal S1 & S2, no rubs, murmurs or gallops. No JVD. Pulse regular. Lungs: Good air entry b/l, no wheezes, rales or crackles. Abdomen: Obese, soft, non-tender, no rigidity. NABS in all 4 quadrants. Extremities: No edema Neurological: No focal neurological abnormalities Rest of the physical exam is non contributory - Assessment and Plan (1) Acute on chronic respiratory failure with hypoxia and hypercapnia Current Visit: No Status: Acute Assessment and Plan: patient on 5 litters of O2, by nasal cannula. will titrated O2 requirement to 4-3 litters and monitor O2Sat Alternate BiPaP with nasal cannula nocturnal BiPap on bronchodilators Q4RT scheduled. symbicort decrease methyl-sulomedrol to 60mg/Iv BID on azithromycin 500mg/PO daily (2) Hyperlipidemia Current Visit: No Status: Chronic Assessment and Plan: atorvastatin 40mg/PO HS (3) Hypothyroidism Current Visit: No Status: Chronic Assessment and Plan: Levothyroxine 112 mcg/PO daily home dose (4) Developmental delay, severe Current Visit: No Status: Chronic (5) COPD exacerbation Current Visit: Yes Status: Acute Assessment and Plan: plan of care as per problem #1 (6) Mood disorder Current Visit: Yes Status: Acute Assessment and Plan: On clonazepam, clozapine. and valproic acid 350 mg by mouth twice a day. (7) Hypertension Current Visit: Yes Status: Chronic Assessment and Plan: BP is well controlled. Patient is on furosemide 40mg/PO BID and propranolol (8) Morbidly obese Current Visit: No Status: Chronic (9) CHF (congestive heart failure) Current Visit: Yes Status: Suspected (10) Essential tremor Current Visit: Yes Status: Chronic Assessment and Plan: Continue propranolol 20 mg by mouth daily. (11) Hypophosphatemia Current Visit: Yes Status: Resolved (12) Pre-diabetes Current Visit: Yes Status: Acute Assessment and Plan: Blood sugar is sub-optimally controlled. will continue current insulin coverage. Steroids have been decreased. carbs controlled diet DVT Prophylaxis: Heparin subQ - Summary of Assessment and Plan Summary of Assessment and Plan: Patient to remain in the hospital due to hypoxemic respiratory failure, still requiring 4-5 litters of O2 by nasal cannula to keep an O2Sat >88%. Potential discharge tomorrow - Time Spent with Patient Total time spent is greater than 50% in coordination of care (as documented) at patient's floor/unit and/or counseling patient: Greater than 35 minutes (40) Plan of Care Discussed with: nurse Internal Medicine: Result - Labs CBC & Chem 7: 02/16/19 07:18 02/19/19 02:07 Labs: BMP 02/19/19 02:07 Sodium 143 Potassium 4.1 Chloride 98 Carbon Dioxide 32 H BUN 29 H Creatinine 0.71 Glucose 201 H Calcium 8.8 - ABG Interpretation ABG results: ABG ABG pH 7.41 pH Units (7.32-7.45) 02/18/19 11:37 ABG pCO2 56 mmHg (35-45) H 02/18/19 11:37 ABG pO2 62 mmHg (85-104) L 02/18/19 11:37 ABG O2 Saturation 91 % (95-98) L 02/18/19 11:37 PT/INR, D-dimer 420 ng/mLFEU (0-500) 02/14/19 14:15 - VTE Documentation of Mechanical Device: Intermittent pneumatic compression device Consult Discharge Plan - Plan Referrals: NONE,PCP [Primary Care Provider] - (2) Hyperlipidemia Qualifiers: Hyperlipidemia type: unspecified Qualified Code(s): E78.5 - Hyperlipidemia, unspecified (3) Hypothyroidism Qualifiers: Hypothyroidism type: unspecified Qualified Code(s): E03.9 - Hypothyroidism, unspecified (7) Hypertension Qualifiers: Hypertension type: unspecified Qualified Code(s): I10 - Essential (primary) hypertension (9) CHF (congestive heart failure) Qualifiers: Heart failure type: unspecified Heart failure chronicity: chronic Qualified Code(s): I50.9 - Heart failure, unspecified
[2019-02-19] MEDS: methylPREDNISolone 125 MG/2 ML VIAL IVP SCH (17:40)
[2019-02-19] MEDS: clonazePAM 0.5 MG TABLET PO SCH (21:26)
[2019-02-19] MEDS: Insulin DETEMIR 100 UNIT/ML X5UNITS SQ SCH (21:31)
[2019-02-19] MEDS: Latanoprost 2.5 ML BOTTLE RIGHT EYE SCH (21:32)
[2019-02-20] MEDS: Ipratropium/Albuterol Neb 3 ML IH SCH ×4 (00:17→11:10)
[2019-02-20] MEDS: *HR* Heparin 5,000 UNIT/ML VIAL SQ SCH (05:24)
[2019-02-20] MEDS: methylPREDNISolone 125 MG/2 ML VIAL IVP SCH (05:24)
[2019-02-20] MEDS: Budesonide/Formoterol 160/4.5 1 PUFF INH IH SCH (07:26)
[2019-02-20 07:52] LABS: Basophils % 0.2 %; Hematocrit 36.8 % (35.3-44.9); Hemoglobin 11.9 g/dL (11.5-15.4); Immature Granulocytes % 1.4 % (0-4); Lymphocytes # 2.8 K/mcL (0.6-4.6); Lymphocytes % 18.7 %; Mean Corpuscular HGB Conc 32.3 g/dL (31.6-35.5); Mean Corpuscular Hemoglobin 29.8 pg (28.0-33.3); Mean Platelet Volume 10.4 fL (9.4-12.4); Monocytes # 1.1 K/mcL (0.0-1.3); Monocytes % 7.5 %; Nucleated Red Blood Cells 0.5 /100 WBC (0); Platelet Count 225 K/mcL (140-400); Red Cell Distribution Width 12.9 % (11.5-14.5); Segmented Neutrophils % 72.2 %
[2019-02-20 08:00] LABS: Neutrophils # 10.8 K/mcL (1.6-8.9)
[2019-02-20 08:13] LABS: BUN/Creatinine Ratio 54 (6-26); Blood Urea Nitrogen 34 mg/dL (6-20); Calcium 8.6 mg/dL (8.6-10.3); Carbon Dioxide 34 mEq/L (23-29); Chloride 99 mEq/L (98-107); Glucose 150 mg/dL (70-105); Magnesium 2.1 mg/dL (1.6-2.6); Osmolality,Calculated 310 (280-300); Phosphorous 4.5 mg/dL (2.7-4.5); Potassium 3.5 mEq/L (3.5-5.1); Sodium 145 mEq/L (136-145); eGFR For Non-African Americans > 60 (> 60)
[2019-02-20 08:18] LABS: Platelet Estimate Normal (Normal)
[2019-02-20] MEDS: PrednisoLONE Acetate 1% Opth 5 ML BOTTLE RIGHT EYE SCH (08:44)
[2019-02-20] MEDS: Brinzolamide 1% 10 ML BOTTLE RIGHT EYE SCH (08:45)
[2019-02-20] MEDS: Valproic Acid Oral Soln 250 MG/5 ML UDC PO SCH (08:46)
[2019-02-20] MEDS: Azithromycin 250 MG TABLET PO SCH (08:47)
[2019-02-20] MEDS: Aspirin Enteric Coated 81 MG Tablet PO SCH (08:47)
[2019-02-20] MEDS: Furosemide 40 MG TABLET PO SCH (08:47)
[2019-02-20] MEDS: Cholecalciferol (D-3) 1,000 UNIT TABLET PO SCH (08:47)
[2019-02-20] MEDS: Loratadine 10 MG TABLET PO SCH (08:47)
[2019-02-20] MEDS: cloZAPine 25 MG TABLET PO SCH (08:47)
[2019-02-20] MEDS: Multivit/Ca/Min/Fe/FA 1 TAB TABLET PO SCH (08:47)
[2019-02-20] MEDS: Insulin LISPRO 300 UNITS/3 ML VIAL SQ SCH ×2 (08:56→12:18)
--- NOTE | 2019-02-20 11:34 | Discharge Summary ---
Date of Encounter: 02/20/19 Time of Encounter: 11:30 - Discharge Diagnosis (1) Acute on chronic respiratory failure with hypoxia and hypercapnia Priority: Primary Status: Resolved (2) Hyperlipidemia Priority: Secondary Status: Chronic Qualifiers: Hyperlipidemia type: unspecified Qualified Code(s): E78.5 - Hyperlipidemia, unspecified (3) Hypothyroidism Priority: Secondary Status: Chronic Qualifiers: Hypothyroidism type: unspecified Qualified Code(s): E03.9 - Hypothyroidism, unspecified (4) Developmental delay, severe Priority: Secondary Status: Chronic (5) COPD exacerbation Priority: Secondary Status: Resolved (6) Mood disorder Priority: Secondary Status: Chronic (7) Hypertension Priority: Secondary Status: Chronic Qualifiers: Hypertension type: unspecified Qualified Code(s): I10 - Essential (primary) hypertension (8) Morbidly obese Priority: Secondary Status: Chronic (9) CHF (congestive heart failure) Priority: Secondary Status: Suspected Qualifiers: Heart failure type: unspecified Heart failure chronicity: chronic Qualified Code(s): I50.9 - Heart failure, unspecified (10) Essential tremor Priority: Secondary Status: Chronic (11) Hypophosphatemia Priority: Secondary Status: Resolved (12) Pre-diabetes Priority: Secondary Status: Chronic Hospital course: Ms. Guzman is a 58 year old female past medical history of MRDD, chronic hypoxic and hypercapnic respiratory failure, COPD, orbit obesity and severe obstructive sleep apnea who presents from the assisted/ECF due to increased knee of O2 supplementation and hypoxia. Patient was admitted to the hospital due to acute on chronic hypoxic/hypercapnic respiratory failure ABG showing a pH of 7.28 and a PCO2 of 87. Chest X-ray showed no acute findings. Patient was managed with IV steroids, bronchodilators, and empiric antibiotic coverage. and nocturnal BiPAP. patient's acute symptoms have resolved, patient is back to her baseline O2 requirement of 4 litters of O2 by nasal cannula, keeping an O2sat >88%. Patient is hemodynamically stable to be discharged to ECF on oral antibiotic and a Medrol Dosepak. - Time Spent with Patient Total time spent providing and/or coordinating discharge services: Time spent: Greater than 30 minutes (35) - Discharge Medications Prescriptions: New Azithromycin [Zithromax] 500 mg PO DAILY 4 Days #4 tablet Budesonide/Formoterol 160/4.5 [Symbicort 160/4.5] 2 puff IH BIDR 30 Days #2 inh Continued Nystatin POWDER [Nystop] 1 appl TP BID PRN PRN Reason: YEAST Multivit-Min/Iron/Folic Acid/K [Adults Multivitamin Caplet] 1 tab PO DAILY Bismuth Subsalicylate [Pepto-Bismol] 15 ml PO Q4H PRN PRN Reason: Nausea Levothyroxine Sodium [Tirosint] 112 mcg PO DAILY Latanoprost [Xalatan] 1 drop RIGHT EYE HS Icosapent Ethyl [Vascepa] 1 gm PO TID guaiFENesin [Scot-Tussin Expectorant] 100 mg PO Q4H PRN PRN Reason: Cough Furosemide [Lasix] 40 mg PO BID Fluvoxamine Maleate 50 mg PO HS Benztropine Mesylate 1 mg PO BID Betaxolol HCl [Betoptic S] 1 drop RIGHT EYE BID Calcium Carbonate/Vitamin D3 [Calcium 600-Vit D3 400 Tablet] 1 tab PO DAILY #0 Prednisolone Acetate/Pf [Prednisolone Acet 1% Eye Drop] 1 drop RIGHT EYE BID Brinzolamide/Brimonidine Tart [Simbrinza 1%-0.2% Eye Drops] 1 drop RIGHT EYE BID Aspirin [Adult Aspirin Regimen] 81 mg PO DAILY Atorvastatin [Lipitor] 40 mg PO HS Cholecalciferol (Vitamin D3) [Vitamin D3] 1,000 unit PO DAILY cloZAPine [Clozaril] 12.5 mg PO BID Divalproex Sodium 500 mg PO BID Formoterol Fumarate [Perforomist] 1 puff IH BID Ipratropium/Albuterol Sulfate [Iprat-Albut 0.5-3(2.5) mg/3 ml] 3 ml IH Q6H PRN PRN Reason: SOB/COPD Loratadine [Allergy Relief] 10 mg PO DAILY Propranolol [Inderal] 20 mg PO BID Acetaminophen [Tylenol] 650 mg PO Q6HR PRN tablet PRN Reason: Fever Budesonide 1 mg IH BID clonazePAM [Clonazepam] 0.5 mg PO HS 30 Days #30 tab.rapdis Home Medications: Benztropine Mesylate 1 mg PO BID 09/12/18 [History] Bismuth Subsalicylate [Pepto-Bismol] 15 ml PO Q4H PRN 09/12/18 [History] Fluvoxamine Maleate 50 mg PO HS 09/12/18 [History] Furosemide [Lasix] 40 mg PO BID 09/12/18 [History] Icosapent Ethyl [Vascepa] 1 gm PO TID 09/12/18 [History] Latanoprost [Xalatan] 1 drop RIGHT EYE HS 09/12/18 [History] Levothyroxine Sodium [Tirosint] 112 mcg PO DAILY 09/12/18 [History] Multivit-Min/Iron/Folic Acid/K [Adults Multivitamin Caplet] 1 tab PO DAILY 09/12/18 [History] Nystatin POWDER [Nystop] 1 appl TP BID PRN 09/12/18 [History] guaiFENesin [Scot-Tussin Expectorant] 100 mg PO Q4H PRN 09/12/18 [History] Betaxolol HCl [Betoptic S] 1 drop RIGHT EYE BID 01/19/19 [History] Brinzolamide/Brimonidine Tart [Simbrinza 1%-0.2% Eye Drops] 1 drop RIGHT EYE BID 01/19/19 [History] Calcium Carbonate/Vitamin D3 [Calcium 600-Vit D3 400 Tablet] 1 tab PO DAILY #0 01/19/19 [History] Prednisolone Acetate/Pf [Prednisolone Acet 1% Eye Drop] 1 drop RIGHT EYE BID 01/19/19 [History] Aspirin [Adult Aspirin Regimen] 81 mg PO DAILY 02/07/19 [History] Atorvastatin [Lipitor] 40 mg PO HS 02/07/19 [History] Cholecalciferol (Vitamin D3) [Vitamin D3] 1,000 unit PO DAILY 02/07/19 [History] Divalproex Sodium 500 mg PO BID 02/07/19 [History] Formoterol Fumarate [Perforomist] 1 puff IH BID 02/07/19 [History] Ipratropium/Albuterol Sulfate [Iprat-Albut 0.5-3(2.5) mg/3 ml] 3 ml IH Q6H PRN 02/07/19 [History] Loratadine [Allergy Relief] 10 mg PO DAILY 02/07/19 [History] Propranolol [Inderal] 20 mg PO BID 02/07/19 [History] cloZAPine [Clozaril] 12.5 mg PO BID 02/07/19 [History] Acetaminophen [Tylenol] 650 mg PO Q6HR PRN tablet 02/10/19 [Rx] Budesonide 1 mg IH BID 02/14/19 [History] Azithromycin [Zithromax] 500 mg PO DAILY 4 Days #4 tablet 02/20/19 [Rx] Budesonide/Formoterol 160/4.5 [Symbicort 160/4.5] 2 puff IH BIDR 30 Days #2 inh 02/20/19 [Rx] clonazePAM [Clonazepam] 0.5 mg PO HS 30 Days #30 tab.rapdis 02/20/19 [Rx] Allergies/Adverse Reactions: Allergy/AdvReac Type Severity Reaction Status Date / Time sertraline Allergy Unknown See Verified 02/14/19 13:24 Comments betamethasone Allergy Hives Verified 02/14/19 13:24 [From Lotrisone] carbamazepine [From Tegretol] Allergy Hives Verified 02/14/19 13:24 chlorpromazine Allergy Hives Verified 02/14/19 13:24 [From Thorazine] clotrimazole [From Lotrisone] Allergy Hives Verified 02/14/19 13:24 Mesoridazine [From Serentil] Allergy Hives Verified 02/14/19 13:24 Date of admission: 02/14/19 17:33 Primary care physician: PCP NONE Consults: 02/14/19 18:05 Consult to Pulmonology [CONS] Stat Consulting Provider: [facility] Reason for Consult: Acute on chronic respiratory failure Call Completed: No 02/15/19 07:41 Consult to Nurse Navigator [CONS] Routine Comment: copd 02/15/19 07:42 Consult to Leadership Development Consultant [CONS] Routine Reason for SW Consult: rtn wmp - Constitutional Vitals: Temp Pulse Resp BP Pulse Ox 97.2 F L 68 14 132/71 94 02/20/19 07:03 02/20/19 07:03 02/20/19 07:03 02/20/19 07:03 02/20/19 09:05 Exam: Vitals: Reviewed General: Morbidly obese, Alert and oriented x3. No acute distress Cardiovascular: RRR, normal S1 & S2, no rubs, murmurs or gallops. No JVD. Pulse regular. Lungs: Good air entry b/l, no wheezes, rales or crackles. Abdomen: Obese, soft, non-tender, no rigidity. NABS in all 4 quadrants. Extremities: No edema Neurological: No focal neurological abnormalities Rest of the physical exam is non contributory - Patient Status Disposition: Transfer LTC Condition: Good Functional capacity at discharge: uses cane/walker Overall status at discharge: patient is back to baseline - Discharge Instructions Follow Up With: NONE,PCP [Primary Care Provider] - - Diet and Activity Activity: wear oxygen at all times (3-4 litters of O2) Diet: low salt diet - VTE Documentation of Mechanical Device: Intermittent pneumatic compression device
[2019-02-20 11:37] VITALS: BP 134/70
--- NOTE | 2019-02-20 11:40 | Physician Discharge Referral ---
ExtendedCare Referral Info Transfer To: [facility] - Diagnosis (1) Acute on chronic respiratory failure with hypoxia and hypercapnia Priority: Primary Status: Resolved (2) Hyperlipidemia Priority: Secondary Status: Chronic (3) Hypothyroidism Priority: Secondary Status: Chronic (4) Developmental delay, severe Priority: Secondary Status: Chronic (5) COPD exacerbation Priority: Secondary Status: Resolved (6) Mood disorder Priority: Secondary Status: Chronic (7) Hypertension Priority: Secondary Status: Chronic (8) Morbidly obese Priority: Secondary Status: Chronic (9) CHF (congestive heart failure) Priority: Secondary Status: Suspected (10) Essential tremor Priority: Secondary Status: Chronic (11) Hypophosphatemia Priority: Secondary Status: Resolved (12) Pre-diabetes Priority: Secondary Status: Chronic Prognosis: Fair - Transfer Medications Prescriptions: clonazePAM [Clonazepam] 0.5 mg PO HS 30 Days #30 tab.rapdis Budesonide/Formoterol 160/4.5 [Symbicort 160/4.5] 2 puff IH BIDR 30 Days #2 inh Azithromycin [Zithromax] 500 mg PO DAILY 4 Days #4 tablet Home Medications: Benztropine Mesylate 1 mg PO BID 09/12/18 [History] Bismuth Subsalicylate [Pepto-Bismol] 15 ml PO Q4H PRN 09/12/18 [History] Fluvoxamine Maleate 50 mg PO HS 09/12/18 [History] Furosemide [Lasix] 40 mg PO BID 09/12/18 [History] Icosapent Ethyl [Vascepa] 1 gm PO TID 09/12/18 [History] Latanoprost [Xalatan] 1 drop RIGHT EYE HS 09/12/18 [History] Levothyroxine Sodium [Tirosint] 112 mcg PO DAILY 09/12/18 [History] Multivit-Min/Iron/Folic Acid/K [Adults Multivitamin Caplet] 1 tab PO DAILY 09/12/18 [History] Nystatin POWDER [Nystop] 1 appl TP BID PRN 09/12/18 [History] guaiFENesin [Scot-Tussin Expectorant] 100 mg PO Q4H PRN 09/12/18 [History] Betaxolol HCl [Betoptic S] 1 drop RIGHT EYE BID 01/19/19 [History] Brinzolamide/Brimonidine Tart [Simbrinza 1%-0.2% Eye Drops] 1 drop RIGHT EYE BID 01/19/19 [History] Calcium Carbonate/Vitamin D3 [Calcium 600-Vit D3 400 Tablet] 1 tab PO DAILY #0 01/19/19 [History] Prednisolone Acetate/Pf [Prednisolone Acet 1% Eye Drop] 1 drop RIGHT EYE BID 01/19/19 [History] Aspirin [Adult Aspirin Regimen] 81 mg PO DAILY 02/07/19 [History] Atorvastatin [Lipitor] 40 mg PO HS 02/07/19 [History] Cholecalciferol (Vitamin D3) [Vitamin D3] 1,000 unit PO DAILY 02/07/19 [History] Divalproex Sodium 500 mg PO BID 02/07/19 [History] Formoterol Fumarate [Perforomist] 1 puff IH BID 02/07/19 [History] Ipratropium/Albuterol Sulfate [Iprat-Albut 0.5-3(2.5) mg/3 ml] 3 ml IH Q6H PRN 02/07/19 [History] Loratadine [Allergy Relief] 10 mg PO DAILY 02/07/19 [History] Propranolol [Inderal] 20 mg PO BID 02/07/19 [History] cloZAPine [Clozaril] 12.5 mg PO BID 02/07/19 [History] Acetaminophen [Tylenol] 650 mg PO Q6HR PRN tablet 02/10/19 [Rx] Budesonide 1 mg IH BID 02/14/19 [History] Azithromycin [Zithromax] 500 mg PO DAILY 4 Days #4 tablet 02/20/19 [Rx] Budesonide/Formoterol 160/4.5 [Symbicort 160/4.5] 2 puff IH BIDR 30 Days #2 inh 02/20/19 [Rx] clonazePAM [Clonazepam] 0.5 mg PO HS 30 Days #30 tab.rapdis 02/20/19 [Rx] Allergies/Adverse Reactions: Allergy/AdvReac Type Severity Reaction Status Date / Time sertraline Allergy Unknown See Verified 02/14/19 13:24 Comments betamethasone Allergy Hives Verified 02/14/19 13:24 [From Lotrisone] carbamazepine [From Tegretol] Allergy Hives Verified 02/14/19 13:24 chlorpromazine Allergy Hives Verified 02/14/19 13:24 [From Thorazine] clotrimazole [From Lotrisone] Allergy Hives Verified 02/14/19 13:24 Mesoridazine [From Serentil] Allergy Hives Verified 02/14/19 13:24 - Respiratory Orders Oxygen / L per min (3-4 litters) Smoking Cessation: Smoking cessation has been advised. For more information, call the [place] Tobacco Quit Line at 6-037-NYGO-NOW. - Advance Directives Code Status: Full Code - Mobility Orders Ambulate - Rehabiliation Orders Rehab Potential: Fair Rehab Orders: Evaluation for Physical Therapy, Evaluation for Occupational Therapy - Diet Orders Regular CERTIFICATION: I certify that the transfer of the above named patient to an Extended Care Facility is necessary for the continuing treatment of the diagnosis listed. The above information is true and accurate reflection of patient's current condition. Confidential - Redisclosure prohibited without a patient's written consent.
== END 2019-02-20 13:38 | DRG 189 ==
LOC: EMEROOARM 13:20 → 2ANU 17:33 → SUATTDRO 17:33 → 2ANU 18:40
PROVIDERS: ADMIT Student in an Organized Health Care Education/Training Program; ATTEND Internal Medicine

== ENCOUNTER 2019-03-18 09:14 | Inpatient (IN) ==
--- NOTE | 2019-03-18 09:38 | Emergency Department Note ---
Disposition Clinical Impression: HAP (hospital-acquired pneumonia), Acute exacerbation of chronic obstructive airways disease, Hypoxia Hypotension Qualifiers: Hypotension type: unspecified hypotension type Qualified Code(s): I95.9 - Hypotension, unspecified Disposition: Admitted As Inpatient Condition: Fair Forms: ED Satisfaction Letter Time of Disposition: 11:42 General Adult HPI - General Chief complaint: ED Shortness of Breath/Dyspnea Stated complaint: LINDSEY, weakness Time Seen by Provider: 03/18/19 09:16 Source: patient, EMS Limitations: no limitations Nursing Notes Reviewed: Yes Vital Signs Reviewed: Yes - History of Present Illness HPI Narrative: Patient presents per EMS and I did see the patient immediately upon arrival and also spoke with the paramedics and the patient tells me she has had a cough for the last several weeks which is dry. No rhinorrhea. Says she has had a fever but the patient does have MRDD and is in a jail and it is unclear whether she is aware of any specific temperature elevation. According to the paramedics temperature was 99.6 prior to arrival. The patient does state she always has swelling of the lower extremities. Does have some shortness of breath. She denies any orthopnea. No blood in the urine or stool. She denies any chest pain. Social history: No smoking No medications have been used for her shortness of breath or cough beyond [id number] cough medicine. Pain Scale: 0 - Related Data Home Medications Medication Instructions Recorded Confirmed Aspirin [Lo-Dose Aspirin EC] 81 mg PO DAILY 03/18/19 03/18/19 Atorvastatin [Lipitor] 40 mg PO HS 03/18/19 03/18/19 Benztropine [Cogentin] 1 mg PO BID 03/18/19 03/18/19 Betaxolol HCl 1 drop OP BID 03/18/19 03/18/19 Brinzolamide/Brimonidine Tart 1 drop OP BID 03/18/19 03/18/19 [Simbrinza 1%-0.2% Eye Drops] Calcium Carbonate/Vitamin D3 1 each PO DAILY 03/18/19 03/18/19 [Calcium 600 + Vit D Tablet] Cholecalciferol (Vitamin D3) 1,000 unit PO DAILY 03/18/19 03/18/19 [Vitamin D] CloZAPine [Fazaclo] 12.5 mg PO BID 03/18/19 03/18/19 Divalproex Sodium 500 mg PO BID 03/18/19 03/18/19 Fluvoxamine Maleate 50 mg PO QPM 03/18/19 03/18/19 Furosemide [Lasix] 40 mg PO BID 03/18/19 03/18/19 Icosapent Ethyl [Vascepa] 1 gm PO TID 03/18/19 03/18/19 Ipratropium/Albuterol Neb [Duoneb] 3 ml IH TID 03/18/19 03/18/19 Latanoprost [Xalatan] 1 drop OP HS 03/18/19 03/18/19 Levothyroxine [Synthroid] 112 mcg PO DAILY 03/18/19 03/18/19 Loratadine [Claritin] 10 mg PO DAILY 03/18/19 03/18/19 Meloxicam [Mobic] 7.5 mg PO DAILY 03/18/19 03/18/19 Multivitamin [One Daily] 1 each PO DAILY 03/18/19 03/18/19 PrednisoLONE Acetate [Prednisolone 1 drop OP BID 03/18/19 03/18/19 Acetate] Propranolol [Inderal] 20 mg PO BID 03/18/19 03/18/19 clonazePAM [Clonazepam] 0.25 mg PO BID 03/18/19 03/18/19 clonazePAM [Clonazepam] 0.5 mg PO HS 03/18/19 03/18/19 Allergies Allergy/AdvReac Type Severity Reaction Status Date / Time sertraline Allergy Unknown See Verified 02/14/19 13:24 Comments betamethasone Allergy Hives Verified 02/14/19 13:24 [From Lotrisone] carbamazepine [From Tegretol] Allergy Hives Verified 02/14/19 13:24 chlorpromazine Allergy Hives Verified 02/14/19 13:24 [From Thorazine] clotrimazole [From Lotrisone] Allergy Hives Verified 02/14/19 13:24 Mesoridazine [From Serentil] Allergy Hives Verified 02/14/19 13:24 All systems ED: reviewed and negative except as stated. Past Medical History - Past Medical History Medical history: Reports: CHF, COPD, diabetes, hyperlipidemia, hypertension, thyroid disease, other Surgical history: Reports: no surgical history Psychiatric history: Reports: previous psychiatric hospitalization, other, bipolar SENIOR PROFESSIONAL SERVICES CONSULTANT history: Reports: no SENIOR PROFESSIONAL SERVICES CONSULTANT history - Social History Smoking Status: Former smoker Smokeless Tobacco Status: No Alcohol use: Reports: none Drug use: Reports: none Physical Exam CONSTITUTIONAL: Alert and oriented X3, well-nourished, well appearing, in no apparent distress HEAD: Normocephalic; atraumatic. EYES: PERRL, no scleral icterus. NOSE: The nose is normal in appearance without rhinorrhea RESP: Normal chest excursion with respiration; breath sounds with bilat rhonchi worse on the right, no wheezes CARD: Regular rhythm, without murmurs, rub or gallop ABD: Non-distended; non-tender, soft,without rigidity, rebound or guarding SKIN: Normal for age and race; warm and dry; no apparent lesions Extremities: 2+ pulses equal in all 4 extremities, 2+ bilateral lower extremity edema which is symmetric without erythema - General Limitations: no limitations General appearance: alert, in no apparent distress Course Vital Signs Temperature 98.7 F 03/18/19 09:18 Pulse Rate 88 03/18/19 09:18 Respiratory Rate 20 03/18/19 09:18 Blood Pressure 124/99 03/18/19 09:18 O2 Sat by Pulse Oximetry 70 03/18/19 09:18 Temperature 98.7 F 03/18/19 09:18 Pulse Rate 88 03/18/19 11:13 Respiratory Rate 20 03/18/19 11:13 Blood Pressure 110/64 03/18/19 11:13 O2 Sat by Pulse Oximetry 92 03/18/19 11:13 Oxygen Delivery Oxygen Delivery Nasal Cannula Medical Decision Making - [facility] Narrative Medical decision making narrative: Patient's symptoms are concerning particularly the oxygen saturation of 71% on room air and she is placed on oxygen which did result in a return to saturations in the 90s and this is by nasal cannula. Labs are ordered including lactate, cultures, troponin, BNP and these results are pending. Chest x-ray is ordered. I did review her EKG which shows normal sinus rhythm with a rate of 87 as well there is some nonspecific T-wave abnormality and this can be further evaluated in the hospital as the patient will certainly be admitted with this hypoxemia. I will confirm if she is recently been a health care facility and if so patient will receive medications for hospital associated pneumonia and if not for community acquired pneumonia. 0938 I did check back on the patient also spoke with the caregivers to confirm the patient is on 4 L nasal cannula the states when she exerts herself sometimes her oxygen level goes down to the low 80s. I did review the record she was recently here. She started on Zosyn and vancomycin. They did confirm she has COPD and she is to smoke in the past and I also wrote for a dose of Solu-Medrol as well as a DuoNeb. 1026 I did review the patient's test results. The main problems are shortness of breath, cough, temperature 99.6 degrees and the history and the patient was COPD and MRDD. Also her current blood pressure is 97 systolic. This could be a COPD exacerbation or could be from pneumonia with infiltrate not able to be seen on the chest x-ray and so for that reason the patient is started on Zosyn and vancomycin for hospital-acquired pneumonia based on the fact that she has recently been hospitalized. I also did give her the Solu-Medrol and DuoNeb. Current oxygen saturation on nasal cannula oxygen is 92%. I did see her again and she is breathing comfortably at this time. I spoke with the caregiver in the room. We will request a bed and have the patient admitted. 1140 - Medical Records Medical records reviewed: Yes I reviewed the patient's medical records. - Lab Data Lab results reviewed: Yes I reviewed the patient's lab results. Result diagrams: 03/18/19 09:33 03/18/19 09:33 Lab Results 03/18/19 03/18/19 03/18/19 Range/Units 09:33 09:33 09:33 WBC 5.7 (4.3-11.1) K/mcL RBC 4.44 (3.82-4.97) M/mcL Hgb 13.1 (11.5-15.4) g/dL Hct 42.9 (35.3-44.9) % MCV 96.6 (83.0-100.0) fL MCH 29.5 (28.0-33.3) pg MCHC 30.5 L (31.6-35.5) g/dL RDW 13.0 (11.5-14.5) % Plt Count 233 (140-400) K/mcL MPV 9.4 (9.4-12.4) fL Immature Gran % 0.7 (0-4) % Seg Neutrophils % 37.2 % Lymphocytes % 47.0 % Monocytes % 12.7 % Eosinophils % 1.9 % Basophils % 0.5 % Neutrophils # 2.1 (1.6-8.9) K/mcL Lymphocytes # 2.7 (0.6-4.6) K/mcL Monocytes # 0.7 (0.0-1.3) K/mcL Eosinophils # 0.1 (0.0-0.6) K/mcL Basophils # 0.0 (0.0-0.2) K/mcL Nucleated RBCs/100 WBC 0.5 H (0) /100 WBC Sodium 147 H (136-145) mEq/L Potassium 3.4 L (3.5-5.1) mEq/L Chloride 94 L (98-107) mEq/L Carbon Dioxide > 45 H* (23-29) mEq/L BUN 11 (6-20) mg/dL Creatinine 0.67 (0.60-1.20) mg/dL Est GFR ( Amer) > 60 (> 60) Est GFR (Non-Af Amer) > 60 (> 60) BUN/Creatinine Ratio 16 (6-26) Glucose 100 (70-105) mg/dL Calculated Osmolality 303 H (280-300) Lactic Acid 1.5 (0.5-2.2) mmol/L Calcium 9.3 (8.6-10.3) mg/dL Total Bilirubin 0.4 (0.3-1.0) mg/dL Direct Bilirubin 0.1 (0.0-0.2) mg/dL Indirect Bilirubin 0.3 (0.0-1.2) mg/dL AST 31 (13-39) Units/L ALT 32 (7-52) Units/L Alkaline Phosphatase 91 (34-104) Units/L B-Natriuretic Peptide (Less than 100) pg/mL Serum Total Protein 5.9 L (6.4-8.9) g/dL Albumin 3.7 (3.5-5.7) g/dL Globulin 2.2 L (2.4-3.5) g/dL Albumin/Globulin Ratio 1.7 (1.1-2.2) Urine Color (Yellow) Urine Clarity (Clear) Urine pH (5.0-8.0) pH Units Ur Specific [place] (1.010-1.025) Urine Protein (Neg-Trace) mg/dL Urine Glucose (UA) (Normal) mg/dL Urine Ketones (Negative) mg/dL Urine Blood (Negative) Urine Nitrite (Negative) Urine Bilirubin (Negative) Urine Urobilinogen (Normal) mg/dL Ur Leukocyte Esterase (Negative) Urine Microscopic RBC (0-3) per hpf Urine Microscopic WBC (0-3) per hpf Ur Squamous Epith Cells (None-Few) per lpf Urine Bacteria (None-Few) per hpf Urine Mucus (Few) Ur Culture Indicated? (NO) 03/18/19 03/18/19 Range/Units 10:17 10:52 WBC (4.3-11.1) K/mcL RBC (3.82-4.97) M/mcL Hgb (11.5-15.4) g/dL Hct (35.3-44.9) % MCV (83.0-100.0) fL MCH (28.0-33.3) pg MCHC (31.6-35.5) g/dL RDW (11.5-14.5) % Plt Count (140-400) K/mcL MPV (9.4-12.4) fL Immature Gran % (0-4) % Seg Neutrophils % % Lymphocytes % % Monocytes % % Eosinophils % % Basophils % % Neutrophils # (1.6-8.9) K/mcL Lymphocytes # (0.6-4.6) K/mcL Monocytes # (0.0-1.3) K/mcL Eosinophils # (0.0-0.6) K/mcL Basophils # (0.0-0.2) K/mcL Nucleated RBCs/100 WBC (0) /100 WBC Sodium (136-145) mEq/L Potassium (3.5-5.1) mEq/L Chloride (98-107) mEq/L Carbon Dioxide (23-29) mEq/L BUN (6-20) mg/dL Creatinine (0.60-1.20) mg/dL Est GFR ( Amer) (> 60) Est GFR (Non-Af Amer) (> 60) BUN/Creatinine Ratio (6-26) Glucose (70-105) mg/dL Calculated Osmolality (280-300) Lactic Acid (0.5-2.2) mmol/L Calcium (8.6-10.3) mg/dL Total Bilirubin (0.3-1.0) mg/dL Direct Bilirubin (0.0-0.2) mg/dL Indirect Bilirubin (0.0-1.2) mg/dL AST (13-39) Units/L ALT (7-52) Units/L Alkaline Phosphatase (34-104) Units/L B-Natriuretic Peptide 87 (Less than 100) pg/mL Serum Total Protein (6.4-8.9) g/dL Albumin (3.5-5.7) g/dL Globulin (2.4-3.5) g/dL Albumin/Globulin Ratio (1.1-2.2) Urine Color Dark Yellow (Yellow) Urine Clarity Slightly Hazy (Clear) Urine pH 5.5 (5.0-8.0) pH Units Ur Specific [place] > 1.030 H (1.010-1.025) Urine Protein 30 H (Neg-Trace) mg/dL Urine Glucose (UA) Normal (Normal) mg/dL Urine Ketones 15 H (Negative) mg/dL Urine Blood Negative (Negative) Urine Nitrite Negative (Negative) Urine Bilirubin Small H (Negative) Urine Urobilinogen Normal (Normal) mg/dL Ur Leukocyte Esterase Negative (Negative) Urine Microscopic RBC 3-5 H (0-3) per hpf Urine Microscopic WBC 0-3 (0-3) per hpf Ur Squamous Epith Cells Many H (None-Few) per lpf Urine Bacteria None Seen (None-Few) per hpf Urine Mucus Many H (Few) Ur Culture Indicated? NO (NO) - Radiology Data Radiology results reviewed: Yes I reviewed the patient's radiology results. Critical Care Time Critical Care Time: No
[2019-03-18] MEDS ORDERED: methylPREDNISolone 125 MG/2 ML VIAL IVP ONE (09:40)
[2019-03-18] MEDS ORDERED: Piperacillin/Tazobactam 3.375 GM in 0.9 % Sodium Chloride Mini Bag 100 ML IVPB ONE (09:40)
[2019-03-18] MEDS ORDERED: Ipratropium/Albuterol Neb 3 ML IH ONE (09:40)
[2019-03-18 09:46] LABS: Basophils % 0.5 %; Eosinophils # 0.1 K/mcL (0.0-0.6); Eosinophils % 1.9 %; Hematocrit 42.9 % (35.3-44.9); Hemoglobin 13.1 g/dL (11.5-15.4); Immature Granulocytes % 0.7 % (0-4); Lymphocytes # 2.7 K/mcL (0.6-4.6); Mean Corpuscular HGB Conc 30.5 g/dL (31.6-35.5); Mean Corpuscular Hemoglobin 29.5 pg (28.0-33.3); Mean Corpuscular Volume 96.6 fL (83.0-100.0); Mean Platelet Volume 9.4 fL (9.4-12.4); Monocytes # 0.7 K/mcL (0.0-1.3); Monocytes % 12.7 %; Neutrophils # 2.1 K/mcL (1.6-8.9); Nucleated Red Blood Cells 0.5 /100 WBC (0); Platelet Count 233 K/mcL (140-400); Red Blood Count 4.44 M/mcL (3.82-4.97); Segmented Neutrophils % 37.2 %
[2019-03-18 10:26] LABS: Alanine Aminotransferase 32 Units/L (7-52); Albumin 3.7 g/dL (3.5-5.7); Albumin/Globulin Ratio 1.7 (1.1-2.2); Alkaline Phosphatase 91 Units/L (34-104); Aspartate Amino Transferase 31 Units/L (13-39); BUN/Creatinine Ratio 16 (6-26); Bilirubin,Direct 0.1 mg/dL (0.0-0.2); Bilirubin,Indirect 0.3 mg/dL (0.0-1.2); Bilirubin,Total 0.4 mg/dL (0.3-1.0); Blood Urea Nitrogen 11 mg/dL (6-20); Calcium 9.3 mg/dL (8.6-10.3); Carbon Dioxide > 45 mEq/L (23-29); Chloride 94 mEq/L (98-107); Globulin 2.2 g/dL (2.4-3.5); Glucose 100 mg/dL (70-105); Osmolality,Calculated 303 (280-300); Potassium 3.4 mEq/L (3.5-5.1); Sodium 147 mEq/L (136-145); Total Protein 5.9 g/dL (6.4-8.9); eGFR For Non-African Americans > 60 (> 60)
[2019-03-18 10:26] LABS: Bilirubin,Urine Small (Negative); Blood,Urine Negative (Negative); Color,Urine Dark Yellow (Yellow); Glucose,Urine (UA) Normal (Normal); Ketones,Urine 15 mg/dL (Negative); Leukocyte Esterase,Urine Negative (Negative); Nitrite,Urine Negative (Negative); PH,Urine 5.5 pH Units (5.0-8.0); Protein,Urine 30 mg/dL (Neg-Trace); Specific Gravity,Urine > 1.030 (1.010-1.025); Urobilinogen,Urine Normal (Normal)
[2019-03-18 10:27] LABS: Bacteria,Urine None Seen per hpf (None-Few); Squamous Epithelial Cell,Urine Many per lpf (None-Few); WBC,Urine 0-3 per hpf (0-3)
[2019-03-18 10:30] LABS: Clarity,Urine Slightly Hazy (Clear)
[2019-03-18 10:38] LABS: Mucus,Urine Many (Few)
--- NOTE | 2019-03-18 12:42 | Electrocardiograph Report ---
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
[2019-03-18] MEDS ORDERED: Naloxone 0.4 MG/ML INJ IVP PRN (14:31)
[2019-03-18] MEDS ORDERED: *HR* HYDROcodone/Acet 5/325 mg TABLET PO PRN (14:31)
[2019-03-18] MEDS ORDERED: Acetaminophen 325 MG TABLET PO PRN (14:31)
[2019-03-18] MEDS ORDERED: Ondansetron 4 MG/2 ML VIAL IVP PRN (14:31)
--- NOTE | 2019-03-18 14:42 | Internal Med History&Physical ---
Date of Encounter: 03/18/19 Time of Encounter: 14:36 Internal Medicine - H&P: HPI Chief complaint: Shortness of breath and hypoxia Admitted From: Emergency Dept Plans for Post Hospital Care: Home History of present illness: Ms. Guzman is a 58 year old female with known past medical history of diastolic CHF, hypertension, hyperlipidemia, hypothyroidism, DM2, COPD / hypoventilation syndrome and chronic hypoxic respiratory failure on 4 lit oxygen, who does have moderate developmental delay pt [facility] at a [facility] was brought into ER by EMS after she found to have acute hypoxia at [facility]. Apparently [facility] tod ay patient oxygen was off and her pulse oxy went down to 71 % on RA and pt c/o worsening SOB. She was sent to our ER for further care. She happened to have low grade fever with Temp @ 99.6. She was placed on 5 lit O2 through [place] and her SPo2 was in 90's. Even with minimal exertion her oxygen saturation dropping down to mid-80's. Patient did complaining about shortness of breath for few days associ ated with some cough denied any expectoration. In the ER her chest x-ray did not show any acute infiltrates/consolidations. She was given broad-spectrum antibiotic and IV steroids. Past Med Surg Social Fam HX - Past Medical History Medical history: CHF, COPD, diabetes, hyperlipidemia, hypertension, thyroid disease, other Additional medical history: tremor. bipolar, personality disorder, mood disorder, Psychiatric history: previous psychiatric hospitalization, other, bipolar - Past Surgical History Surgical History: no surgical history Additional surgical history: - Social History Smoking Status: Former smoker Smokeless Tobacco Status: No Alcohol use: none Drug use: none - Family History Mother Living Status: Hx Family Cardiac Disorders: Yes (stroke) Internal Medicine - H&P: Meds Aspirin [Lo-Dose Aspirin EC] 81 mg PO DAILY 03/18/19 [History] Atorvastatin [Lipitor] 40 mg PO HS 03/18/19 [History] Benztropine [Cogentin] 1 mg PO BID 03/18/19 [History] Betaxolol HCl 1 drop OP BID 03/18/19 [History] Brinzolamide/Brimonidine Tart [Simbrinza 1%-0.2% Eye Drops] 1 drop OP BID 03/18/19 [History] Calcium Carbonate/Vitamin D3 [Calcium 600 + Vit D Tablet] 1 each PO DAILY 03/18/19 [History] Cholecalciferol (Vitamin D3) [Vitamin D] 1,000 unit PO DAILY 03/18/19 [History] CloZAPine [Fazaclo] 12.5 mg PO BID 03/18/19 [History] Divalproex Sodium 500 mg PO BID 03/18/19 [History] Fluvoxamine Maleate 50 mg PO QPM 03/18/19 [History] Furosemide [Lasix] 40 mg PO BID 03/18/19 [History] Icosapent Ethyl [Vascepa] 1 gm PO TID 03/18/19 [History] Ipratropium/Albuterol Neb [Duoneb] 3 ml IH TID 03/18/19 [History] Latanoprost [Xalatan] 1 drop OP HS 03/18/19 [History] Levothyroxine [Synthroid] 112 mcg PO DAILY 03/18/19 [History] Loratadine [Claritin] 10 mg PO DAILY 03/18/19 [History] Meloxicam [Mobic] 7.5 mg PO DAILY 03/18/19 [History] Multivitamin [One Daily] 1 each PO DAILY 03/18/19 [History] PrednisoLONE Acetate [Prednisolone Acetate] 1 drop OP BID 03/18/19 [History] Propranolol [Inderal] 20 mg PO BID 03/18/19 [History] clonazePAM [Clonazepam] 0.25 mg PO BID 03/18/19 [History] clonazePAM [Clonazepam] 0.5 mg PO HS 03/18/19 [History] Allergy/AdvReac Type Severity Reaction Status Date / Time sertraline Allergy Unknown See Verified 02/14/19 13:24 Comments betamethasone Allergy Hives Verified 02/14/19 13:24 [From Lotrisone] carbamazepine [From Tegretol] Allergy Hives Verified 02/14/19 13:24 chlorpromazine Allergy Hives Verified 02/14/19 13:24 [From Thorazine] clotrimazole [From Lotrisone] Allergy Hives Verified 02/14/19 13:24 Mesoridazine [From Serentil] Allergy Hives Verified 02/14/19 13:24 All Systems PM: A 10-system review of systems was performed and is negative for pertinent findings except as documented above in the HPI. Review of systems: All the systems are reviewed everything is benign except the systems and symptoms I mentioned in the history of present illness - Constitutional Vitals: Temp Pulse Resp BP Pulse Ox 98.3 F 86 18 128/75 90 03/18/19 13:03 03/18/19 13:03 03/18/19 13:03 03/18/19 13:03 03/18/19 13:03 General appearance: Present: cooperative, mild distress, A&O X 3, answers questions appropriately Exam: a - Head Head exam: Present: atraumatic, normal inspection - Neck Neck exam general surgery: Present: supple - Respiratory Respiratory exam: Present: decreased breath sounds, respiratory distress (Mild), wheezes (Moderate to severe). Absent: rales, rhonchi - Cardiovascular Cardiovascular exam: Present: RRR, +S1, +S2. Absent: tachycardia - GI/Abdominal GI/Abdominal exam: Present: normal bowel sounds, soft. Absent: rebound, rigid, tenderness - Extremities Exam Extremities exam: Present: calf tenderness, pedal edema (Trace), warm. Absent: tenderness - Back Exam Back exam: Absent: CVA tenderness (L), CVA tenderness (R) - Neurological Exam Neurological exam: Present: alert, no focal deficits. Absent: facial droop, speech deficit - Psychiatric Psychiatric exam: Present: anxious - Skin Skin exam: Absent: rash Internal Med - H&P Results - Labs CBC & Chem 7: 03/18/19 09:33 03/18/19 09:33 Labs: Short CBC 03/18/19 Range/Units 09:33 WBC 5.7 (4.3-11.1) K/mcL Hgb 13.1 (11.5-15.4) g/dL Hct 42.9 (35.3-44.9) % Plt Count 233 (140-400) K/mcL Neutrophils # 2.1 (1.6-8.9) K/mcL BMP 03/18/19 09:33 Sodium 147 H Potassium 3.4 L Chloride 94 L Carbon Dioxide > 45 H* BUN 11 Creatinine 0.67 Glucose 100 Calcium 9.3 Liver Function 03/18/19 Range/Units 09:33 Total Bilirubin 0.4 (0.3-1.0) mg/dL Direct Bilirubin 0.1 (0.0-0.2) mg/dL AST 31 (13-39) Units/L ALT 32 (7-52) Units/L Alkaline Phosphatase 91 (34-104) Units/L Albumin 3.7 (3.5-5.7) g/dL Urine 03/18/19 Range/Units 10:17 Urine Color Dark Yellow (Yellow) Urine Clarity Slightly Hazy (Clear) Urine pH 5.5 (5.0-8.0) pH Units Ur Specific [place] > 1.030 H (1.010-1.025) Urine Protein 30 H (Neg-Trace) mg/dL Urine Glucose (UA) Normal (Normal) mg/dL - Impressions ITS Impressions Chest X-Ray 03/18/19 09:26 IMPRESSION: No acute cardiopulmonary process. D/ / Jeremy Phillips MD / Jeremy Phillips MD Interpreting Provider: Jeremy Phillips MD - Assessment and Plan (1) Acute on chronic respiratory failure with hypoxia and hypercapnia Current Visit: No Status: Acute Assessment and plan: Admit the patient into Tele reviewed her BMP - Noticed Co2 retention she does have chronic hypercapnea ordered stat ABG now If pt does have acute Co2 retention now - will start her on BiPAP Due to her morbid obesity she does have hypoventilation syndrome/ Pickwickian syndrome She would get benefit with positive pressure ventilation CPAP vs BiPAP at [facility] Will work on it during this hospitalization (2) Acute exacerbation of chronic obstructive airways disease Current Visit: Yes Status: Acute Assessment and plan: Started on high dose IV steroids cont frequent bronchodilators continue prophylactic antibiotic levofloxacin continue on oxygen.. Currently on 5 lit O2, still de saturating with minimal exertion (3) Acute bronchitis Current Visit: Yes Status: Acute Assessment and plan: Reviewed chest x-ray - no consolidations noticed she might have acute bronchitis ordered respiratory viral panel, sputum culture, step pneumonia and Legionella on prophylactic antibiotic levofloxacin Qualifiers: Bronchitis organism: unspecified organism Qualified Code(s): J20.9 - Acute bronchitis, unspecified (4) Obesity hypoventilation syndrome Current Visit: No Status: Chronic Assessment and plan: as above (5) Congestive heart failure Current Visit: No Status: Chronic Assessment and plan: Not in exacerbation resumed all home medications Qualifiers: Heart failure type: diastolic Heart failure chronicity: chronic Qualified Code(s): I50.32 - Chronic diastolic (congestive) heart failure (6) Explosive personality disorder Current Visit: No Status: Acute Assessment and plan: Resumed all home psych medications started on Haldol as needed (7) Hypertension Current Visit: No Status: Chronic Assessment and plan: Stable blood pressure with current home medications Qualifiers: Hypertension type: unspecified Qualified Code(s): I10 - Essential (primary) hypertension (8) Hypothyroidism Current Visit: No Status: Chronic Assessment and plan: Resumed home medication Qualifiers: Hypothyroidism type: unspecified Qualified Code(s): E03.9 - Hypothyroidism, unspecified (9) Mood disorder Current Visit: No Status: Chronic Assessment and plan: Resumed all home mood disorder medications including Divalproex - Time Spent With Patient Total time spent is greater than 50% in coordination of care (as documented) at patient's floor/unit and/or counseling patient:
[2019-03-18] MEDS ORDERED: Levofloxacin 750 MG/150 ML 750 MG/150 ML BAG IVPB SCH (14:45)
[2019-03-18 15:22] LABS: ABG Base Excess 16 mEq/L (-2 to 3); ABG HCO3 46 mEq/L (21-27); ABG Oxygen Saturation 80 % (95-98); ABG PCO2 76 mmHg (35-45); ABG PH 7.39 pH Units (7.32-7.45); ABG PO2 48 mmHg (85-104); ABG TCO2 49 mEq/L (20-26)
[2019-03-18 16:38] LABS: Adenovirus Not Detected (Not Detect); Bordetella Pertussis Not Detected (Not Detect); Chlamydophila pneumoniae Not Detected (Not Detect); Coronavirus 229E Not Detected (Not Detect); Coronavirus HKU1 Not Detected (Not Detect); Coronavirus NL63 Not Detected (Not Detect); Coronavirus OC43 Not Detected (Not Detect); Human Metapneumovirus Not Detected (Not Detect); Human Rhinovirus/Enterovirus Not Detected (Not Detect); Influenza A Subtype 2009 H1 Not Detected (Not Detect); Influenza A Untypeable Not Detected (Not Detect); Influenza B Not Detected (Not Detect); Mycoplasma pneumoniae Not Detected (Not Detect); Parainfluenza Virus 1 Not Detected (Not Detect); Parainfluenza Virus 2 Not Detected (Not Detect); Parainfluenza Virus 3 Not Detected (Not Detect); Parainfluenza Virus 4 Not Detected (Not Detect); Respiratory Syncytial Virus Not Detected (Not Detect)
[2019-03-18] MEDS: Ipratropium/Albuterol Neb 3 ML IH SCH ×3 (16:49→23:31)
[2019-03-18] MEDS: MethylPREDNISolone 40 MG/ML VIAL IVP SCH ×2 (17:49→23:58)
[2019-03-18] MEDS: cloZAPine 25 MG TABLET PO SCH (20:33)
[2019-03-18] MEDS: Divalproex (12 HR) 500 MG TABLET PO SCH (20:33)
[2019-03-18] MEDS: clonazePAM 0.5 MG TABLET PO SCH (20:33)
[2019-03-18] MEDS: Brinzolamide 1% 10 ML BOTTLE RIGHT EYE SCH (20:35)
[2019-03-18] MEDS: BETAXOLOL HCL OP SCH (20:43)
[2019-03-18] MEDS ORDERED: CLONAZEPAM 0.25 MG PO SCH (21:00)
[2019-03-18] MEDS ORDERED: NON-FORMULARY MEDICATION 1 EACH EACH (Brinzolamide/Brimonidine Tart [Simbrinza 1%-0.2% Eye OP SCH (21:00)
[2019-03-19] MEDS ORDERED: D5% in Water 1,000 ML IVC PRN (00:22)
[2019-03-19] MEDS ORDERED: *HR* Dextrose 50 % in Water (Syg) 50 ML SYRINGE IVP PRN (00:22)
[2019-03-19] MEDS ORDERED: Dextrose Gel 15 GM/37.5 ML TUBE PO PRN ×2 (00:22)
[2019-03-19] MEDS: Nystatin Cream 15 GM TUBE TP SCH ×3 (00:47→20:25)
[2019-03-19] MEDS: Ipratropium/Albuterol Neb 3 ML IH SCH ×6 (03:29→23:03)
[2019-03-19 05:31] LABS: Basophils % 0.1 %; Immature Granulocytes % 0.6 % (0-4); Lymphocytes # 1.2 K/mcL (0.6-4.6); Lymphocytes % 15.4 %; Mean Corpuscular HGB Conc 31.7 g/dL (31.6-35.5); Mean Corpuscular Hemoglobin 29.7 pg (28.0-33.3); Mean Corpuscular Volume 93.6 fL (83.0-100.0); Mean Platelet Volume 9.4 fL (9.4-12.4); Monocytes # 0.3 K/mcL (0.0-1.3); Monocytes % 3.9 %; Neutrophils # 6.4 K/mcL (1.6-8.9); Nucleated Red Blood Cells 0.2 /100 WBC (0); Platelet Count 223 K/mcL (140-400); Red Blood Count 4.38 M/mcL (3.82-4.97); Red Cell Distribution Width 12.6 % (11.5-14.5)
[2019-03-19] MEDS: *HR* Enoxaparin 40 MG/0.4 ML SYRINGE SQ SCH (05:59)
[2019-03-19 06:04] LABS: BUN/Creatinine Ratio 28 (6-26); Blood Urea Nitrogen 20 mg/dL (6-20); Carbon Dioxide 42 mEq/L (23-29); Chloride 95 mEq/L (98-107); Glucose 221 mg/dL (70-105); Magnesium 1.9 mg/dL (1.6-2.6); Osmolality,Calculated 305 (280-300); Potassium 4.1 mEq/L (3.5-5.1); Sodium 143 mEq/L (136-145); eGFR For Non-African Americans > 60 (> 60)
[2019-03-19] MEDS: cloZAPine 25 MG TABLET PO SCH ×2 (09:10→20:19)
[2019-03-19] MEDS: Multivit/Ca/Min/Fe/FA 1 TAB TABLET PO SCH (09:10)
[2019-03-19] MEDS: MethylPREDNISolone 40 MG/ML VIAL IVP SCH ×2 (09:10→20:24)
[2019-03-19] MEDS: Aspirin Enteric Coated 81 MG Tablet PO SCH (09:10)
[2019-03-19] MEDS: Divalproex (12 HR) 500 MG TABLET PO SCH ×2 (09:10→20:17)
[2019-03-19] MEDS: Loratadine 10 MG TABLET PO SCH (09:10)
[2019-03-19] MEDS: Brinzolamide 1% 10 ML BOTTLE RIGHT EYE SCH ×2 (09:11→20:22)
[2019-03-19] MEDS: BETAXOLOL HCL OP SCH ×2 (11:52→20:24)
--- NOTE | 2019-03-19 12:48 | Internal Med Progress Note ---
Hospitalist Progress Note - Encounter Date of Encounter: 03/19/19 Time of Encounter: 12:47 - Subjective Interval History: I have seen and evaluated the patient at bedside. patient reported improvement on her breathing. denies chest pain, nausea or vomiting. reports feeling a little tired and sleepy. denies chest pain. - Exam Vitals: Temp Pulse Resp BP Pulse Ox 98.1 F 88 95 139/71 93 03/19/19 10:58 03/19/19 10:58 03/19/19 10:58 03/19/19 10:58 03/19/19 07:51 Exam: Vitals: Reviewed General: Alert and oriented x2. In no distress HEENT: EOM, opacity on the right pupil, round and reactive. Cardiovascular: RRR, normal S1 & S2, no rubs, murmurs or gallops. Lungs: CTA b/l, no wheezes or crackles. Abdomen: Obese, soft, non-tender, no rigidity. Extremities: No edema Neurological: No focal neurological deficits Rest of the physical exam is non contributory - Assessment and Plan (1) Acute exacerbation of chronic obstructive airways disease Current Visit: Yes Status: Acute Assessment and Plan: chest is clear to auscultation. Plan will decrease methyl-prednsolone dose to 40mg/IV BID Continue bronchodilators On levofloxacin 750 mg by mouth daily. Nocturnal BiPAP Continue oxygen by nasal cannula, titrate for O2 sat duration more than 88%. Incentive spirometry (2) Explosive personality disorder Current Visit: No Status: Chronic (3) Hypothyroidism Current Visit: No Status: Chronic Assessment and Plan: Patient is on levothyroxine 112 mcg/po daily (4) Obesity hypoventilation syndrome Current Visit: No Status: Chronic (5) Acute on chronic respiratory failure with hypoxia and hypercapnia Current Visit: No Status: Acute Assessment and Plan: plan of care as per problem #1 (6) Congestive heart failure Current Visit: No Status: Chronic Assessment and Plan: Patient is not an acute exacerbation. We will resume furosemide at a lower dose, 20 mg by mouth daily. Continue strict intake and outputs (7) Mood disorder Current Visit: No Status: Chronic (8) Hypertension Current Visit: No Status: Chronic Assessment and Plan: Blood pressure is well controlled. Furosemide resumed. On propanolol 20 mg by mouth twice a day. (9) Eye exam abnormal Current Visit: Yes Status: Chronic Assessment and Plan: patient needs and outpatient ophthalmology evaluation DVT Prophylaxis: Patient is on enoxaparin 40mg/Subq daily - Summary of Assessment and Plan Summary of Assessment and Plan: patient to remain in the hospital due to hypercapnic, hypoxemic respiratory failure. - Time Spent with Patient Total time spent is greater than 50% in coordination of care (as documented) at patient's floor/unit and/or counseling patient: Greater than 35 minutes (40) Plan of Care Discussed with: patient (and the nurse.) Internal Medicine: Result - Labs CBC & Chem 7: 03/19/19 05:12 03/19/19 05:12 Labs: Short CBC 03/19/19 Range/Units 05:12 WBC 8.0 (4.3-11.1) K/mcL Hgb 13.0 (11.5-15.4) g/dL Hct 41.0 (35.3-44.9) % Plt Count 223 (140-400) K/mcL Neutrophils # 6.4 (1.6-8.9) K/mcL BMP 03/19/19 05:12 Sodium 143 Potassium 4.1 Chloride 95 L Carbon Dioxide 42 H* BUN 20 Creatinine 0.72 Glucose 221 H Calcium 9.0 - ABG Interpretation ABG results: ABG ABG pH 7.39 pH Units (7.32-7.45) 03/18/19 15:15 ABG pCO2 76 mmHg (35-45) H* 03/18/19 15:15 ABG pO2 48 mmHg (85-104) L* 03/18/19 15:15 ABG O2 Saturation 80 % (95-98) L 03/18/19 15:15 Consult Discharge Plan - Plan Referrals: NONE,PCP [Primary Care Provider] - (3) Hypothyroidism Qualifiers: Hypothyroidism type: unspecified Qualified Code(s): E03.9 - Hypothyroidism, unspecified (6) Congestive heart failure Qualifiers: Heart failure type: diastolic Heart failure chronicity: chronic Qualified Code(s): I50.32 - Chronic diastolic (congestive) heart failure (8) Hypertension Qualifiers: Hypertension type: unspecified Qualified Code(s): I10 - Essential (primary) hypertension
[2019-03-19] MEDS: Insulin LISPRO 300 UNITS/3 ML VIAL SQ SCH (18:28)
[2019-03-19] MEDS: clonazePAM 0.5 MG TABLET PO SCH (20:17)
[2019-03-19] MEDS: Insulin DETEMIR 100 UNIT/ML X5UNITS SQ SCH (20:33)
[2019-03-20] MEDS: Ipratropium/Albuterol Neb 3 ML IH SCH ×6 (03:26→23:00)
[2019-03-20] MEDS: *HR* Enoxaparin 40 MG/0.4 ML SYRINGE SQ SCH (05:43)
[2019-03-20] MEDS: Furosemide 20 MG TABLET PO SCH (08:51)
[2019-03-20] MEDS: Aspirin Enteric Coated 81 MG Tablet PO SCH (08:51)
[2019-03-20] MEDS: Divalproex (12 HR) 500 MG TABLET PO SCH ×2 (08:52→22:01)
[2019-03-20] MEDS: Loratadine 10 MG TABLET PO SCH (08:52)
[2019-03-20] MEDS: levoFLOXacin 750 MG TABLET PO SCH (08:52)
[2019-03-20] MEDS: Multivit/Ca/Min/Fe/FA 1 TAB TABLET PO SCH (08:52)
[2019-03-20] MEDS: cloZAPine 25 MG TABLET PO SCH ×2 (08:52→22:04)
[2019-03-20] MEDS: MethylPREDNISolone 40 MG/ML VIAL IVP SCH (08:53)
[2019-03-20] MEDS: Insulin LISPRO 300 UNITS/3 ML VIAL SQ SCH ×3 (08:58→16:45)
[2019-03-20] MEDS: Brinzolamide 1% 10 ML BOTTLE RIGHT EYE SCH ×2 (09:00→22:00)
[2019-03-20] MEDS: Nystatin Cream 15 GM TUBE TP SCH ×2 (09:09→22:03)
[2019-03-20] MEDS: BETAXOLOL HCL OP SCH (09:09)
[2019-03-20 09:37] LABS: BUN/Creatinine Ratio 42 (6-26); Blood Urea Nitrogen 28 mg/dL (6-20); Calcium 9.2 mg/dL (8.6-10.3); Carbon Dioxide 45 mEq/L (23-29); Chloride 94 mEq/L (98-107); Glucose 158 mg/dL (70-105); Magnesium 2.2 mg/dL (1.6-2.6); Osmolality,Calculated 311 (280-300); Phosphorous 3.7 mg/dL (2.7-4.5); Potassium 3.8 mEq/L (3.5-5.1); Sodium 146 mEq/L (136-145); eGFR For Non-African Americans > 60 (> 60)
--- NOTE | 2019-03-20 15:02 | Internal Med Progress Note ---
Hospitalist Progress Note - Encounter Date of Encounter: 03/20/19 Time of Encounter: 14:59 - Subjective Interval History: I have seen and evaluated the patient at bedside. patient reports feeling better today, denies shortness of breath, nausea or vomiting. denies chest pain. no significant event overnight - Exam Vitals: Temp Pulse Resp BP Pulse Ox 98.1 F 75 16 121/69 89 03/20/19 11:05 03/20/19 11:05 03/20/19 11:26 03/20/19 11:26 03/20/19 11:26 Exam: Vitals: Reviewed General: Alert and oriented x2. In no distress HEENT: opacity on the right pupil, round and reactive. Cardiovascular: RRR, normal S1 & S2, no rubs, murmurs or gallops. Lungs: mild scattered expiratory wheezes b/l, no crackles. Abdomen: Obese, soft, non-tender, no rigidity. NABS in all 4 quadrants. Extremities: No edema Neurological: No focal neurological deficits Rest of the physical exam is non contributory - Assessment and Plan (1) Acute exacerbation of chronic obstructive airways disease Current Visit: Yes Status: Acute Assessment and Plan: minimal scattered expiratory wheezing b/l. Plan dc IV steroids. will start prednisone 40mg/PO daily Continue bronchodilators Q4RT scheduled levofloxacin 750 mg by mouth daily. Nocturnal BiPAP Continue oxygen by nasal cannula, titrate for O2 sat duration more than 88%. Incentive spirometry (2) Hypothyroidism Current Visit: No Status: Chronic Assessment and Plan: Continue levothyroxine 112 mcg/po daily (3) Obesity hypoventilation syndrome Current Visit: No Status: Chronic (4) Acute on chronic respiratory failure with hypoxia and hypercapnia Current Visit: No Status: Acute Assessment and Plan: plan of care as per problem #1 (5) Congestive heart failure Current Visit: No Status: Chronic Assessment and Plan: patient is euvolemic. fluids restrictive strategies to 1.5 litters a day. continue furosemide 20mg/PO daily plus daily weight and strict intake and output (6) Mood disorder Current Visit: No Status: Chronic Assessment and Plan: Patient is on Divvalproex 500mg/PO BID, clonazepan 0.5mg/PO HS and clozapine 12.5mg/PO BID. (7) Hypertension Current Visit: No Status: Chronic Assessment and Plan: Blood pressure is well controlled on furosemide 20 mg by mouth daily, and propranolol 20 mg by mouth twice a day. (8) Eye exam abnormal Current Visit: Yes Status: Chronic (9) Explosive personality disorder Current Visit: No Status: Chronic DVT Prophylaxis: patient is on enoxaparin 40mg/subQ daily - Summary of Assessment and Plan Summary of Assessment and Plan: patient to remain in the hospital due to resolving copd exacerbation. potential discharge tomorrow. - Time Spent with Patient Total time spent is greater than 50% in coordination of care (as documented) at patient's floor/unit and/or counseling patient: Greater than 35 minutes (40) Plan of Care Discussed with: patient (and the nurse.) Internal Medicine: Result - Labs CBC & Chem 7: 03/19/19 05:12 03/20/19 08:57 Labs: BMP 03/20/19 08:57 Sodium 146 H Potassium 3.8 Chloride 94 L Carbon Dioxide 45 H* BUN 28 H Creatinine 0.66 Glucose 158 H Calcium 9.2 - ABG Interpretation ABG results: ABG ABG pH 7.39 pH Units (7.32-7.45) 03/18/19 15:15 ABG pCO2 76 mmHg (35-45) H* 03/18/19 15:15 ABG pO2 48 mmHg (85-104) L* 03/18/19 15:15 ABG O2 Saturation 80 % (95-98) L 03/18/19 15:15 Consult Discharge Plan - Plan Referrals: NONE,PCP [Primary Care Provider] - (2) Hypothyroidism Qualifiers: Hypothyroidism type: unspecified Qualified Code(s): E03.9 - Hypothyroidism, unspecified (5) Congestive heart failure Qualifiers: Heart failure type: diastolic Heart failure chronicity: chronic Qualified Code(s): I50.32 - Chronic diastolic (congestive) heart failure (7) Hypertension Qualifiers: Hypertension type: unspecified Qualified Code(s): I10 - Essential (primary) hypertension
[2019-03-20] MEDS: clonazePAM 0.5 MG TABLET PO SCH (22:01)
[2019-03-20] MEDS: Insulin DETEMIR 100 UNIT/ML X5UNITS SQ SCH (22:10)
[2019-03-21] MEDS: Ipratropium/Albuterol Neb 3 ML IH SCH ×5 (03:19→19:47)
[2019-03-21] MEDS: *HR* Enoxaparin 40 MG/0.4 ML SYRINGE SQ SCH (06:04)
[2019-03-21] MEDS: Insulin LISPRO 300 UNITS/3 ML VIAL SQ SCH ×2 (07:20→12:32)
[2019-03-21] MEDS: Furosemide 20 MG TABLET PO SCH (08:26)
[2019-03-21] MEDS: Loratadine 10 MG TABLET PO SCH (08:26)
[2019-03-21] MEDS: Multivit/Ca/Min/Fe/FA 1 TAB TABLET PO SCH (08:27)
[2019-03-21] MEDS: Aspirin Enteric Coated 81 MG Tablet PO SCH (08:27)
[2019-03-21] MEDS: Divalproex (12 HR) 500 MG TABLET PO SCH (08:27)
[2019-03-21] MEDS: cloZAPine 25 MG TABLET PO SCH (08:27)
[2019-03-21] MEDS: levoFLOXacin 750 MG TABLET PO SCH (08:27)
[2019-03-21] MEDS: Brinzolamide 1% 10 ML BOTTLE RIGHT EYE SCH (08:29)
[2019-03-21] MEDS: Nystatin Cream 15 GM TUBE TP SCH (08:31)
--- NOTE | 2019-03-21 08:40 | Discharge Summary ---
Orders not resulted at time of discharge: Pending orders 03/18/19 10:50 Culture,Blood [BC] Stat 03/18/19 14:34 Culture,Sputum with Gram Stain [RM] Routine 03/21/19 04:00 Basic Metabolic Panel AM 0400 Magnesium AM 0400 Phosphorous AM 0400 Date of Encounter: 03/21/19 Time of Encounter: 08:36 - Discharge Diagnosis (1) Acute exacerbation of chronic obstructive airways disease Priority: Primary Status: Resolved (2) Hypothyroidism Priority: Secondary Status: Chronic Qualifiers: Hypothyroidism type: unspecified Qualified Code(s): E03.9 - Hypothyroidism, unspecified (3) Obesity hypoventilation syndrome Priority: Secondary Status: Chronic (4) Acute on chronic respiratory failure with hypoxia and hypercapnia Priority: Primary Status: Resolved (5) Congestive heart failure Priority: Secondary Status: Chronic Qualifiers: Heart failure type: diastolic Heart failure chronicity: chronic Qualified Code(s): I50.32 - Chronic diastolic (congestive) heart failure (6) Mood disorder Priority: Secondary Status: Chronic (7) Hypertension Priority: Secondary Status: Chronic Qualifiers: Hypertension type: unspecified Qualified Code(s): I10 - Essential (primary) hypertension (8) Eye exam abnormal Priority: Secondary Status: Chronic (9) Explosive personality disorder Priority: Secondary Status: Chronic Hospital course: Ms. Guzman is a 58 year old female past medical history of diastolic CHF, hypertension, hyperlipidemia, hypothyroidism, DM2, COPD / hypoventilation syndrome and chronic hypoxic respiratory failure on 4 lit oxygen, who does have moderate developmental delay pt lives at a long term was brought into ER by EMS after she found to have acute hypoxia at long term. patient was admitted to the hospital due to COPD exacerbation, hypoxemic, hypercapnic respiratory failure. Patient was managed with empiric antibiotics, bronchodilators and systemic steroids. Patient acute symptoms have resolved, patient is back to her baseline O2 requirement, and is hemodynamically stable to be discharged on an oral steroid taper. - Time Spent with Patient Total time spent providing and/or coordinating discharge services: Time spent: Greater than 30 minutes (35) - Discharge Medications Prescriptions: New levoFLOXacin [Levaquin] 750 mg PO DAILY 5 Days #5 tablet Continued Latanoprost [Xalatan] 1 drop RIGHT EYE HS Brinzolamide/Brimonidine Tart [Simbrinza 1%-0.2% Eye Drops] 1 drop RIGHT EYE BID PrednisoLONE Acetate [Prednisolone Acetate] 1 drop RIGHT EYE BID Propranolol [Inderal] 20 mg PO BID Multivitamin [One Daily] 1 tab PO DAILY Atorvastatin [Lipitor] 40 mg PO QPM Loratadine [Claritin] 10 mg PO DAILY Meloxicam [Mobic] 7.5 mg PO DAILY Furosemide [Lasix] 40 mg PO BID Divalproex Sodium 500 mg PO BID Fluvoxamine Maleate 50 mg PO QPM Icosapent Ethyl [Vascepa] 1 gm PO TID Cholecalciferol (Vitamin D3) [Vitamin D3] 1,000 unit PO DAILY Betaxolol HCl 1 drop RIGHT EYE BID Aspirin [Adult Aspirin Regimen] 81 mg PO DAILY Benztropine Mesylate 1 mg PO BID Calcium Carbonate/Vitamin D3 [Calcium 600 + Vit D Softgel] 1 cap PO DAILY clonazePAM [Clonazepam] 0.5 mg PO DAILY cloZAPine [Clozaril] 12.5 mg PO BID Ipratropium/Albuterol Sulfate [Iprat-Albut 0.5-3(2.5) mg/3 ml] 3 ml IH TID Levothyroxine [Synthroid] 125 mcg PO DAILY Home Medications: Atorvastatin [Lipitor] 40 mg PO QPM 03/18/19 [History] Betaxolol HCl 1 drop RIGHT EYE BID 03/18/19 [History] Brinzolamide/Brimonidine Tart [Simbrinza 1%-0.2% Eye Drops] 1 drop RIGHT EYE BID 03/18/19 [History] Cholecalciferol (Vitamin D3) [Vitamin D3] 1,000 unit PO DAILY 03/18/19 [History] Divalproex Sodium 500 mg PO BID 03/18/19 [History] Fluvoxamine Maleate 50 mg PO QPM 03/18/19 [History] Furosemide [Lasix] 40 mg PO BID 03/18/19 [History] Icosapent Ethyl [Vascepa] 1 gm PO TID 03/18/19 [History] Latanoprost [Xalatan] 1 drop RIGHT EYE HS 03/18/19 [History] Loratadine [Claritin] 10 mg PO DAILY 03/18/19 [History] Meloxicam [Mobic] 7.5 mg PO DAILY 03/18/19 [History] Multivitamin [One Daily] 1 tab PO DAILY 03/18/19 [History] PrednisoLONE Acetate [Prednisolone Acetate] 1 drop RIGHT EYE BID 03/18/19 [History] Propranolol [Inderal] 20 mg PO BID 03/18/19 [History] Aspirin [Adult Aspirin Regimen] 81 mg PO DAILY 03/20/19 [History] Benztropine Mesylate 1 mg PO BID 03/20/19 [History] Calcium Carbonate/Vitamin D3 [Calcium 600 + Vit D Softgel] 1 cap PO DAILY 03/20/19 [History] Ipratropium/Albuterol Sulfate [Iprat-Albut 0.5-3(2.5) mg/3 ml] 3 ml IH TID 03/20/19 [History] Levothyroxine [Synthroid] 125 mcg PO DAILY 03/20/19 [History] cloZAPine [Clozaril] 12.5 mg PO BID 03/20/19 [History] clonazePAM [Clonazepam] 0.5 mg PO DAILY 03/20/19 [History] levoFLOXacin [Levaquin] 750 mg PO DAILY 5 Days #5 tablet 03/21/19 [Rx] Allergies/Adverse Reactions: Allergy/AdvReac Type Severity Reaction Status Date / Time sertraline Allergy Unknown See Verified 02/14/19 13:24 Comments betamethasone Allergy Hives Verified 02/14/19 13:24 [From Lotrisone] carbamazepine [From Tegretol] Allergy Hives Verified 02/14/19 13:24 chlorpromazine Allergy Hives Verified 02/14/19 13:24 [From Thorazine] clotrimazole [From Lotrisone] Allergy Hives Verified 02/14/19 13:24 Mesoridazine [From Serentil] Allergy Hives Verified 02/14/19 13:24 Date of admission: 03/18/19 11:52 Primary care physician: PCP NONE - Constitutional Vitals: Temp Pulse Resp BP Pulse Ox 96.1 F L 62 11 107/71 97 03/21/19 06:51 03/21/19 06:51 03/21/19 08:10 03/21/19 06:51 03/21/19 08:10 General appearance: Present: cooperative, mild distress, A&O X 3, answers questions appropriately Exam: Vitals: Reviewed General: Alert and oriented x2. In no distress HEENT: opacity on the right pupil, round and reactive. Cardiovascular: RRR, normal S1 & S2, no rubs, murmurs or gallops. Lungs: No wheezes b/l, no crackles. Abdomen: Obese, soft, non-tender, no rigidity. NABS in all 4 quadrants. Extremities: No edema Neurological: No focal neurological deficits Rest of the physical exam is non contributory - Patient Status Disposition: Transfer LTC Condition: Good Functional capacity at discharge: uses cane/walker Overall status at discharge: patient is back to baseline - Discharge Instructions Follow Up With: NONE,PCP [Primary Care Provider] - - Diet and Activity Activity: resume usual activities as tolerated, wear oxygen at all times (3 litters) Diet: low salt diet
--- NOTE | 2019-03-21 08:44 | Physician Discharge Referral ---
ExtendedCare Referral Info Transfer To: [facility], later [facility]. - Diagnosis (1) Acute exacerbation of chronic obstructive airways disease Priority: Primary Status: Resolved (2) Hypothyroidism Priority: Secondary Status: Chronic (3) Obesity hypoventilation syndrome Priority: Secondary Status: Chronic (4) Acute on chronic respiratory failure with hypoxia and hypercapnia Priority: Primary Status: Resolved (5) Congestive heart failure Priority: Secondary Status: Chronic (6) Mood disorder Priority: Secondary Status: Chronic (7) Hypertension Priority: Secondary Status: Chronic (8) Eye exam abnormal Priority: Secondary Status: Chronic (9) Explosive personality disorder Priority: Secondary Status: Chronic Prognosis: Fair Aware of Diagnosis: Patient Aware of Prognosis: Patient - Transfer Medications Prescriptions: levoFLOXacin [Levaquin] 750 mg PO DAILY 5 Days #5 tablet Home Medications: Atorvastatin [Lipitor] 40 mg PO QPM 03/18/19 [History] Betaxolol HCl 1 drop RIGHT EYE BID 03/18/19 [History] Brinzolamide/Brimonidine Tart [Simbrinza 1%-0.2% Eye Drops] 1 drop RIGHT EYE BID 03/18/19 [History] Cholecalciferol (Vitamin D3) [Vitamin D3] 1,000 unit PO DAILY 03/18/19 [History] Divalproex Sodium 500 mg PO BID 03/18/19 [History] Fluvoxamine Maleate 50 mg PO QPM 03/18/19 [History] Furosemide [Lasix] 40 mg PO BID 03/18/19 [History] Icosapent Ethyl [Vascepa] 1 gm PO TID 03/18/19 [History] Latanoprost [Xalatan] 1 drop RIGHT EYE HS 03/18/19 [History] Loratadine [Claritin] 10 mg PO DAILY 03/18/19 [History] Meloxicam [Mobic] 7.5 mg PO DAILY 03/18/19 [History] Multivitamin [One Daily] 1 tab PO DAILY 03/18/19 [History] PrednisoLONE Acetate [Prednisolone Acetate] 1 drop RIGHT EYE BID 03/18/19 [History] Propranolol [Inderal] 20 mg PO BID 03/18/19 [History] Aspirin [Adult Aspirin Regimen] 81 mg PO DAILY 03/20/19 [History] Benztropine Mesylate 1 mg PO BID 03/20/19 [History] Calcium Carbonate/Vitamin D3 [Calcium 600 + Vit D Softgel] 1 cap PO DAILY 03/20/19 [History] Ipratropium/Albuterol Sulfate [Iprat-Albut 0.5-3(2.5) mg/3 ml] 3 ml IH TID 03/20/19 [History] Levothyroxine [Synthroid] 125 mcg PO DAILY 03/20/19 [History] cloZAPine [Clozaril] 12.5 mg PO BID 03/20/19 [History] clonazePAM [Clonazepam] 0.5 mg PO DAILY 03/20/19 [History] levoFLOXacin [Levaquin] 750 mg PO DAILY 5 Days #5 tablet 03/21/19 [Rx] Allergies/Adverse Reactions: Allergy/AdvReac Type Severity Reaction Status Date / Time sertraline Allergy Unknown See Verified 02/14/19 13:24 Comments betamethasone Allergy Hives Verified 02/14/19 13:24 [From Lotrisone] carbamazepine [From Tegretol] Allergy Hives Verified 02/14/19 13:24 chlorpromazine Allergy Hives Verified 02/14/19 13:24 [From Thorazine] clotrimazole [From Lotrisone] Allergy Hives Verified 02/14/19 13:24 Mesoridazine [From Serentil] Allergy Hives Verified 02/14/19 13:24 - Respiratory Orders Oxygen / L per min Smoking Cessation: Smoking cessation has been advised. For more information, call the [place] Tobacco Quit Line at 3-188-GKMN-NOW. - Advance Directives Code Status: Full Code - Mobility Orders Ambulate - Rehabiliation Orders Rehab Potential: Fair Rehab Orders: Evaluation for Physical Therapy, Evaluation for Occupational Therapy - Diet Orders Regular CERTIFICATION: I certify that the transfer of the above named patient to an Extended Care Facility is necessary for the continuing treatment of the diagnosis listed. The above information is true and accurate reflection of patient's current condition. Confidential - Redisclosure prohibited without a patient's written consent.
[2019-03-21] MEDS ORDERED: predniSONE 20 MG TABLET PO SCH (09:00)
[2019-03-21 09:20] LABS: BUN/Creatinine Ratio 42 (6-26); Blood Urea Nitrogen 31 mg/dL (6-20); Calcium 8.8 mg/dL (8.6-10.3); Carbon Dioxide > 45 mEq/L (23-29); Chloride 96 mEq/L (98-107); Glucose 87 mg/dL (70-105); Magnesium 2.4 mg/dL (1.6-2.6); Osmolality,Calculated 310 (280-300); Phosphorous 3.9 mg/dL (2.7-4.5); Potassium 3.4 mEq/L (3.5-5.1); Sodium 147 mEq/L (136-145); eGFR For Non-African Americans > 60 (> 60)
[2019-03-21 15:45] LABS: ABG Base Excess 16 mEq/L (-2 to 3); ABG HCO3 44 mEq/L (21-27); ABG Oxygen Saturation 89 % (95-98); ABG PCO2 66 mmHg (35-45); ABG PH 7.43 pH Units (7.32-7.45); ABG PO2 57 mmHg (85-104); ABG TCO2 46 mEq/L (20-26)
[2019-03-21 16:12] VITALS: BP 117/86
== END 2019-03-21 20:10 | DRG 190 ==
LOC: EMEROOARM 09:14 → 2NENU 11:52
PROVIDERS: ADMIT Internal Medicine Nephrology; ATTEND Internal Medicine Nephrology

== ENCOUNTER 2019-09-17 21:47 | Observation (INO) ==
[2019-09-17] MEDS ORDERED: Aspirin 81 MG TAB.CHEW PO ONE (22:17)
[2019-09-17] MEDS: Nitroglycerin 0.4 MG TAB.SUBL SL PRN ×3 (22:43→23:12)
[2019-09-17 22:56] LABS: Basophils % 0.5 %; Eosinophils # 0.1 K/mcL (0.0-0.6); Eosinophils % 1.6 %; Hematocrit 44.2 % (35.3-44.9); Hemoglobin 14.4 g/dL (11.5-15.4); Immature Granulocytes % 0.5 % (0-4); Lymphocytes # 3.2 K/mcL (0.6-4.6); Lymphocytes % 40.8 %; Mean Corpuscular HGB Conc 32.6 g/dL (31.6-35.5); Mean Corpuscular Hemoglobin 29.6 pg (28.0-33.3); Mean Corpuscular Volume 90.8 fL (83.0-100.0); Mean Platelet Volume 9.5 fL (9.4-12.4); Monocytes % 12.8 %; Neutrophils # 3.5 K/mcL (1.6-8.9); Platelet Count 181 K/mcL (140-400); Red Blood Count 4.87 M/mcL (3.82-4.97); Red Cell Distribution Width 12.6 % (11.5-14.5); Segmented Neutrophils % 43.8 %
[2019-09-17 23:02] LABS: INR 0.9
[2019-09-17 23:05] LABS: Activated Partial Thrombo Time 30.1 Seconds (26.0-36.0)
[2019-09-17 23:08] LABS: BUN/Creatinine Ratio 17 (6-26); Blood Urea Nitrogen 16 mg/dL (8-23); Carbon Dioxide 34 mEq/L (23-29); Chloride 100 mEq/L (98-107); Glucose 141 mg/dL (70-105); Osmolality,Calculated 296 (280-300); Potassium 4.2 mEq/L (3.5-5.1); Sodium 141 mEq/L (136-145); eGFR For African Americans > 60 (> 60); eGFR For Non-African Americans > 60 (> 60)
[2019-09-17] MEDS ORDERED: Morphine Sulfate 2 MG/ML SYRINGE IVP ONE (23:51)
[2019-09-18 00:11] LABS: Troponin I < 0.03 ng/mL (< 0.04)
[2019-09-18] MEDS ORDERED: Naloxone 0.4 MG/ML INJ IVP PRN (06:13)
[2019-09-18] MEDS ORDERED: D5% in Water 1,000 ML IVC PRN (06:14)
[2019-09-18] MEDS ORDERED: *HR* Dextrose 50 % in Water (Syg) 50 ML SYRINGE IVP PRN (06:14)
[2019-09-18] MEDS ORDERED: Dextrose Gel 15 GM/37.5 ML TUBE PO PRN ×2 (06:14)
[2019-09-18 06:46] LABS: Hemoglobin 14.7 g/dL (11.5-15.4); Mean Corpuscular Hemoglobin 29.7 pg (28.0-33.3); Mean Corpuscular Volume 92.9 fL (83.0-100.0); Mean Platelet Volume 9.4 fL (9.4-12.4); Platelet Count 186 K/mcL (140-400); Red Blood Count 4.95 M/mcL (3.82-4.97); Red Cell Distribution Width 12.7 % (11.5-14.5); White Blood Count 7.4 K/mcL (4.3-11.1)
[2019-09-18 07:12] LABS: BUN/Creatinine Ratio 20 (6-26); Blood Urea Nitrogen 17 mg/dL (8-23); Calcium 8.8 mg/dL (8.6-10.3); Carbon Dioxide 38 mEq/L (23-29); Chloride 98 mEq/L (98-107); Glucose 137 mg/dL (70-105); Osmolality,Calculated 302 (280-300); Potassium 4.6 mEq/L (3.5-5.1); Sodium 144 mEq/L (136-145); Troponin I < 0.03 ng/mL (< 0.04); eGFR For African Americans > 60 (> 60); eGFR For Non-African Americans > 60 (> 60)
[2019-09-18] MEDS: Insulin LISPRO 300 UNITS/3 ML VIAL SQ SCH ×3 (07:34→17:13)
[2019-09-18] MEDS: *HR* Heparin 5,000 UNIT/ML VIAL SQ SCH (17:15)
[2019-09-18] MEDS ORDERED: Acetaminophen 325 MG TABLET PO ONE (21:32)
[2019-09-19] MEDS: Insulin LISPRO 300 UNITS/3 ML VIAL SQ SCH ×2 (00:50→07:07)
[2019-09-19 02:10] LABS: Hematocrit 42.8 % (35.3-44.9); Hemoglobin 13.4 g/dL (11.5-15.4); Mean Corpuscular HGB Conc 31.3 g/dL (31.6-35.5); Mean Corpuscular Hemoglobin 29.6 pg (28.0-33.3); Mean Corpuscular Volume 94.7 fL (83.0-100.0); Mean Platelet Volume 9.4 fL (9.4-12.4); Platelet Count 174 K/mcL (140-400); Red Blood Count 4.52 M/mcL (3.82-4.97); Red Cell Distribution Width 12.6 % (11.5-14.5); White Blood Count 8.1 K/mcL (4.3-11.1)
[2019-09-19 02:22] LABS: BUN/Creatinine Ratio 28 (6-26); Blood Urea Nitrogen 19 mg/dL (8-23); Calcium 8.8 mg/dL (8.6-10.3); Carbon Dioxide 37 mEq/L (23-29); Chloride 97 mEq/L (98-107); Glucose 107 mg/dL (70-105); Osmolality,Calculated 295 (280-300); Potassium 3.9 mEq/L (3.5-5.1); Sodium 141 mEq/L (136-145); eGFR For African Americans > 60 (> 60); eGFR For Non-African Americans > 60 (> 60)
[2019-09-19] MEDS: *HR* Heparin 5,000 UNIT/ML VIAL SQ SCH (05:03)
[2019-09-19] MEDS ORDERED: Ibuprofen 600 MG TABLET PO ONE (05:33)
[2019-09-19 07:40] VITALS: BP 142/76
[2019-09-19] MEDS ORDERED: Aspirin Enteric Coated 81 MG Tablet PO SCH (08:00)
[2019-09-19] MEDS ORDERED: Bismuth Subsalicylate 120 ML ORAL SUSPENSION PO PRN (08:15)
[2019-09-19] MEDS ORDERED: Carbamide Peroxide 150 DROP/15 ML BOTTLE BOTH EARS SCH (09:00)
[2019-09-19] MEDS ORDERED: cloZAPine 25 MG TABLET PO SCH (09:00)
[2019-09-19] MEDS ORDERED: Loratadine 10 MG TABLET PO SCH (09:00)
[2019-09-19] MEDS ORDERED: Cholecalciferol (D-3) 1,000 UNIT (25MCG) TABLET PO SCH (09:00)
[2019-09-19] MEDS ORDERED: Divalproex (12 HR) 500 MG TABLET PO SCH ×2 (09:42→20:00)
[2019-09-19] MEDS ORDERED: (Icosapent Ethyl [Vascepa] 1 GM) PO SCH (16:00)
[2019-09-19] MEDS ORDERED: Ipratropium/Albuterol Neb 3 ML IH SCH (16:00)
[2019-09-19] MEDS ORDERED: Budesonide Neb 0.5 MG/2 ML IH SCH (20:00)
[2019-09-19] MEDS ORDERED: BETAXOLOL HCL OP SCH (20:00)
[2019-09-19] MEDS ORDERED: Latanoprost 2.5 ML BOTTLE RIGHT EYE SCH (20:00)
[2019-09-19] MEDS ORDERED: Furosemide 40 MG TABLET PO SCH (20:00)
[2019-09-19] MEDS ORDERED: (Formoterol Fumarate [Perforomist] 20 MCG) IH SCH (20:00)
[2019-09-19] MEDS ORDERED: Famotidine 20 MG TABLET PO SCH (20:00)
[2019-09-19] MEDS ORDERED: PrednisoLONE Acetate 1% Opth 5 ML BOTTLE RIGHT EYE SCH (20:00)
[2019-09-19] MEDS ORDERED: clonazePAM 0.5 MG TABLET PO SCH (20:00)
[2019-09-19] MEDS ORDERED: Brinzolamide 1% 10 ML BOTTLE RIGHT EYE SCH (20:00)
[2019-09-20] MEDS ORDERED: NON-FORMULARY MEDICATION 1 EACH EACH (Cholecalciferol (Vitamin D3) [Vitamin D3] 1,000 UNIT PO SCH (08:00)
[2019-09-20] MEDS ORDERED: Multivit/Ca/Min/Fe/FA 1 TAB TABLET PO SCH (08:00)
== END 2019-09-19 15:17 | disposition home or self-care (01) ==
LOC: EMEROOARM 21:47 → 3BNU 21:47
PROVIDERS: ADMIT Internal Medicine; ATTEND Internal Medicine

== ENCOUNTER 2020-05-28 23:00 | Inpatient (IN) ==
[2020-05-29 00:07] LABS: Basophils # 0.1 K/mcL (0.0-0.2); Basophils % 0.5 %; Eosinophils # 0.1 K/mcL (0.0-0.6); Eosinophils % 1.1 %; Hematocrit 50.2 % (35.3-44.9); Hemoglobin 15.5 g/dL (11.5-15.4); Immature Granulocytes % 1.2 % (0-4); Lymphocytes % 30.5 %; Mean Corpuscular HGB Conc 30.9 g/dL (31.6-35.5); Mean Corpuscular Hemoglobin 28.2 pg (28.0-33.3); Mean Corpuscular Volume 91.3 fL (83.0-100.0); Mean Platelet Volume 9.6 fL (9.4-12.4); Monocytes # 1.2 K/mcL (0.0-1.3); Monocytes % 11.9 %; Neutrophils # 5.4 K/mcL (1.6-8.9); Nucleated Red Blood Cells 0.3 /100 WBC (0); Platelet Count 185 K/mcL (140-400); Red Cell Distribution Width 13.2 % (11.5-14.5); Segmented Neutrophils % 54.8 %; White Blood Count 9.8 K/mcL (4.3-11.1)
[2020-05-29 00:14] LABS: VBG HCO3 38 mEq/L (21-27); VBG PCO2 70 mmHg (41-51); VBG PH 7.34 pH Units (7.32-7.42); VBG PO2 58 mmHg (25-50)
[2020-05-29 00:26] LABS: Acetaminophen < 10 mcg/mL (10-20); Alanine Aminotransferase 60 Units/L (7-52); Albumin 3.9 g/dL (3.5-5.7); Albumin/Globulin Ratio 1.1 (1.1-2.2); Alkaline Phosphatase 298 Units/L (34-104); Aspartate Amino Transferase 78 Units/L (13-39); BUN/Creatinine Ratio 25 (6-26); Bilirubin,Direct 0.1 mg/dL (0.0-0.2); Bilirubin,Indirect 0.4 mg/dL (0.0-1.0); Bilirubin,Total 0.5 mg/dL (0.3-1.0); Blood Urea Nitrogen 21 mg/dL (8-23); Calcium 9.7 mg/dL (8.6-10.3); Carbon Dioxide 34 mEq/L (23-29); Chloride 96 mEq/L (98-107); Creatine Kinase 27 Units/L (30-223); Ethanol < 10 mg/dL (Less than 10); Globulin 3.4 g/dL (2.4-3.5); Glucose 141 mg/dL (70-105); Lipase 54 Units/L (11-82); Osmolality,Calculated 299 (280-300); Potassium 3.6 mEq/L (3.5-5.1); Sodium 142 mEq/L (136-145); Total Protein 7.3 g/dL (6.4-8.9); eGFR For African Americans > 60 (> 60); eGFR For Non-African Americans > 60 (> 60)
[2020-05-29 00:27] LABS: Troponin I < 0.03 ng/mL (< 0.04)
[2020-05-29 01:09] LABS: Bilirubin,Urine Negative (Negative); Blood,Urine Small (Negative); Clarity,Urine Clear (Clear); Color,Urine Yellow (Yellow); Glucose,Urine (UA) Normal (Normal); Hyaline Casts,Urine Few per lpf (None Seen); Ketones,Urine Trace mg/dL (Negative); Leukocyte Esterase,Urine Negative (Negative); Mucus,Urine Few per lpf (None-Few); Nitrite,Urine Negative (Negative); Protein,Urine Negative (Neg-Trace); Specific Gravity,Urine 1.024 (1.010-1.025); Urobilinogen,Urine Normal (Normal); WBC,Urine 0-3 per hpf (0-3)
[2020-05-29] MEDS ORDERED: Azithromycin 500 MG in D5% in Water 250 ML IVPB ONE (01:15)
[2020-05-29] MEDS ORDERED: cefTRIAXone 1,000 MG in Water for inj. (sterile) 10 ML IVP ONE (01:16)
[2020-05-29] MEDS ORDERED: Naloxone 0.4 MG/ML INJ IVP PRN (03:05)
[2020-05-29 04:35] LABS: Hematocrit 45.6 % (35.3-44.9); Hemoglobin 14.2 g/dL (11.5-15.4); Mean Corpuscular HGB Conc 31.1 g/dL (31.6-35.5); Mean Corpuscular Hemoglobin 28.4 pg (28.0-33.3); Mean Corpuscular Volume 91.2 fL (83.0-100.0); Mean Platelet Volume 9.6 fL (9.4-12.4); Platelet Count 175 K/mcL (140-400); Red Cell Distribution Width 13.1 % (11.5-14.5); White Blood Count 9.8 K/mcL (4.3-11.1)
[2020-05-29 04:57] LABS: BUN/Creatinine Ratio 24 (6-26); Blood Urea Nitrogen 20 mg/dL (8-23); Calcium 9.2 mg/dL (8.6-10.3); Carbon Dioxide 35 mEq/L (23-29); Chloride 95 mEq/L (98-107); Glucose 166 mg/dL (70-105); Osmolality,Calculated 298 (280-300); Phosphorous 4.8 mg/dL (2.7-4.5); Potassium 3.6 mEq/L (3.5-5.1); Sodium 141 mEq/L (136-145); eGFR For African Americans > 60 (> 60); eGFR For Non-African Americans > 60 (> 60)
[2020-05-29] MEDS ORDERED: Ketorolac 15 MG/ML VIAL IVP PRN (05:28)
[2020-05-29] MEDS ORDERED: *HR* Dextrose 50 % in Water (Vial) 50 ML VIAL IVP PRN (12:49)
[2020-05-29] MEDS ORDERED: Dextrose Gel 15 GM/37.5 ML TUBE PO PRN ×2 (12:49)
[2020-05-29] MEDS ORDERED: D5% in Water 1,000 ML IVC PRN (12:49)
[2020-05-29] MEDS: Insulin LISPRO 300 UNITS/3 ML VIAL SQ SCH ×2 (15:42→20:09)
[2020-05-30] MEDS ORDERED: Bismuth Subsalicylate 120 ML ORAL SUSPENSION PO PRN (08:56)
[2020-05-30] MEDS ORDERED: Carbamide Peroxide 150 DROP/15 ML BOTTLE BOTH EARS SCH (09:00)
[2020-05-30] MEDS: Insulin LISPRO 300 UNITS/3 ML VIAL SQ SCH ×4 (09:00→21:14)
[2020-05-30] MEDS ORDERED: *HR* OxyCODONE/APAP 5/325 TABLET PO PRN (09:02)
[2020-05-30] MEDS: Divalproex (12 HR) 500 MG TABLET PO SCH ×3 (10:46→20:59)
[2020-05-30] MEDS: Brinzolamide 1% 10 ML BOTTLE RIGHT EYE SCH ×2 (10:48→21:02)
[2020-05-30] MEDS: cloZAPine 25 MG TABLET PO SCH ×3 (11:04→21:00)
[2020-05-30] MEDS: PrednisoLONE Acetate 1% Opth 5 ML BOTTLE RIGHT EYE SCH ×2 (11:05→21:05)
[2020-05-30] MEDS: Icosapent Ethyl [Vascepa] 1 GM PO SCH ×2 (13:29→21:05)
[2020-05-30] MEDS ORDERED: NON-FORMULARY MEDICATION 1 EACH EACH (Brinzolamide/Brimonidine Tart [Simbrinza 1%-0.2% Eye RIGHT EYE SCH (20:00)
[2020-05-30] MEDS: Furosemide 40 MG TABLET PO SCH (20:59)
[2020-05-30] MEDS ORDERED: Latanoprost 2.5 ML BOTTLE RIGHT EYE SCH (21:00)
[2020-05-30] MEDS ORDERED: clonazePAM 0.5 MG TABLET PO SCH (21:00)
[2020-05-31] MEDS: Divalproex (12 HR) 500 MG TABLET PO SCH (08:54)
[2020-05-31] MEDS: Furosemide 40 MG TABLET PO SCH (08:54)
[2020-05-31] MEDS: Insulin LISPRO 300 UNITS/3 ML VIAL SQ SCH (08:56)
[2020-05-31] MEDS: Brinzolamide 1% 10 ML BOTTLE RIGHT EYE SCH (08:57)
[2020-05-31] MEDS: Icosapent Ethyl [Vascepa] 1 GM PO SCH (08:57)
[2020-05-31] MEDS: PrednisoLONE Acetate 1% Opth 5 ML BOTTLE RIGHT EYE SCH (08:58)
[2020-05-31] MEDS: cloZAPine 25 MG TABLET PO SCH (08:59)
[2020-05-31] MEDS ORDERED: Loratadine 10 MG TABLET PO SCH (09:00)
[2020-05-31] MEDS ORDERED: Cholecalciferol (D-3) 1,000 UNIT (25MCG) TABLET PO SCH (09:00)
[2020-05-31] MEDS ORDERED: Multivit/Ca/Min/Fe/FA 1 TAB TABLET PO SCH (09:00)
[2020-05-31] MEDS ORDERED: Aspirin Enteric Coated 81 MG Tablet PO SCH (09:00)
[2020-05-31 11:41] VITALS: BP 120/76
== END 2020-05-31 13:43 | DRG 552 ==
LOC: EMEROOARM 23:00 → 3BNU 23:00 → SUATTDRO 05-29 02:21 → 3BNU 05-29 02:55
PROVIDERS: ADMIT Student in an Organized Health Care Education/Training Program; ATTEND Internal Medicine